=== PATIENT | female | born 1950 | race African-American/Black ===

== ENCOUNTER 2016-07-03 00:10 | Inpatient (IN) | payer OTHER ==
--- NOTE | 2016-07-03 00:52 | PDOC ---
History of Present Illness - General History Source: Patient <Cabrera Rodríguez - Last Filed: 07/03/16 02:02> - General History Source: Patient Exam Limitations: No Limitations - History of Present Illness Initial Comments: 07/03/16 01:15 The patient is a 65 year old female with significant past medical history of CVA with left-sided residual, DVTs (on eliquis and lasix), CAD s/p card cath and stent placement 2014, hypertension, and hyperlipidemia who presents to the ED with 1 day of left ankle pain and swelling. Patient reports she is able to ambulate with cane, however yesterday she was unable to ambulate secondary to moderate left ankle swelling and pain. She states she is unable to bear weight on her left leg. Denies trauma to the area or any recent falls. The patient denies fever, chills, cough, SOB, chest pain, and palpitations. The patient denies abdominal pain, nausea, vomiting, and diarrhea. Allergies: penicillin, hydromorphone HCl Social History: No alcohol, tobacco, or drug use reported. Past Surgical History: Cholecystectomy, Hysterectomy, Tonsillectomy PCP: Dr. Emily Cole <Vanessa Ward - Last Filed: 07/03/16 03:16> - General Chief Complaint: Injury Stated Complaint: ANKLE PAIN Time Seen by Provider: 07/03/16 00:50 Past History - Past Medical History Anemia: No Asthma: No Cancer: No Cardiac Disorders: Yes CVA: Yes COPD: No CHF: No Dementia: No Diabetes: No GI Disorders: Yes (REFLUX.) Disorders: No HTN: Yes Hypercholesterolemia: Yes Liver Disease: No Seizures: No Thyroid Disease: No - Surgical History Abdominal Surgery: Yes Cardiac Surgery: Yes (stent placement) Cholecystectomy: Yes Lung Surgery: No Neurologic Surgery: No Orthopedic Surgery: No - Immunization History Immunization Up to Date: No - Psycho/Social/Smoking Cessation Hx Anxiety: No Suicidal Ideation: No Smoking Status: No Smoking History: Never smoked Have you smoked in the past 12 months: No Number of Cigarettes Smoked Daily: 0 Cigars Per Day: 0 Information on smoking cessation initiated: No Hx Alcohol Use: No Drug/Substance Use Hx: No Substance Use Type: None Hx Substance Use Treatment: No <Cabrera Rodríguez - Last Filed: 07/03/16 02:02> <Vanessa Ward - Last Filed: 07/03/16 03:16> - Past Medical History Allergies/Adverse Reactions: Allergies Allergy/AdvReac Type Severity Reaction Status Date / Time Penicillins Allergy Verified 07/03/16 00:24 hydromorphone HCl AdvReac Severe HALLUCINATI Verified 07/03/16 00:24 [From Dilaudid] ONS Home Medications: Ambulatory Orders Atorvastatin Ca [Lipitor] 80 mg PO HS 02/24/16 Baclofen 10 mg PO DAILY 02/24/16 Colchicine [Mitigare] 0.6 mg PO DAILY 02/24/16 Docusate Sodium [Colace -] 200 mg PO DAILY 02/24/16 Gabapentin [Neurontin -] 300 mg PO Q8H 02/24/16 Metoprolol Succinate [Toprol Xl] 25 mg PO BID 02/24/16 Apixaban [Eliquis] 5 mg PO BID 07/03/16 Famotidine [Pepcid -] 20 mg PO BID 07/03/16 Famotidine [Pepcid -] 40 mg PO BID 07/03/16 Ipratropium/Albuterol Sulfate [Combivent Respimat Inhal [place]] 20 mcg IH PRN Potassium Acetate [Potassium Acetate -] 20 meq PO BID 07/03/16 Tramadol HCl/Acetaminophen [Tramadol-Acetaminophn 37.5-325] 1 each PO QID Review of Systems - Review of Systems Able to Perform ROS?: Yes Comments:: 07/03/16 01:15 CONSTITUTIONAL: Absent: fever, no chills, no fatigue EYES: Absent: visual changes ENT: Absent: ear pain, no sore throat CARDIOVASCULAR: Absent: chest pain, no palpitations RESPIRATORY: Absent: cough, no SOB GI: Absent: abdominal pain, no nausea, no vomiting, no constipation, no diarrhea GENITOURINARY: Absent: dysuria, no frequency, no hematuria MUSCULOSKELETAL: +left ankle pain and swelling Absent: back pain, no myalgia SKIN: Absent: rash NEURO: Absent: headache <Vanessa Ward - Last Filed: 07/03/16 03:16> *Physical Exam - Vital Signs Last Vital Signs Temp Pulse Resp BP Pulse Ox 98.6 F 90 14 144/61 96 07/03/16 00:24 07/03/16 00:24 07/03/16 00:24 07/03/16 00:24 07/03/16 00:24 <Cabrera Rodríguez - Last Filed: 07/03/16 02:02> - Vital Signs Last Vital Signs Temp Pulse Resp BP Pulse Ox 98.6 F 90 14 144/61 96 07/03/16 00:24 07/03/16 00:24 07/03/16 00:24 07/03/16 00:24 07/03/16 00:24 - Physical Exam Comments: 07/03/16 01:15 GENERAL: Well-appearing, well-nourished. Mild distress. HEENT: Normocephalic, atraumatic. PERRL, EOM intact. CARDIOVASCULAR: Normal S1, S2. Regular rate and rhythm. PULMONARY: Clear to auscultation bilaterally. ABDOMEN: Obese. Soft, non-distended, non-tender. EXTREMITIES: Decreased ROM of left calf and ankle secondary to pain. Mild diffuse swelling and tenderness from the left calf to the foot. No bony deformities. SKIN: Warm, dry. No rash NEUROLOGICAL: No focal neurological deficits. <Vanessa Ward - Last Filed: 07/03/16 03:16> Heart Score/ECG Review - ECG Impressions Comment:: 07/03/16 03:15 Sinus rhythm with frequent premature ventricular complexes @86bpm Low voltage QRS Cannot r/o Anterior infarct, age undetermined Abnormal ECG <Vanessa Ward - Last Filed: 07/03/16 03:16> ED Treatment Course - LABORATORY CBC & Chemistry Diagram: 07/03/16 02:24 07/03/16 02:24 - RADIOLOGY Radiograph Interpretation: 07/03/16 01:57 EXAM: Venous duplex unilateral, left lower extremity Reviewed by Imaging operations staff specialist security: FINDINGS: Left common femoral vein is patent. There is partially occlusive thrombus throughout the superficial femoral vein and popliteal vein. IMPRESSION: Partially occlusive thrombus throughout the left superficial femoral vein and popliteal vein. - Medications Given in the ED: ED Medications Discontinued Medications Generic Name Dose Route Start Last Admin Trade Name Freq PRN Reason Stop Dose Admin Furosemide 40 mg 07/03/16 00:53 07/03/16 01:04 Lasix - PO 07/03/16 00:54 40 mg ONCE ONE Administration Tramadol HCl 50 mg 07/03/16 00:54 07/03/16 01:04 Ultram - PO 07/03/16 00:55 50 mg ONCE ONE Administration <Vanessa Ward - Last Filed: 07/03/16 03:16> Medical Decision Making - Medical Decision Making 07/03/16 02:02 Dr. Rodríguez: The scribe's documentation has been prepared under my direction and personally reviewed by me in its entirery. I confirm that the note above accurately reflects all work, treatment, procedures, and medical decision making performed by me. Pt found to have left leg DVT with partially occlusive thrombus throughout the superficial femoral veins and popliteal vein. Pt will admit <Cabrera Rodríguez - Last Filed: 07/03/16 02:02> - Medical Decision Making 07/03/16 02:[address] Emily Cole (via answering service) at 2:00 Awaiting call back 07/03/16 02:23 Second call placed to Dr. Cole (via answering service) at 2:23 Awaiting call back 07/03/16 02:24 Patient's case discussed with Dr. Cole at 2:24 <Vanessa Ward - Last Filed: 07/03/16 03:16> *DC/Admit/Observation/Transfer - Discharge Dispostion Admit: Yes <Cabrera Rodríguez - Last Filed: 07/03/16 02:02> - Attestations Scribe Attestion: 07/03/16 01:16 Documentation prepared by Vanessa Ward, acting as medical records receptionist for Cabrera Rodríguez MD <Vanessa Ward - Last Filed: 07/03/16 03:16> Diagnosis at time of Disposition: Left leg DVT - Referrals
[2016-07-03] MEDS ORDERED: FUROSEMIDE 40 MG TABLET (FP) PO ONE (00:53)
[2016-07-03] MEDS ORDERED: traMADol HCL 50 MG TABLET PO ONE (00:54)
[2016-07-03] MEDS ORDERED: FUROSEMIDE 40 MG TABLET (FP) ONE (01:02)
[2016-07-03] MEDS ORDERED: traMADol HCL 50 MG TABLET ONE (01:02)
[2016-07-03] MEDS ORDERED: HEPARIN NA (PORCINE) 5,000 UNITS/ML 1ML VIAL IVPUSH PRN ×2 (02:25)
[2016-07-03] MEDS ORDERED: HEPARIN INFUSION - 500 ML IVPB SCH (02:30)
[2016-07-03 02:32] LABS: EOSINOPHIL 2.5 % (0-4.5); MCHC 32.5 g/dl (32.0-36.0); MEAN PLT VOLUME 9.9 fl (7.5-11.1); NEUTROPHILS 53.8 % (42.8-82.8); PLATELET COUNT 200 K/MM3 (134-434); RDW 17.5 % (11.6-15.6); WHITE BLOOD COUNT 8.9 K/mm3 (4.0-10.0)
[2016-07-03 02:46] LABS: INR 1.48 (0.82-1.09); PROTHROMBIN TIME (PATIENT) 16.4 SEC (9.98-11.88)
[2016-07-03 02:57] LABS: ALBUMIN 3.4 g/dl (3.4-5.0); ALK PHOS 78 U/L (45-117); ANION GAP 11 (8-16); BILIRUBIN,TOTAL 0.4 mg/dL (0.2-1.0); CALCIUM 9.1 mg/dL (8.5-10.1); CO2 29 mmol/L (21-32); CREATININE 0.8 mg/dL (0.55-1.02); GLUCOSE,RANDOM 161 mg/dL (74-106); SGOT/AST 19 U/L (15-37); SGPT/ALT 18 U/L (12-78); TOT PROT 7.8 g/dl (6.4-8.2)
[2016-07-03] MEDS ORDERED: HEPARIN INFUSION - 500 ML IVPB ONE (03:54)
[2016-07-03 04:22] LABS: URINE APPEARANCE CLEAR; URINE BILIRUBIN NEGATIVE (NEGATIVE); URINE COLOR LTYELLOW; URINE GLUCOSE (UA) NEGATIVE (NEGATIVE); URINE KETONE NEGATIVE (NEGATIVE); URINE LEUK ESTERASE NEGATIVE (NEGATIVE); URINE NITRITE NEGATIVE (NEGATIVE); URINE PROTEIN NEGATIVE (NEGATIVE); URINE UROBILINOGEN NEGATIVE E.U./dl (0.2-1.0)
[2016-07-03 04:24] LABS: URINE BLOOD 1+ (NEGATIVE)
[2016-07-03 04:27] LABS: URINE BACTERIA RARE /hpf (NONE SEEN); URINE HYALINE CAST 1 /lpf; URINE MUCUS RARE; URINE RBC 2 /hpf (0-3); URINE WBC 1 /hpf (3-5)
[2016-07-03] MEDS ORDERED: ALBUTEROL SO4 0.083% IH SOL 2.5 MG/3 ML VIAL.NEB. NEB PRN (05:50)
[2016-07-03 06:22] VITALS: BMI 48.7
[2016-07-03] MEDS: FUROSEMIDE 40 MG TABLET (FP) PO SCH ×2 (06:35→15:07)
[2016-07-03] MEDS: GABAPENTIN 300 MG CAPSULE (FP) PO SCH ×3 (06:35→21:46)
--- NOTE | 2016-07-03 09:30 | HP ---
Admitting History and Physical - Primary Care Physician PCP: Marcelino Hercules - Admission Chief Complaint: left ankle and foot pain History of Present Illness: developed worsenig left ankle and foot pain with increased swelling over the past 2-3 days. was at her son's birthday 4 days ago, was well at that time denies, trauma or fall since recent prolonged hospitalizations has been using quad-cane at home and bedside commode needs some assistance in adls admitted to [facility] 01.03 for right pontine cva-residual left hemiparesis left LLE DVT, pulmonary embolism 03.05-thrombectomy and CABG at [facility] has been on asa, plavix and warfarin since, but warfarin dose was difficult to adjust within therapeutic range so was switched to eliquis since early 06.06 History Source: Patient Limitations to Obtaining History: No Limitations - Past Medical History 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: CVA (Right pontine CVA with residual left hemiparesis) Cardiovascular: Yes: AFIB, CAD (s/p card cath and LAD-DESstent placement summer CABG ), HTN, Hyperlipdemia Pulmonary: Yes: Sleep Apnea Gastrointestinal: Yes: Hiatal Hernia, Other (H/o H.pylori, was treated 2014 year ago.) Psych: Yes: Anxiety Musculoskeletal: Yes: Hemiparesis Rheumatology: Yes: Gout Endocrine: Yes: Diabetes Mellitus (diet controlled) - Past Surgical History Past Surgical History: Yes: CABG (2015), Cholecystectomy, Hysterectomy, Tonsillectomy Additional Past Surgical History: thrombectomy after Pulmonary embolism - Advance Directives Advance Directives: Yes: Health Care Proxy - Smoking History Smoking history: Never smoked Have you smoked in the past 12 months: No Aproximately how many cigarettes per day: 0 - Alcohol/Substance Use Hx Alcohol Use: No - Social History Usual Living Arrangement: Yes: With Child ADL: Independent History of Recent Travel: No Home Medications - Allergies Allergies/Adverse Reactions: Allergies Allergy/AdvReac Type Severity Reaction Status Date / Time Penicillins Allergy Verified 07/03/16 00:24 hydromorphone HCl AdvReac Severe HALLUCINATI Verified 07/03/16 00:24 [From Dilaudid] ONS - Home Medications Home Medications: Ambulatory Orders Atorvastatin Ca [Lipitor] 80 mg PO HS 02/24/16 Baclofen 10 mg PO DAILY 02/24/16 Colchicine [Mitigare] 0.6 mg PO DAILY 02/24/16 Docusate Sodium [Colace -] 200 mg PO DAILY 02/24/16 Gabapentin [Neurontin -] 300 mg PO Q8H 02/24/16 Metoprolol Succinate [Toprol Xl] 25 mg PO BID 02/24/16 Apixaban [Eliquis] 5 mg PO BID 07/03/16 Famotidine [Pepcid -] 20 mg PO BID 07/03/16 Famotidine [Pepcid -] 40 mg PO BID 07/03/16 Ipratropium/Albuterol Sulfate [Combivent Respimat Inhal [place]] 20 mcg IH PRN Potassium Acetate [Potassium Acetate -] 20 meq PO BID 07/03/16 Tramadol HCl/Acetaminophen [Tramadol-Acetaminophn 37.5-325] 1 each PO QID Family Disease History - Family Disease History Family Disease History: Diabetes: Father, Heart Disease: Mother Review of Systems - Review of Systems Constitutional: reports: No Symptoms Eyes: reports: No Symptoms HENT: reports: No Symptoms Neck: reports: No Symptoms Cardiovascular: reports: No Symptoms Gastrointestinal: reports: No Symptoms Genitourinary: reports: No Symptoms Breasts: reports: No Symptoms Reported Musculoskeletal: reports: Other (severe left foot and ankle pain, unable to bear weight on it) Physical Examination Vital Signs: Vital Signs Temperature 98.8 F 07/03/16 04:53 Pulse Rate 75 07/03/16 04:53 Respiratory Rate 18 07/03/16 05:12 Blood Pressure 142/70 07/03/16 04:53 O2 Sat by Pulse Oximetry (%) 95 07/03/16 05:12 Constitutional: Yes: Calm Eyes: Yes: EOM Intact HENT: Yes: Normocephalic Neck: Yes: Trachea Midline Cardiovascular: Yes: Regular Rate and Rhythm Respiratory: Yes: CTA Bilaterally Gastrointestinal: Yes: Normal Bowel Sounds, Soft Edema: Yes Edema: LLE: 2+, RLE: Trace Peripheral Pulses WNL: Yes Neurological: Yes: Alert, Oriented, Weakness (left hemiparesis, mild aphasia) Psychiatric: Yes: WNL Labs: CBC, BMP 07/03/16 02:24 07/03/16 02:24 Imaging - Results Chest X-ray: Report Reviewed Ultrasound: Report Reviewed (left spf.femoral and popliteal DVT) Problem List - Problems (1) Left leg DVT Code(s): I82.402 - ACUTE EMBOLISM AND THOMBOS UNSP DEEP VEINS OF L LOW EXTREM Qualifiers: Affected thrombotic vein of extremity: femoral Chronicity: unspecified Qualified Code(s): I82.412 - Acute embolism and thrombosis of left femoral vein (2) CAD (coronary artery disease), [place] coronary artery Code(s): I25.10 - ATHSCL HEART DISEASE OF [place] CORONARY ARTERY W/O ANG PCTRS Qualifiers: [place] vs. transplanted heart: [place] heart (3) HTN (hypertension) Code(s): I10 - ESSENTIAL (PRIMARY) HYPERTENSION Qualifiers: Hypertension type: essential hypertension Qualified Code(s): I10 - Essential (primary) hypertension (4) Hyperlipidemia Code(s): E78.5 - HYPERLIPIDEMIA, UNSPECIFIED Qualifiers: Hyperlipidemia type: unspecified Qualified Code(s): E78.5 - Hyperlipidemia, unspecified (5) Stroke Code(s): I63.9 - CEREBRAL INFARCTION, UNSPECIFIED Qualifiers: CVA mechanism: occlusion Precerebral and cerebral artery: vertebral artery Laterality of affected vessel: right Qualified Code(s): I63.211 - Cerebral infarction due to unspecified occlusion or stenosis of right vertebral arteries Assessment/Plan DVT in left lower extremity -known since on ASA/Plavix/Eliquis at home, no prior studies available at this point to compare if it is stable/worse or better, however increased swelling and pain will obtain old records from [facility] to review r/o gout, check uric acid level, xray vascular evaluation iv heparin for now, continue asa/plavix bedrest pain control
[2016-07-03] MEDS ORDERED: POTASSIUM ACETATE PO SCH (10:00)
[2016-07-03] MEDS ORDERED: CLOPIDOGREL BISULFATE 75 MG TABLET (FP) PO SCH (10:00)
[2016-07-03 11:07] LABS: URIC ACID 7.7 mg/dL (2.6-7.2)
[2016-07-03] MEDS: METOPROLOL SUCCINATE 25 MG TAB.SR.24H (FP) PO SCH ×2 (11:17→21:47)
[2016-07-03] MEDS: POTASSIUM CHLORIDE TABS 20 MEQ TABLET.ER (FP) PO SCH ×2 (11:18→21:46)
[2016-07-03] MEDS: traMADol HCL 50 MG TABLET PO PRN ×2 (11:18→18:12)
[2016-07-03] MEDS: DOCUSATE SODIUM 100 MG CAPSULE (FP) PO SCH (11:18)
[2016-07-03] MEDS: NYSTATIN POWDER 100,000 UNITS/GM - 15 GM TOPICAL POWDER TP SCH (11:19)
--- NOTE | 2016-07-03 11:36 | EKG ---
Test Reason : Blood Pressure : / mmHG Vent. Rate : 086 BPM Atrial Rate : 086 BPM P-R Int : 180 ms QRS Dur : 096 ms QT Int : 382 ms P-R-T Axes : 040 -05 019 degrees QTc Int : 457 ms SINUS RHYTHM WITH FREQUENT PREMATURE VENTRICULAR COMPLEXES LOW VOLTAGE QRS CANNOT RULE OUT ANTERIOR INFARCT (CITED ON OR BEFORE 11-NOV-2011) ABNORMAL ECG WHEN COMPARED WITH ECG OF 24-FEB-2016 08:59, FUSION COMPLEXES ARE NO LONGER PRESENT Confirmed by BRISEYDA PATRICK MD ([id number]) on 07/03/2016 11:36:11 AM Referred By: Confirmed By:BRISEYDA PATRICK MD
--- NOTE | 2016-07-03 12:55 | CON.CARD ---
Consult Consult Specialty:: cardiology Reason for Consultation:: extensive cardiac/cerebrovascular hx; new DVT - History of Present Illness Chief Complaint: Pt A&Ox3; exquisite pain on small dorsal area of left foot; no chest pain or dyspnea; no calf pain History of Present Illness: The patient is a 65 year old female with significant past medical history of CVA with left-sided residual weakness, DVTs (on eliquis and lasix), CAD s/p card cath and stent placement 2014, hypertension, and hyperlipidemia who presents to the ED with 1 day of left ankle pain and swelling. Patient reports she is able to ambulate with cane, however, yesterday she was unable to ambulate secondary to moderate left ankle swelling and pain. She states she is unable to bear weight on her left leg. Denies trauma to the area or any recent falls. The patient denies fever, chills, cough, SOB, chest pain, and palpitations. The patient denies abdominal pain, nausea, vomiting, and diarrhea. Allergies: penicillin, hydromorphone HCl Social History: No alcohol, tobacco, or drug use reported. Past Surgical History: Cholecystectomy, Hysterectomy, Tonsillectomy PCP: Dr. 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 (Right pontine CVA with residual left hemiparesis) Cardio/Vascular: Yes: AFIB, CAD (s/p card cath and LAD-DESstent placement summer CABG ), HTN, Hyperlipdemia Pulmonary: Yes: Sleep Apnea Gastrointestinal: Yes: Hiatal Hernia, Other (H/o H.pylori, was treated 2014 year ago.) Reproductive: Yes: Postmenopausal ...: No Psych: Yes: Anxiety Musculoskeletal: Yes: Hemiparesis Rheumatology: Yes: Gout Endocrine: Yes: Diabetes Mellitus (diet controlled) - Past Surgical History Past Surgical History: Yes: CABG (2015), Cholecystectomy, Hysterectomy, Tonsillectomy - Alcohol/Substance Use Hx Alcohol Use: No - Smoking History Smoking history: Never smoked Have you smoked in the past 12 months: No Aproximately how many cigarettes per day: 0 - Social History Usual Living Arrangement: With Significant Other ADL: Independent History of Recent Travel: No Home Medications - Allergies Allergies/Adverse Reactions: Allergies Allergy/AdvReac Type Severity Reaction Status Date / Time Penicillins Allergy Verified 07/03/16 00:24 hydromorphone HCl AdvReac Severe HALLUCINATI Verified 07/03/16 00:24 [From Dilaudid] ONS - Home Medications Home Medications: Ambulatory Orders Atorvastatin Ca [Lipitor] 80 mg PO HS 02/24/16 Baclofen 10 mg PO DAILY 02/24/16 Colchicine [Mitigare] 0.6 mg PO DAILY 02/24/16 Docusate Sodium [Colace -] 200 mg PO DAILY 02/24/16 Gabapentin [Neurontin -] 300 mg PO Q8H 02/24/16 Metoprolol Succinate [Toprol Xl] 25 mg PO BID 02/24/16 Apixaban [Eliquis] 5 mg PO BID 07/03/16 Famotidine [Pepcid -] 20 mg PO BID 07/03/16 Famotidine [Pepcid -] 40 mg PO BID 07/03/16 Ipratropium/Albuterol Sulfate [Combivent Respimat Inhal [place]] 20 mcg IH PRN Potassium Acetate [Potassium Acetate -] 20 meq PO BID 07/03/16 Tramadol HCl/Acetaminophen [Tramadol-Acetaminophn 37.5-325] 1 each PO QID Family Disease History - Family Disease History Family Disease History: Diabetes: Father, Heart Disease: Mother Vital Signs: Vital Signs Temperature 98.5 F 07/03/16 09:00 Pulse Rate 84 07/03/16 09:00 Respiratory Rate 20 07/03/16 09:00 Blood Pressure 139/62 07/03/16 09:00 O2 Sat by Pulse Oximetry (%) 96 07/03/16 09:00 - Other Data Labs, Other Data: CBC, BMP 07/03/16 02:24 07/03/16 02:24 INR, PTT INR 1.48 (0.82-1.09) H 07/03/16 02:24 Problem List - Problems (1) Left leg DVT Assessment/Plan: Reords obtained from [facility] note 02/2017 US of lower extremities, with conclusion of DVT with occluded left femoral-->popliteal artery. This is in the same area as today's US, and was discussed with Dr. Bell, radiologist who read today's report. 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 Recommend continuing apixaban 5 mg bid and ASA 81 mg daily. May discontinue clopidogrel (last coronary stent 2014; s/p CABG 2016; hx rectal bleed). 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 Code(s): F06.31 - MOOD DISORDER DUE TO KNOWN PHYSIOL COND W DEPRESSV FEATURES (4) HTN (hypertension) Code(s): I10 - ESSENTIAL (PRIMARY) HYPERTENSION Qualifiers: Hypertension type: essential hypertension Qualified Code(s): I10 - Essential (primary) hypertension (5) Hyperlipidemia Code(s): E78.5 - HYPERLIPIDEMIA, UNSPECIFIED Qualifiers: Hyperlipidemia type: unspecified Qualified Code(s): E78.5 - Hyperlipidemia, unspecified (6) Stroke Code(s): I63.9 - CEREBRAL INFARCTION, UNSPECIFIED Qualifiers: CVA mechanism: occlusion Precerebral and cerebral artery: vertebral artery Laterality of affected vessel: right Qualified Code(s): I63.211 - Cerebral infarction due to unspecified occlusion or stenosis of right vertebral arteries (7) Obesity Code(s): E66.9 - OBESITY, UNSPECIFIED
[2016-07-03 13:20] LABS: CHOLESTEROL 167 mg/dL (50-200); LDL CHOLESTEROL (ONLY SJRH) 95 mg/dL (5-100)
[2016-07-03] MEDS ORDERED: ACETAMINOPHEN WITH CODEINE 300MG/30MG TABLET PO PRN (13:32)
[2016-07-03] MEDS: APIXABAN 5 MG TABLET PO SCH (21:45)
[2016-07-03] MEDS: ATORVASTATIN CA 80 MG TABLET (FP) PO SCH (21:46)
[2016-07-03] MEDS: POLYETHYLENE GLYCOL 3350 119 GM BTL PO SCH (21:46)
--- NOTE | 2016-07-03 23:26 | CONSULT ---
Consult - History of Present Illness History of Present Illness: 65 yo female with history of left leg DVT in February 2016. She subsequently required CABG and had vein taken from left calf. She has been on Eliquis and aspirin. She was admitted with new swelling in the left ankle and leg pain. 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: CVA (Right pontine CVA with residual left hemiparesis) Cardio/Vascular: Yes: AFIB, CAD (s/p card cath and LAD-DESstent placement summer CABG ), HTN, Hyperlipdemia Pulmonary: Yes: Sleep Apnea Gastrointestinal: Yes: Hiatal Hernia, Other (H/o H.pylori, was treated 2014 year ago.) ...: No Psych: Yes: Anxiety Musculoskeletal: Yes: Hemiparesis Rheumatology: Yes: Gout Endocrine: Yes: Diabetes Mellitus (diet controlled) - Past Surgical History Past Surgical History: Yes: CABG (2015), Cholecystectomy, Hysterectomy, Tonsillectomy - Alcohol/Substance Use Hx Alcohol Use: No - Smoking History Smoking history: Never smoked Have you smoked in the past 12 months: No Aproximately how many cigarettes per day: 0 - Social History Usual Living Arrangement: With Significant Other ADL: Independent History of Recent Travel: No Home Medications - Allergies Allergies/Adverse Reactions: Allergies Allergy/AdvReac Type Severity Reaction Status Date / Time Penicillins Allergy Verified 07/03/16 00:24 hydromorphone HCl AdvReac Severe HALLUCINATI Verified 07/03/16 00:24 [From Dilaudid] ONS - Home Medications Home Medications: Ambulatory Orders Atorvastatin Ca [Lipitor] 80 mg PO HS 02/24/16 Baclofen 10 mg PO DAILY 02/24/16 Colchicine [Mitigare] 0.6 mg PO DAILY 02/24/16 Docusate Sodium [Colace -] 200 mg PO DAILY 02/24/16 Gabapentin [Neurontin -] 300 mg PO Q8H 02/24/16 Metoprolol Succinate [Toprol Xl] 25 mg PO BID 02/24/16 Apixaban [Eliquis] 5 mg PO BID 07/03/16 Famotidine [Pepcid -] 20 mg PO BID 07/03/16 Famotidine [Pepcid -] 40 mg PO BID 07/03/16 Ipratropium/Albuterol Sulfate [Combivent Respimat Inhal [place]] 20 mcg IH PRN Potassium Acetate [Potassium Acetate -] 20 meq PO BID 07/03/16 Tramadol HCl/Acetaminophen [Tramadol-Acetaminophn 37.5-325] 1 each PO QID Family Disease History - Family Disease History Family Disease History: Diabetes: Father, Heart Disease: Mother Physical Exam Vital Signs: Vital Signs Temperature 99.7 F H 07/03/16 20:20 Pulse Rate 86 07/03/16 20:20 Respiratory Rate 20 07/03/16 20:26 Blood Pressure 140/67 07/03/16 20:20 O2 Sat by Pulse Oximetry (%) 97 07/03/16 20:26 Constitutional: Yes: Obese Neck: Yes: Supple Cardiovascular: Yes: Regular Rate and Rhythm Respiratory: Yes: Regular Gastrointestinal: Yes: Soft Edema: Yes Edema: LUE: 2+, RUE: 2+ Peripheral Pulses WNL: Yes Labs: CBC, BMP 07/03/16 02:24 07/03/16 02:24 Imaging - Results Ultrasound: Image Reviewed (Left femoral vein with partial compression and non- phasic flow suggesting chronic scarring from old DVT) Problem List - Problems (1) Left leg DVT Assessment/Plan: History and findings suggest old DVT of left femoral vein with no evidence for new thrombosis. Additional anticoagulation is not required and this is not a failure of anticoagulation therapy. Recommend leg elevation and support hose for post-phlebitic swelling. Code(s): I82.402 - ACUTE EMBOLISM AND THOMBOS UNSP DEEP VEINS OF L LOW EXTREM Qualifiers: Affected thrombotic vein of extremity: femoral Chronicity: chronic Qualified Code(s): I82.512 - Chronic embolism and thrombosis of left femoral vein
[2016-07-04] MEDS: GABAPENTIN 300 MG CAPSULE (FP) PO SCH ×3 (05:34→21:01)
[2016-07-04] MEDS: FUROSEMIDE 40 MG TABLET (FP) PO SCH ×2 (05:34→13:35)
[2016-07-04] MEDS: traMADol HCL 50 MG TABLET PO PRN ×2 (05:35→16:28)
[2016-07-04 07:37] LABS: BASOPHIL 0.6 % (0-2.0); EOSINOPHIL 2.5 % (0-4.5); MCH 26.3 pg (25.7-33.7); MCHC 32.6 g/dl (32.0-36.0); MEAN CELL VOLUME 80.5 fl (80-96); MEAN PLT VOLUME 9.8 fl (7.5-11.1); NEUTROPHILS 54.5 % (42.8-82.8); PLATELET COUNT 182 K/MM3 (134-434); RDW 17.2 % (11.6-15.6); WHITE BLOOD COUNT 8.9 K/mm3 (4.0-10.0)
[2016-07-04 08:04] LABS: ANION GAP 7 (8-16); CALCIUM 9.1 mg/dL (8.5-10.1); CO2 32 mmol/L (21-32); CREATININE 0.8 mg/dL (0.55-1.02); GLUCOSE,RANDOM 143 mg/dL (74-106); SGOT/AST 19 U/L (15-37); SGPT/ALT 19 U/L (12-78)
[2016-07-04 08:06] LABS: ALK PHOS 83 U/L (45-117); BILIRUBIN,TOTAL 0.9 mg/dL (0.2-1.0); TOT PROT 7.4 g/dl (6.4-8.2)
[2016-07-04 08:16] LABS: INR 1.66 (0.82-1.09); PROTHROMBIN TIME (PATIENT) 18.5 SEC (9.98-11.88)
[2016-07-04 08:19] LABS: ACTIVATED PTT 34.4 SECONDS (26.9-34.4)
[2016-07-04] MEDS ORDERED: PT OWN MED DRAWER 7, Y5N ONE (09:08)
--- NOTE | 2016-07-04 09:16 | PN ---
Progress Note (short form) - Note Progress Note: c/o right wrist pain and swelling ankle pain little better, but still swollen had transient fever yesterday without localizing issues CBC, BMP 07/04/16 06:00 07/04/16 06:00 S1S2 RRR Lungs cta abd soft NT ankle swelling, right wrist swelling and pain old left hemiparesis Imp old left leg DVT joint aches, now more diffuse, transient fever yesterday cultures taken, WBC normal LLE DVT, PE/thrombectomy PFO closure 1 vessel CABG Obesity gout HTN Plan consults appreciated stopped heparin, resumed eliquis can dc plavix physical therapy rheumatology evaluation Problem List - Problems (1) Left leg DVT Code(s): I82.402 - ACUTE EMBOLISM AND THOMBOS UNSP DEEP VEINS OF L LOW EXTREM Qualifiers: Affected thrombotic vein of extremity: femoral Chronicity: chronic Qualified Code(s): I82.512 - Chronic embolism and thrombosis of left femoral vein (2) CAD (coronary artery disease), [place] coronary artery Code(s): I25.10 - ATHSCL HEART DISEASE OF [place] CORONARY ARTERY W/O ANG PCTRS Qualifiers: [place] vs. transplanted heart: [place] heart (3) HTN (hypertension) Code(s): I10 - ESSENTIAL (PRIMARY) HYPERTENSION Qualifiers: Hypertension type: essential hypertension Qualified Code(s): I10 - Essential (primary) hypertension (4) Hyperlipidemia Code(s): E78.5 - HYPERLIPIDEMIA, UNSPECIFIED Qualifiers: Hyperlipidemia type: unspecified Qualified Code(s): E78.5 - Hyperlipidemia, unspecified (5) Stroke Code(s): I63.9 - CEREBRAL INFARCTION, UNSPECIFIED Qualifiers: CVA mechanism: occlusion Precerebral and cerebral artery: vertebral artery Laterality of affected vessel: right Qualified Code(s): I63.211 - Cerebral infarction due to unspecified occlusion or stenosis of right vertebral arteries
--- NOTE | 2016-07-04 09:27 | PN ---
Progress Note, Physician Chief Complaint: Pt A&Ox3; no chest pain or dyspnea; still with pain in left foot, and now in right hand. History of Present Illness: The patient is a 65 year old black female (b. 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 Patient reports she is able to ambulate with cane, however, yesterday she was unable to ambulate secondary to moderate left ankle swelling and pain. She states she is unable to bear weight on her left leg. Denies trauma to the area or any recent falls. The patient denies fever, chills, cough, SOB, chest pain, and palpitations. The patient denies abdominal pain, nausea, vomiting, and diarrhea. Allergies: penicillin, hydromorphone HCl Social History: No alcohol, tobacco, or drug use reported. 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 - Current Medication List Current Medications: Active Medications Acetaminophen (Tylenol -) 650 mg PO Q4H PRN PRN Reason: FEVER Acetaminophen/Codeine Phosphate (Tylenol # 3 -) 1 tab PO Q4H PRN PRN Reason: FEVER OR PAIN Last Admin: 07/03/16 15:07 Dose: 1 tab Albuterol Sulfate (Ventolin 0.083% Nebulizer Soln -) 1 amp NEB Q6H PRN PRN Reason: SHORT OF BREATH/WHEEZING Apixaban (Eliquis -) 5 mg PO BID [facility] Last Admin: 07/03/16 21:45 Dose: 5 mg Atorvastatin Calcium (Lipitor -) 80 mg PO HS [facility] Last Admin: 07/03/16 21:46 Dose: 80 mg Docusate Sodium (Colace -) 200 mg PO DAILY [facility] Last Admin: 07/03/16 11:18 Dose: 200 mg Furosemide (Lasix -) 40 mg PO BID@0600,1400 [facility] Last Admin: 07/04/16 05:34 Dose: 40 mg Gabapentin (Neurontin -) 300 mg PO TID [facility] Last Admin: 07/04/16 05:34 Dose: 300 mg Metoprolol Succinate (Toprol Xl -) 25 mg PO BID [facility] Last Admin: 07/03/16 21:47 Dose: 25 mg Nystatin (Nystop Powder -) 1 applic TP DAILY [facility] Last Admin: 07/03/16 11:19 Dose: 1 applic Oxycodone HCl (Roxicodone -) 2.5 mg PO Q6H PRN PRN Reason: MODERATE PAIN Polyethylene Glycol (Miralax (For Daily Use) -) 17 gm PO DAILY [facility] Last Admin: 07/03/16 21:46 Dose: 17 gm Potassium Chloride (K-Dur -) 20 meq PO BID [facility] Last Admin: 07/03/16 21:46 Dose: 20 meq Tramadol HCl (Ultram -) 50 mg PO Q6H PRN PRN Reason: PAIN Last Admin: 07/04/16 05:35 Dose: 50 mg - Objective Vital Signs: Vital Signs Temperature 98.2 F 07/04/16 05:30 Pulse Rate 73 07/04/16 05:30 Respiratory Rate 20 07/04/16 05:30 Blood Pressure 122/59 07/04/16 05:30 O2 Sat by Pulse Oximetry (%) 97 07/03/16 20:26 Constitutional: Yes: Anxious, Mild Distress Eyes: Yes: WNL HENT: Yes: WNL Neck: Yes: WNL Cardiovascular: Yes: S1, S2, S4 Respiratory: Yes: Regular Gastrointestinal: Yes: Soft ...Rectal Exam: Yes: Deferred Genitourinary: No: Anuria Breast(s): Yes: WNL Musculoskeletal: Yes: Joint Stiffness, Joint Swelling, Muscle Weakness Extremities: Yes: Cool Edema: No Peripheral Pulses WNL: No Peripheral Pulses: Left Doralis Pedis: 1+, Right Dorsalis Pedis: 1+ Neurological: Yes: Alert, Oriented, Pre-Existing Deficit, Weakness Psychiatric: Yes: Alert, Oriented Labs: CBC, BMP 07/04/16 06:00 07/04/16 06:00 INR, PTT INR 1.66 (0.82-1.09) H 07/04/16 06:00 Problem List - Problems (1) Left leg DVT Assessment/Plan: Reords obtained from [facility] note 02/2017 US of lower extremities, with conclusion of DVT with occluded left femoral-->popliteal artery. This is in the same area as today's US, and was discussed with Dr. Bell, radiologist who read today's report. 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 Recommend continuing apixaban 5 mg bid and ASA 81 mg daily. Now off clopidogrel. If possible, avoid non-aspirin NSAIDs due to cardiac risks, effect on BP. 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 Code(s): I10 - ESSENTIAL (PRIMARY) HYPERTENSION Qualifiers: Hypertension type: essential hypertension Qualified Code(s): I10 - Essential (primary) hypertension (5) Hyperlipidemia Assessment/Plan: on statin. Add Zetia 10 mg daily. Code(s): E78.5 - HYPERLIPIDEMIA, UNSPECIFIED Qualifiers: Hyperlipidemia type: unspecified Qualified Code(s): E78.5 - Hyperlipidemia, unspecified (6) Stroke Code(s): I63.9 - CEREBRAL INFARCTION, UNSPECIFIED Qualifiers: CVA mechanism: occlusion Precerebral and cerebral artery: vertebral artery Laterality of affected vessel: right Qualified Code(s): I63.211 - Cerebral infarction due to unspecified occlusion or stenosis of right vertebral arteries (7) Obesity Code(s): E66.9 - OBESITY, UNSPECIFIED (8) Arthritis Assessment/Plan: mutliple sites of pain, decreased ROM, swelling. 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 If possible, avoid non-steroidal NSAIDS (increased risk of bleeding, as pt is already on ASA and apixaban; increased cardiac risks; adverse effects on BP). Code(s): M19.90 - UNSPECIFIED OSTEOARTHRITIS, UNSPECIFIED SITE
[2016-07-04 10:09] LABS: THYROID STIMULATING HORMONE 6.43 uIU/ml (0.358-3.74)
[2016-07-04] MEDS: DOCUSATE SODIUM 100 MG CAPSULE (FP) PO SCH (10:10)
[2016-07-04] MEDS: POTASSIUM CHLORIDE TABS 20 MEQ TABLET.ER (FP) PO SCH ×2 (10:10→21:01)
[2016-07-04] MEDS: METOPROLOL SUCCINATE 25 MG TAB.SR.24H (FP) PO SCH ×2 (10:10→21:01)
[2016-07-04] MEDS: EZETIMIBE 10 MG TABLET (FP) PO SCH (10:10)
[2016-07-04] MEDS: APIXABAN 5 MG TABLET PO SCH ×2 (10:11→21:01)
[2016-07-04] MEDS: POLYETHYLENE GLYCOL 3350 119 GM BTL PO SCH (10:11)
[2016-07-04] MEDS: NYSTATIN POWDER 100,000 UNITS/GM - 15 GM TOPICAL POWDER TP SCH (10:12)
[2016-07-04] MEDS: ACETAMINOPHEN 325 MG TABLET (FP) PO PRN (14:15)
--- NOTE | 2016-07-04 17:09 | CONSULT ---
Consult Consult Specialty:: Rheumatology - History of Present Illness History of Present Illness: 65 year old female with PMH of hypertension, hypercholesterolemia, coronary artery disease, A. Fib, S/P angioplasty (2014) and subsequent CABG - vein taken from L leg. Hx of DVT and s/p DVT wit residual L sided hemiparesis, admitted with acyte arthritis in the left ankle. HPI. Five days ago she developed pain in the left ankle without any triggering factor. The pain progressed significantly to the point that she was not able to walk and yesterday she was admitted. Yesterday she developed pain in both knees and today she developed severe pain in the right wrist. She denies previous episodes of acute arthritis. Her mother had gouty arthritis. Since yesterday she has had fever (yesterday 100.9 and today 101.1), CBC had a WBC of 8.9, creatinine 0.8 and uric acid 7.7. 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: CVA (Right pontine CVA with residual left hemiparesis) Cardio/Vascular: Yes: AFIB, CAD (s/p card cath and LAD-DESstent placement summer CABG ), HTN, Hyperlipdemia Pulmonary: Yes: Sleep Apnea Gastrointestinal: Yes: Hiatal Hernia, Other (H/o H.pylori, was treated 2014 year ago.) ...: No Psych: Yes: Anxiety Musculoskeletal: Yes: Hemiparesis Rheumatology: Yes: Gout Endocrine: Yes: Diabetes Mellitus (diet controlled) - Past Surgical History Past Surgical History: Yes: CABG (2015), Cholecystectomy, Hysterectomy, Tonsillectomy - Alcohol/Substance Use Hx Alcohol Use: No - Smoking History Smoking history: Never smoked Have you smoked in the past 12 months: No Aproximately how many cigarettes per day: 0 - Social History Usual Living Arrangement: With Significant Other ADL: Independent History of Recent Travel: No Home Medications - Allergies Allergies/Adverse Reactions: Allergies Allergy/AdvReac Type Severity Reaction Status Date / Time Penicillins Allergy Verified 07/03/16 00:24 hydromorphone HCl AdvReac Severe HALLUCINATI Verified 07/03/16 00:24 [From Dilaudid] ONS - Home Medications Home Medications: Ambulatory Orders Atorvastatin Ca [Lipitor] 80 mg PO HS 02/24/16 Baclofen 10 mg PO DAILY 02/24/16 Colchicine [Mitigare] 0.6 mg PO DAILY 02/24/16 Docusate Sodium [Colace -] 200 mg PO DAILY 02/24/16 Gabapentin [Neurontin -] 300 mg PO Q8H 02/24/16 Metoprolol Succinate [Toprol Xl] 25 mg PO BID 02/24/16 Apixaban [Eliquis] 5 mg PO BID 07/03/16 Famotidine [Pepcid -] 20 mg PO BID 07/03/16 Famotidine [Pepcid -] 40 mg PO BID 07/03/16 Ipratropium/Albuterol Sulfate [Combivent Respimat Inhal [place]] 20 mcg IH PRN Potassium Acetate [Potassium Acetate -] 20 meq PO BID 07/03/16 Tramadol HCl/Acetaminophen [Tramadol-Acetaminophn 37.5-325] 1 each PO QID Family Disease History - Family Disease History Family Disease History: Diabetes: Father, Heart Disease: Mother (Her mother had gout) Review of Systems - Review of Systems Constitutional: reports: Malaise Eyes: reports: No Symptoms HENT: reports: No Symptoms Neck: reports: No Symptoms Cardiovascular: reports: No Symptoms Respiratory: reports: No Symptoms Gastrointestinal: reports: No Symptoms Musculoskeletal: reports: Other (See HPI) Pain Intensity: 9 Physical Exam Vital Signs: Vital Signs Temperature 101.1 F H 07/04/16 14:54 Pulse Rate 70 07/04/16 15:48 Respiratory Rate 20 07/04/16 14:54 Blood Pressure 121/66 07/04/16 14:54 O2 Sat by Pulse Oximetry (%) 98 07/04/16 15:48 Constitutional: Yes: Moderate Distress Eyes: Yes: WNL HENT: Yes: WNL Neck: Yes: WNL Cardiovascular: Yes: WNL Respiratory: Yes: WNL Gastrointestinal: Yes: WNL Musculoskeletal: Yes: Other (The right wrist, both knees and left ankle were tender and swollen. No other active joints.) Labs: CBC, BMP 07/04/16 06:00 07/04/16 06:00 Laboratory Tests 07/03/16 07/03/16 07/04/16 02:24 04:00 06:00 Uric Acid 7.7 H Calcium 9.1 Total Bilirubin 0.9 D AST 19 ALT 19 Alkaline Phosphatase 83 Total Protein 7.4 Albumin 3.0 L TSH 6.43 H D Urine Color Ltyellow Urine Appearance Clear Urine pH 5.0 D Ur Specific [place] 1.015 Urine Protein Negative Urine Glucose (UA) Negative Urine Ketones Negative Urine Blood 1+ H Urine Nitrite Negative Urine Bilirubin Negative Urine Urobilinogen Negative Ur Leukocyte Esterase Negative Urine RBC 2 Urine WBC 1 Problem List - Problems (1) Polyarticular arthritis Assessment/Plan: Oligoarticular acute arthritis. Rule out gouty arthritis. It is possible that the fever is related to gout. PROCEDURE. Under aseptic conditions I aspirated the left ankle, obtained 1 ml od slightly bloody fluid and injected Depomedrol 30 mg and 0.5 ml Lidocaine 1 %. Fluid sent for cell count, culture and crystal analysis. Start Indomethacine 50 mg QID Code(s): M13.0 - POLYARTHRITIS, UNSPECIFIED
[2016-07-04] MEDS: predniSONE 20 MG TABLET (UD) PO SCH (19:05)
[2016-07-04] MEDS: oxyCODONE HCL 5 MG TABLET PO PRN (19:06)
[2016-07-04] MEDS: ATORVASTATIN CA 80 MG TABLET (FP) PO SCH (21:01)
[2016-07-04 23:34] LABS: URINE APPEARANCE CLEAR; URINE BILIRUBIN NEGATIVE (NEGATIVE); URINE COLOR YELLOW; URINE GLUCOSE (UA) NEGATIVE (NEGATIVE); URINE KETONE NEGATIVE (NEGATIVE); URINE LEUK ESTERASE NEGATIVE (NEGATIVE); URINE NITRITE NEGATIVE (NEGATIVE); URINE PROTEIN NEGATIVE (NEGATIVE); URINE UROBILINOGEN 2.0 E.U/dl E.U./dl (0.2-1.0)
[2016-07-04 23:36] LABS: URINE BLOOD 1+ (NEGATIVE)
[2016-07-04 23:38] LABS: URINE BACTERIA RARE /hpf (NONE SEEN); URINE MUCUS RARE; URINE RBC 11 /hpf (0-3); URINE WBC 1 /hpf (3-5)
[2016-07-05] MEDS: traMADol HCL 50 MG TABLET PO PRN (06:16)
[2016-07-05] MEDS: FUROSEMIDE 40 MG TABLET (FP) PO SCH ×2 (06:17→15:53)
[2016-07-05] MEDS: GABAPENTIN 300 MG CAPSULE (FP) PO SCH ×3 (06:17→21:10)
[2016-07-05 07:29] LABS: BASOPHIL 0.2 % (0-2.0); MCHC 32.4 g/dl (32.0-36.0); MEAN CELL VOLUME 80.3 fl (80-96); MEAN PLT VOLUME 9.9 fl (7.5-11.1); NEUTROPHILS 75.3 % (42.8-82.8); PLATELET COUNT 217 K/MM3 (134-434); RDW 16.8 % (11.6-15.6); WHITE BLOOD COUNT 10.1 K/mm3 (4.0-10.0)
[2016-07-05 08:58] LABS: ANION GAP 7 (8-16); CALCIUM 9.7 mg/dL (8.5-10.1); CO2 29 mmol/L (21-32); GLUCOSE,RANDOM 210 mg/dL (74-106)
[2016-07-05 09:02] LABS: ALK PHOS 95 U/L (45-117); BILIRUBIN,TOTAL 0.5 mg/dL (0.2-1.0); CREATININE 0.7 mg/dL (0.55-1.02); SGOT/AST 25 U/L (15-37); SGPT/ALT 26 U/L (12-78)
[2016-07-05] MEDS ORDERED: PT OWN MED DRAWER 7, Y5N ONE ×3 (09:12→20:50)
[2016-07-05] MEDS: POTASSIUM CHLORIDE TABS 20 MEQ TABLET.ER (FP) PO SCH ×2 (10:10→21:09)
[2016-07-05] MEDS: EZETIMIBE 10 MG TABLET (FP) PO SCH (10:10)
[2016-07-05] MEDS: DOCUSATE SODIUM 100 MG CAPSULE (FP) PO SCH (10:10)
[2016-07-05] MEDS: METOPROLOL SUCCINATE 25 MG TAB.SR.24H (FP) PO SCH ×2 (10:10→21:10)
[2016-07-05] MEDS: APIXABAN 5 MG TABLET PO SCH ×2 (10:10→21:09)
[2016-07-05] MEDS: predniSONE 20 MG TABLET (UD) PO SCH (10:10)
[2016-07-05] MEDS: POLYETHYLENE GLYCOL 3350 119 GM BTL PO SCH (10:11)
[2016-07-05] MEDS: NYSTATIN POWDER 100,000 UNITS/GM - 15 GM TOPICAL POWDER TP SCH (10:11)
[2016-07-05] MEDS: oxyCODONE HCL 5 MG TABLET PO PRN (11:29)
--- NOTE | 2016-07-05 11:55 | PN ---
Progress Note, Physician History of Present Illness: seen and examined today in nad. no overnight events. no new complaints. - Current Medication List Current Medications: Active Medications Acetaminophen (Tylenol -) 650 mg PO Q4H PRN PRN Reason: FEVER Last Admin: 07/04/16 14:15 Dose: 650 mg Albuterol Sulfate (Ventolin 0.083% Nebulizer Soln -) 1 amp NEB Q6H PRN PRN Reason: SHORT OF BREATH/WHEEZING Apixaban (Eliquis -) 5 mg PO BID [facility] Last Admin: 07/05/16 10:10 Dose: 5 mg Atorvastatin Calcium (Lipitor -) 80 mg PO HS [facility] Last Admin: 07/04/16 21:01 Dose: 80 mg Docusate Sodium (Colace -) 200 mg PO DAILY [facility] Last Admin: 07/05/16 10:10 Dose: 200 mg Ezetimibe (Zetia -) 10 mg PO DAILY [facility] Last Admin: 07/05/16 10:10 Dose: 10 mg Furosemide (Lasix -) 40 mg PO BID@0600,1400 [facility] Last Admin: 07/05/16 06:17 Dose: 40 mg Gabapentin (Neurontin -) 300 mg PO TID [facility] Last Admin: 07/05/16 06:17 Dose: 300 mg Metoprolol Succinate (Toprol Xl -) 25 mg PO BID [facility] Last Admin: 07/05/16 10:10 Dose: 25 mg Nystatin (Nystop Powder -) 1 applic TP DAILY [facility] Last Admin: 07/05/16 10:11 Dose: 1 applic Oxycodone HCl (Roxicodone -) 2.5 mg PO Q6H PRN PRN Reason: MODERATE PAIN Last Admin: 07/04/16 19:06 Dose: 2.5 mg Polyethylene Glycol (Miralax (For Daily Use) -) 17 gm PO DAILY [facility] Last Admin: 07/05/16 10:11 Dose: 17 gm Potassium Chloride (K-Dur -) 20 meq PO BID [facility] Last Admin: 07/05/16 10:10 Dose: 20 meq Prednisone (Deltasone -) 40 mg PO DAILY [facility] Stop: 07/15/16 10:30 Last Admin: 07/05/16 10:10 Dose: 40 mg Prednisone (Deltasone -) 20 mg PO DAILY [facility] Tramadol HCl (Ultram -) 50 mg PO Q6H PRN PRN Reason: PAIN Last Admin: 07/05/16 06:16 Dose: 50 mg - Objective Vital Signs: Vital Signs Temperature 98.1 F 07/05/16 05:39 Pulse Rate 70 07/05/16 05:39 Respiratory Rate 20 07/05/16 05:39 Blood Pressure 141/73 07/05/16 05:39 O2 Sat by Pulse Oximetry (%) 94 L 07/04/16 20:49 Constitutional: Yes: Well Nourished, No Distress, Calm Eyes: Yes: WNL, Conjunctiva Clear, EOM Intact, PERRL HENT: Yes: WNL, Atraumatic, Normocephalic Neck: Yes: WNL, Supple, Trachea Midline Cardiovascular: Yes: Regular Rate and Rhythm, S1, S2. No: Bradycardia, Tachycardia, Pulse Irregular, Bruit, JVD, Gallop, Murmur, Rub, S3, S4, Varicosities Respiratory: Yes: Regular, CTA Bilaterally. No: Rales, Rhonchi, Wheezes Gastrointestinal: Yes: WNL, Normal Bowel Sounds, Soft. No: Distention, Tenderness Musculoskeletal: Yes: WNL Extremities: Yes: WNL Edema: No Peripheral Pulses WNL: Yes Peripheral Pulses: Left Doralis Pedis: 2+, Right Dorsalis Pedis: 2+ Integumentary: Yes: WNL Neurological: Yes: Alert, Oriented, Cran Nerves II-XII Intact Psychiatric: Yes: Alert, Oriented Labs: CBC, BMP 07/05/16 06:00 07/05/16 06:00 INR, PTT INR 1.66 (0.82-1.09) H 07/04/16 06:00 - ....Imaging Chest X-ray: Report Reviewed, Image Reviewed EKG: Report Reviewed, Image Reviewed Other: Report Reviewed, Image Reviewed Assessment/Plan LLE DVT- -evaluated by vascular, no new thrombus seen, likely chronic since original DVT thus not considered a failure of eliquis -plan is to cont eliquis 5mg bid CAD-s/p stent LAD 2014, CABG 2015 -resume ASA 81mg daily -Plavix stopped -cont toprol, lipitor, zetia -add SHAINA-I if no contraindication
[2016-07-05] MEDS: ASPIRIN 81 MG CHEWABLE TABLETS PO SCH (12:41)
--- NOTE | 2016-07-05 12:54 | PN ---
Progress Note (short form) - Note Progress Note: ID Consult dictated Polyarticular arthritis, fever Probable acute flare, gouty arthritis Doubt septic arthritis Await synovial fluid analysis Observe off antibiotics Obtain ESR CRP GRABIEL RF Treat for gout
--- NOTE | 2016-07-05 13:26 | CONS ---
DATE OF CONSULTATION: DATE OF DICTATION: 07/05/2016 HISTORY OF PRESENT ILLNESS: The patient is a 65-year-old female, history of stroke, history of gouty arthritis in the past, now evaluated for fever. The patient had presented to the hospital on July 03, 2016, with a several-day history of left ankle pain. The pain became progressively worse to the point where she was unable to ambulate. She denied any traumatic injury. She presented to the hospital, where a Doppler exam was performed and was positive for DVT. This, however, was felt to be old. She was seen in consultation by Vascular Surgery. She subsequently developed pain and swelling of the left wrist and the knees bilaterally. She was seen in consultation by Rheumatology and felt possibly to have a flare of gouty arthritis. Her uric acid was elevated at 7.7. An arthrocentesis was performed and Depo-Medrol injection given. She was started on Indocin. At the present time, she feels much better. She reports significant improvement in the left ankle pain and bilateral knee pains. She did have an elevated temperature of 101.1. She denies any shaking chills. As noted, she denied any traumatic injury to the left lower extremity. She reports having a flare of gouty arthritis in the past after her stroke. PAST MEDICAL HISTORY: Positive for stroke with left hemiplegia, history of DVTs, coronary artery disease, atrial fibrillation, hypertension, hyperlipidemia. PAST SURGICAL HISTORY: Status post coronary artery stent, 2014; cholecystectomy; hysterectomy; tonsillectomy; bypass surgery. ALLERGIES: PENICILLIN. MEDICATIONS: Include prednisone 40 mg daily; Tylenol; Eliquis; Neurontin; Toprol; Colace; Zetia; Lipitor; Lasix; aspirin; Ultram; K-Dur. SOCIAL HISTORY: Lives at home. She is a nonsmoker, nondrinker. SYSTEMS REVIEW: Neurologic: Positive for stroke with left hemiplegia.Cardiac: Positive for atrial fibrillation. Respiratory: Negative for cough or sputum production. Gastrointestinal: Negative for vomiting or diarrhea. Genitourinary: Negative for urinary tract infection. LABORATORY DATA: White count 10.1 with 75 neutrophils, 20 lymphocytes, 4 monocytes. Creatinine 0.7. Uric acid 7.7. Urinalysis: 1 white cell. Blood cultures: Pending. Chest x-ray: No acute infiltrate. PHYSICAL EXAMINATION: General: The patient is awake and alert, out of bed to chair, in no acute distress. Vital Signs: Temperature 98.1, T-max 101.1, blood pressure 141/73, pulse 70, regular, respiration 20 per minute. HEENT: Sclerae anicteric. Cardiac: Heart sounds S1, S2 irregular. Lungs: Clear. Abdomen: Soft, nontender. Extremities: Positive for bilateral lower extremity edema. There is left ankle swelling. No tenderness elicited. No erythema or warmth. There is bilateral knee swelling and left wrist swelling. No erythema or warmth present over the knees and left wrist. IMPRESSION: 1. Polyarticular arthritis. 2. Fever. RECOMMENDATIONS: Suspect acute flare of gouty arthritis. Doubt septic arthritis in light of polyarticular nature. Polyarticular arthritis in the setting of elevated uric acid and history of gouty arthritis suggests an acute gouty flare. Await synovial fluid analysis. Continue treatment for gout. Observe off antibiotic therapy. Thank you for the kind referral. KIMBERLEY ELLSWORTH M.D. [id number]
[2016-07-05] MEDS: RANITIDINE HCL 150 MG TABLET (FP) PO SCH ×2 (15:53→21:10)
--- NOTE | 2016-07-05 17:26 | PN ---
Progress Note (short form) - Note Progress Note: she is much better less pain and redness good appetite Vital Signs Period Temp Pulse Resp BP Sys/Clark Pulse Ox Last 24 Hr 97.8 F-98.8 F 70-79 20-20 120-155/56-73 94 CBC, BMP 07/05/16 06:00 07/05/16 06:00 Heent nad neck supple lungs clear heart no change ext less edema ap pt is improving continue prednisone add pepcid for her gi protection
[2016-07-05] MEDS: ATORVASTATIN CA 80 MG TABLET (FP) PO SCH (21:09)
[2016-07-06] MEDS: oxyCODONE HCL 5 MG TABLET PO PRN ×2 (01:53→13:57)
[2016-07-06] MEDS: FUROSEMIDE 40 MG TABLET (FP) PO SCH ×2 (06:07→13:58)
[2016-07-06] MEDS: GABAPENTIN 300 MG CAPSULE (FP) PO SCH ×3 (06:07→21:30)
[2016-07-06 07:39] LABS: MCH 26.1 pg (25.7-33.7); MCHC 32.5 g/dl (32.0-36.0); MEAN CELL VOLUME 80.1 fl (80-96); MEAN PLT VOLUME 9.7 fl (7.5-11.1); PLATELET COUNT 234 K/MM3 (134-434); RDW 16.4 % (11.6-15.6); WHITE BLOOD COUNT 10.4 K/mm3 (4.0-10.0)
[2016-07-06] MEDS ORDERED: PT OWN MED DRAWER 7, Y5N ONE (10:50)
[2016-07-06] MEDS: APIXABAN 5 MG TABLET PO SCH ×2 (10:59→21:30)
[2016-07-06] MEDS: ASPIRIN 81 MG CHEWABLE TABLETS PO SCH (10:59)
[2016-07-06] MEDS: predniSONE 20 MG TABLET (UD) PO SCH (10:59)
[2016-07-06] MEDS: METOPROLOL SUCCINATE 25 MG TAB.SR.24H (FP) PO SCH ×2 (10:59→21:30)
[2016-07-06] MEDS: DOCUSATE SODIUM 100 MG CAPSULE (FP) PO SCH (10:59)
[2016-07-06] MEDS: POTASSIUM CHLORIDE TABS 20 MEQ TABLET.ER (FP) PO SCH ×2 (10:59→21:30)
[2016-07-06] MEDS: EZETIMIBE 10 MG TABLET (FP) PO SCH (10:59)
[2016-07-06] MEDS: RANITIDINE HCL 150 MG TABLET (FP) PO SCH ×2 (11:00→21:31)
[2016-07-06] MEDS: NYSTATIN POWDER 100,000 UNITS/GM - 15 GM TOPICAL POWDER TP SCH (11:00)
[2016-07-06] MEDS: POLYETHYLENE GLYCOL 3350 119 GM BTL PO SCH (11:00)
[2016-07-06] MEDS: traMADol HCL 50 MG TABLET PO PRN (11:00)
--- NOTE | 2016-07-06 11:33 | PN ---
Progress Note (short form) - Note Progress Note: she is much better less pain and redness good appetite CBC, BMP 07/06/16 06:00 07/05/16 06:00 Vital Signs Period Temp Pulse Resp BP Sys/Clark Pulse Ox Last 24 Hr 97.6 F-98.5 F 66-73 17-20 114-145/60-77 neck supple lungs clear heart no change ext less edema ap pt is improving continue prednisone add pepcid for her gi protection
--- NOTE | 2016-07-06 16:26 | PN ---
Progress Note, Physician History of Present Illness: Reports mild discomfort L ankle; no R wrist or knee pain No recurrent fever No c/o dysuria - Current Medication List Current Medications: Active Medications Acetaminophen (Tylenol -) 650 mg PO Q4H PRN PRN Reason: FEVER Last Admin: 07/04/16 14:15 Dose: 650 mg Albuterol Sulfate (Ventolin 0.083% Nebulizer Soln -) 1 amp NEB Q6H PRN PRN Reason: SHORT OF BREATH/WHEEZING Apixaban (Eliquis -) 5 mg PO BID [facility] Last Admin: 07/06/16 10:59 Dose: 5 mg Aspirin (Asa -) 81 mg PO DAILY [facility] Last Admin: 07/06/16 10:59 Dose: 81 mg Atorvastatin Calcium (Lipitor -) 80 mg PO HS [facility] Last Admin: 07/05/16 21:09 Dose: 80 mg Docusate Sodium (Colace -) 200 mg PO DAILY [facility] Last Admin: 07/06/16 10:59 Dose: 200 mg Ezetimibe (Zetia -) 10 mg PO DAILY [facility] Last Admin: 07/06/16 10:59 Dose: 10 mg Furosemide (Lasix -) 40 mg PO BID@0600,1400 [facility] Last Admin: 07/06/16 13:58 Dose: 40 mg Gabapentin (Neurontin -) 300 mg PO TID [facility] Last Admin: 07/06/16 13:57 Dose: 300 mg Metoprolol Succinate (Toprol Xl -) 25 mg PO BID [facility] Last Admin: 07/06/16 10:59 Dose: 25 mg Nystatin (Nystop Powder -) 1 applic TP DAILY [facility] Last Admin: 07/06/16 11:00 Dose: 1 applic Oxycodone HCl (Roxicodone -) 2.5 mg PO Q6H PRN PRN Reason: MODERATE PAIN Last Admin: 07/06/16 13:57 Dose: 2.5 mg Polyethylene Glycol (Miralax (For Daily Use) -) 17 gm PO DAILY [facility] Last Admin: 07/06/16 11:00 Dose: Not Given Potassium Chloride (K-Dur -) 20 meq PO BID [facility] Last Admin: 07/06/16 10:59 Dose: 20 meq Prednisone (Deltasone -) 40 mg PO DAILY [facility] Stop: 07/15/16 10:30 Last Admin: 07/06/16 10:59 Dose: 40 mg Prednisone (Deltasone -) 20 mg PO DAILY [facility] Ranitidine HCl (Zantac -) 150 mg PO BID [facility] Last Admin: 07/06/16 11:00 Dose: 150 mg Tramadol HCl (Ultram -) 50 mg PO Q6H PRN PRN Reason: PAIN Last Admin: 07/06/16 11:00 Dose: 50 mg - Objective Vital Signs: Vital Signs Temperature 98.0 F 07/06/16 14:00 Pulse Rate 74 07/06/16 14:00 Respiratory Rate 18 07/06/16 14:00 Blood Pressure 123/58 07/06/16 14:00 O2 Sat by Pulse Oximetry (%) 94 L 07/04/16 20:49 Constitutional: Yes: No Distress Eyes: Yes: Conjunctiva Clear Cardiovascular: Yes: Regular Rate and Rhythm, S1, S2 Respiratory: Yes: CTA Bilaterally Gastrointestinal: Yes: Normal Bowel Sounds, Soft, Abdomen, Obese. No: Tenderness Extremities: Yes: Other (+ L ankle swelling No erythema/ tenderness) Edema: Yes Labs: CBC, BMP 07/06/16 06:00 07/05/16 06:00 INR, PTT INR 1.66 (0.82-1.09) H 07/04/16 06:00 Assessment/Plan Polyarticular arthritis,probable gout- improved + urine c/s = contaminant Observe off antibiotics
[2016-07-06] MEDS: ATORVASTATIN CA 80 MG TABLET (FP) PO SCH (21:30)
[2016-07-07] MEDS: oxyCODONE HCL 5 MG TABLET PO PRN ×3 (03:15→22:23)
[2016-07-07] MEDS: FUROSEMIDE 40 MG TABLET (FP) PO SCH ×2 (06:06→14:25)
[2016-07-07] MEDS: GABAPENTIN 300 MG CAPSULE (FP) PO SCH ×3 (06:06→22:19)
[2016-07-07 08:14] LABS: MCH 25.9 pg (25.7-33.7); MEAN PLT VOLUME 9.8 fl (7.5-11.1); PLATELET COUNT 246 K/MM3 (134-434); RDW 17.2 % (11.6-15.6); WHITE BLOOD COUNT 9.6 K/mm3 (4.0-10.0)
--- NOTE | 2016-07-07 09:45 | PN ---
Progress Note (short form) - Note Progress Note: Vital Signs Period Temp Pulse Resp BP Sys/Clark Pulse Ox Last 24 Hr 97.5 F-98.2 F 58-74 17-18 123-137/58-69 97 CBC, BMP 07/07/16 06:30 07/05/16 06:00 S1S2 RRR Lungs cta abd soft NT ankle swelling, right wrist swelling and pain much improved but still present old left hemiparesis Imp old left leg DVT gouty arthropathy LLE DVT, PE/thrombectomy PFO closure 1 vessel CABG 11.2015 Obesity HTN Plan consults appreciated back on eliquis on prednisone for gout physical therapy dc planning likely to STR Problem List - Problems (1) Left leg DVT Code(s): I82.402 - ACUTE EMBOLISM AND THOMBOS UNSP DEEP VEINS OF L LOW EXTREM Qualifiers: Affected thrombotic vein of extremity: femoral Chronicity: chronic Qualified Code(s): I82.512 - Chronic embolism and thrombosis of left femoral vein (2) CAD (coronary artery disease), [place] coronary artery Code(s): I25.10 - ATHSCL HEART DISEASE OF [place] CORONARY ARTERY W/O ANG PCTRS Qualifiers: [place] vs. transplanted heart: [place] heart (3) HTN (hypertension) Code(s): I10 - ESSENTIAL (PRIMARY) HYPERTENSION Qualifiers: Hypertension type: essential hypertension Qualified Code(s): I10 - Essential (primary) hypertension (4) Hyperlipidemia Code(s): E78.5 - HYPERLIPIDEMIA, UNSPECIFIED Qualifiers: Hyperlipidemia type: unspecified Qualified Code(s): E78.5 - Hyperlipidemia, unspecified (5) Stroke Code(s): I63.9 - CEREBRAL INFARCTION, UNSPECIFIED Qualifiers: CVA mechanism: occlusion Precerebral and cerebral artery: vertebral artery Laterality of affected vessel: right Qualified Code(s): I63.211 - Cerebral infarction due to unspecified occlusion or stenosis of right vertebral arteries
[2016-07-07] MEDS ORDERED: PT OWN MED DRAWER 7, Y5N ONE ×2 (10:03→21:41)
[2016-07-07] MEDS: ASPIRIN 81 MG CHEWABLE TABLETS PO SCH (10:10)
[2016-07-07] MEDS: predniSONE 20 MG TABLET (UD) PO SCH (10:11)
[2016-07-07] MEDS: DOCUSATE SODIUM 100 MG CAPSULE (FP) PO SCH (10:11)
[2016-07-07] MEDS: POTASSIUM CHLORIDE TABS 20 MEQ TABLET.ER (FP) PO SCH ×2 (10:12→22:19)
[2016-07-07] MEDS: APIXABAN 5 MG TABLET PO SCH ×2 (10:12→22:14)
[2016-07-07] MEDS: NYSTATIN POWDER 100,000 UNITS/GM - 15 GM TOPICAL POWDER TP SCH (10:13)
[2016-07-07] MEDS: METOPROLOL SUCCINATE 25 MG TAB.SR.24H (FP) PO SCH ×2 (10:13→22:19)
[2016-07-07] MEDS: POLYETHYLENE GLYCOL 3350 119 GM BTL PO SCH (10:13)
[2016-07-07] MEDS: RANITIDINE HCL 150 MG TABLET (FP) PO SCH ×2 (10:14→22:19)
[2016-07-07] MEDS: EZETIMIBE 10 MG TABLET (FP) PO SCH (10:14)
--- NOTE | 2016-07-07 13:03 | PN ---
Progress Note, Physician History of Present Illness: The patient is a 65 year old female with significant past medical history of CVA with left-sided residual weakness, DVTs (on eliquis and lasix), CAD s/p card cath and stent placement 2014, hypertension, and hyperlipidemia who presents to the ED with 1 day of left ankle pain and swelling. Patient reports she is able to ambulate with cane, however, yesterday she was unable to ambulate secondary to moderate left ankle swelling and pain. She states she is unable to bear weight on her left leg. Denies trauma to the area or any recent falls. The patient denies fever, chills, cough, SOB, chest pain, and palpitations. The patient denies abdominal pain, nausea, vomiting, and diarrhea. Allergies: penicillin, hydromorphone HCl Social History: No alcohol, tobacco, or drug use reported. Past Surgical History: Cholecystectomy, Hysterectomy, Tonsillectomy PCP: Dr. Emily Cole - Current Medication List Current Medications: Active Medications Acetaminophen (Tylenol -) 650 mg PO Q4H PRN PRN Reason: FEVER Last Admin: 07/04/16 14:15 Dose: 650 mg Albuterol Sulfate (Ventolin 0.083% Nebulizer Soln -) 1 amp NEB Q6H PRN PRN Reason: SHORT OF BREATH/WHEEZING Apixaban (Eliquis -) 5 mg PO BID [facility] Last Admin: 07/07/16 10:12 Dose: 5 mg Aspirin (Asa -) 81 mg PO DAILY [facility] Last Admin: 07/07/16 10:10 Dose: 81 mg Atorvastatin Calcium (Lipitor -) 80 mg PO HS [facility] Last Admin: 07/06/16 21:30 Dose: 80 mg Docusate Sodium (Colace -) 200 mg PO DAILY [facility] Last Admin: 07/07/16 10:11 Dose: 200 mg Ezetimibe (Zetia -) 10 mg PO DAILY [facility] Last Admin: 07/07/16 10:14 Dose: 10 mg Furosemide (Lasix -) 40 mg PO BID@0600,1400 [facility] Last Admin: 07/07/16 06:06 Dose: 40 mg Gabapentin (Neurontin -) 300 mg PO TID [facility] Last Admin: 07/07/16 06:06 Dose: 300 mg Metoprolol Succinate (Toprol Xl -) 25 mg PO BID [facility] Last Admin: 07/07/16 10:13 Dose: 25 mg Nystatin (Nystop Powder -) 1 applic TP DAILY [facility] Last Admin: 07/07/16 10:13 Dose: 1 applic Oxycodone HCl (Roxicodone -) 2.5 mg PO Q6H PRN PRN Reason: MODERATE PAIN Last Admin: 07/07/16 11:06 Dose: 2.5 mg Polyethylene Glycol (Miralax (For Daily Use) -) 17 gm PO DAILY [facility] Last Admin: 07/07/16 10:13 Dose: Not Given Potassium Chloride (K-Dur -) 20 meq PO BID [facility] Last Admin: 07/07/16 10:12 Dose: 20 meq Prednisone (Deltasone -) 40 mg PO DAILY [facility] Stop: 07/15/16 10:30 Last Admin: 07/07/16 10:11 Dose: 40 mg Prednisone (Deltasone -) 20 mg PO DAILY [facility] Ranitidine HCl (Zantac -) 150 mg PO BID [facility] Last Admin: 07/07/16 10:14 Dose: 150 mg Tramadol HCl (Ultram -) 50 mg PO Q6H PRN PRN Reason: PAIN Last Admin: 07/06/16 11:00 Dose: 50 mg - Objective Vital Signs: Vital Signs Temperature 97.5 F L 07/07/16 05:42 Pulse Rate 58 L 07/07/16 05:42 Respiratory Rate 18 07/07/16 05:42 Blood Pressure 136/64 07/07/16 05:42 O2 Sat by Pulse Oximetry (%) 97 07/06/16 20:20 Eyes: Yes: WNL, Conjunctiva Clear, EOM Intact HENT: Yes: WNL, Atraumatic, Normocephalic Neck: Yes: WNL, Supple, Trachea Midline Cardiovascular: Yes: WNL, Regular Rate and Rhythm Respiratory: Yes: WNL, Regular, CTA Bilaterally Gastrointestinal: Yes: WNL, Normal Bowel Sounds Genitourinary: Yes: WNL Musculoskeletal: Yes: WNL Extremities: Yes: WNL Edema: No Integumentary: Yes: WNL Neurological: Yes: WNL, Alert, Oriented ...Motor Strength: WNL Psychiatric: Yes: WNL Labs: CBC, BMP 07/07/16 06:30 07/05/16 06:00 INR, PTT INR 1.66 (0.82-1.09) H 07/04/16 06:00 Assessment/Plan LLE DVT- -evaluated by vascular, no new thrombus seen, likely chronic since original DVT thus not considered a failure of eliquis -plan is to cont eliquis 5mg bid CAD-s/p stent LAD 2014, CABG 2015 -resume ASA 81mg daily -Plavix stopped -cont toprol, lipitor, zetia -add SHAINA-I if no contraindication
[2016-07-07] MEDS: ATORVASTATIN CA 80 MG TABLET (FP) PO SCH (22:19)
[2016-07-08 06:06] LABS: RHEUMATOID ARTHRITITS FACTOR 89.9 IU/mL (0.0-13.9)
[2016-07-08] MEDS: FUROSEMIDE 40 MG TABLET (FP) PO SCH ×2 (06:41→14:52)
[2016-07-08] MEDS: GABAPENTIN 300 MG CAPSULE (FP) PO SCH ×3 (06:41→23:24)
--- NOTE | 2016-07-08 07:02 | DS ---
Physical Examination Vital Signs: Vital Signs Temperature 97.9 F 07/08/16 06:00 Pulse Rate 68 07/08/16 06:00 Respiratory Rate 20 07/08/16 06:00 Blood Pressure 119/58 07/08/16 06:00 O2 Sat by Pulse Oximetry (%) 98 07/07/16 21:00 Constitutional: Yes: No Distress, Calm, Obese Eyes: Yes: EOM Intact HENT: Yes: Normocephalic Neck: Yes: Trachea Midline Cardiovascular: Yes: Regular Rate and Rhythm Respiratory: Yes: CTA Bilaterally Gastrointestinal: Yes: Normal Bowel Sounds, Soft Musculoskeletal: Yes: Joint Swelling Edema: Yes Edema: LLE: Trace, RLE: Trace Peripheral Pulses WNL: Yes Neurological: Yes: Other (chronci left hemiparesis) Psychiatric: Yes: WNL Labs: CBC, BMP 07/07/16 06:30 07/05/16 06:00 Discharge Summary Reason For Visit: DEEP VEIN THOMBOSIS (DVT)OF LEFT LOWER EXTREMITY Current Active Problems Arthritis (Acute) Left leg DVT (Acute) Obesity (Acute) Polyarticular arthritis (Acute) Hospital Course: Admitted for acutely worsening left ankle pain and swelling. US LLE showed chronic DVT. Seen by rheumatology and was started on oral prednisone for polyarticular arthritis. Feels better, with less pain, but still requires assist in ambulation and ADL. Medically stable to dc to SNF when bed available. Condition: Fair - Instructions Diet, Activity, Other Instructions: diabetic diet, BGM twice daily while on steroids. start tapering prednisone on 3. 17. f/up with for rheumatology Referrals: Emily Cole MD [Primary Care Provider] - Disposition: [facility] - Home Medications Comprehensive Discharge Medication List: Ambulatory Orders Atorvastatin Ca [Lipitor] 80 mg PO HS 02/24/16 Docusate Sodium [Colace -] 200 mg PO DAILY 02/24/16 Gabapentin [Neurontin -] 300 mg PO Q8H 02/24/16 Metoprolol Succinate [Toprol Xl] 25 mg PO BID 02/24/16 Acetaminophen [Tylenol .Regular Strength -] 650 mg PO Q4H PRN #0 tablet Albuterol 0.083% Nebulizer Valarie [Ventolin 0.083% Nebulizer Soln -] 1 amp NEB Q6H PRN #0 amp 07/08/16 Apixaban [Eliquis -] 5 mg PO BID tablet 07/08/16 Aspirin [ASA -] 81 mg PO DAILY tab.chew 07/08/16 Ezetimibe [Zetia -] 10 mg PO DAILY tablet 07/08/16 Furosemide [Lasix -] 40 mg PO BID@0600,1400 tablet 07/08/16 Nystatin Powder [Nystop Powder -] 1 applic TP DAILY applic 07/08/16 Oxycodone HCl [Roxicodone -] 2.5 mg PO Q6H PRN #0 tablet MDD 4 tabs 07/08/16 Polyethylene Glycol 3350 [Miralax 119 gm Btl -] 17 gm PO DAILY bottle 07/08/16 Potassium Chloride [K-Dur -] 20 meq PO BID 07/08/16 Prednisone [Deltasone -] 40 mg PO DAILY tablet 07/08/16 Ranitidine [Zantac -] 150 mg PO BID tablet 07/08/16 Tramadol HCl [Ultram -] 50 mg PO Q6H PRN #0 tablet MDD 200mg 07/08/16
[2016-07-08 08:08] LABS: MCH 26.4 pg (25.7-33.7); MCHC 32.6 g/dl (32.0-36.0); MEAN CELL VOLUME 80.9 fl (80-96); MEAN PLT VOLUME 9.5 fl (7.5-11.1); PLATELET COUNT 257 K/MM3 (134-434); RDW 16.9 % (11.6-15.6); WHITE BLOOD COUNT 9.1 K/mm3 (4.0-10.0)
[2016-07-08] MEDS ORDERED: PT OWN MED DRAWER 7, Y5N ONE ×2 (09:43→22:05)
[2016-07-08] MEDS: ASPIRIN 81 MG CHEWABLE TABLETS PO SCH (09:44)
[2016-07-08] MEDS: APIXABAN 5 MG TABLET PO SCH ×2 (09:45→23:23)
[2016-07-08] MEDS: RANITIDINE HCL 150 MG TABLET (FP) PO SCH ×2 (09:45→23:24)
[2016-07-08] MEDS: METOPROLOL SUCCINATE 25 MG TAB.SR.24H (FP) PO SCH ×2 (09:45→23:24)
[2016-07-08] MEDS: DOCUSATE SODIUM 100 MG CAPSULE (FP) PO SCH (09:45)
[2016-07-08] MEDS: EZETIMIBE 10 MG TABLET (FP) PO SCH (09:45)
[2016-07-08] MEDS: POTASSIUM CHLORIDE TABS 20 MEQ TABLET.ER (FP) PO SCH ×2 (09:45→23:23)
[2016-07-08] MEDS: POLYETHYLENE GLYCOL 3350 119 GM BTL PO SCH (09:48)
[2016-07-08] MEDS: predniSONE 20 MG TABLET (UD) PO SCH (09:52)
--- NOTE | 2016-07-08 10:54 | PN ---
Progress Note, Physician Chief Complaint: Pt A&Ox3; ambulating slowly with assistance from rehabilitation therapist and walker; no chest pain. History of Present Illness: The patient is a 65 year old black female (b. Carolyn) with significant past medical history of CVA 2016 with left-sided residual weakness, DVTs (on eliquis and lasix), CAD s/p card cath and stent placement 2014, hypertension, and hyperlipidemia who presents to the ED with 1 day of left ankle pain and swelling. Patient reports she is able to ambulate with cane, however, yesterday she was unable to ambulate secondary to moderate left ankle swelling and pain. She states she is unable to bear weight on her left leg. Denies trauma to the area or any recent falls. The patient denies fever, chills, cough, SOB, chest pain, and palpitations. The patient denies abdominal pain, nausea, vomiting, and diarrhea. Allergies: penicillin, hydromorphone HCl Social History: No alcohol, tobacco, or drug use reported. Past Surgical History: Cholecystectomy, Hysterectomy, Tonsillectomy PCP: Dr. Emily Cole Supervisor Molding: Dr. Billy - Current Medication List Current Medications: Active Medications Acetaminophen (Tylenol -) 650 mg PO Q4H PRN PRN Reason: FEVER Last Admin: 07/04/16 14:15 Dose: 650 mg Albuterol Sulfate (Ventolin 0.083% Nebulizer Soln -) 1 amp NEB Q6H PRN PRN Reason: SHORT OF BREATH/WHEEZING Last Admin: 07/08/16 10:28 Dose: 1 amp Apixaban (Eliquis -) 5 mg PO BID [facility] Last Admin: 07/08/16 09:45 Dose: 5 mg Aspirin (Asa -) 81 mg PO DAILY [facility] Last Admin: 07/08/16 09:44 Dose: 81 mg Atorvastatin Calcium (Lipitor -) 80 mg PO HS [facility] Last Admin: 07/07/16 22:19 Dose: 80 mg Docusate Sodium (Colace -) 200 mg PO DAILY [facility] Last Admin: 07/08/16 09:45 Dose: 200 mg Ezetimibe (Zetia -) 10 mg PO DAILY [facility] Last Admin: 07/08/16 09:45 Dose: 10 mg Furosemide (Lasix -) 40 mg PO BID@0600,1400 [facility] Last Admin: 07/08/16 06:41 Dose: 40 mg Gabapentin (Neurontin -) 300 mg PO TID [facility] Last Admin: 07/08/16 06:41 Dose: 300 mg Metoprolol Succinate (Toprol Xl -) 25 mg PO BID [facility] Last Admin: 07/08/16 09:45 Dose: 25 mg Nystatin (Nystop Powder -) 1 applic TP DAILY [facility] Last Admin: 07/07/16 10:13 Dose: 1 applic Oxycodone HCl (Roxicodone -) 2.5 mg PO Q6H PRN PRN Reason: MODERATE PAIN Last Admin: 07/07/16 22:23 Dose: 2.5 mg Polyethylene Glycol (Miralax (For Daily Use) -) 17 gm PO DAILY [facility] Last Admin: 07/08/16 09:48 Dose: Not Given Potassium Chloride (K-Dur -) 20 meq PO BID [facility] Last Admin: 07/08/16 09:45 Dose: 20 meq Prednisone (Deltasone -) 40 mg PO DAILY [facility] Stop: 07/15/16 10:30 Last Admin: 07/08/16 09:52 Dose: 40 mg Prednisone (Deltasone -) 20 mg PO DAILY [facility] Ranitidine HCl (Zantac -) 150 mg PO BID [facility] Last Admin: 07/08/16 09:45 Dose: 150 mg Tramadol HCl (Ultram -) 50 mg PO Q6H PRN PRN Reason: PAIN Last Admin: 07/06/16 11:00 Dose: 50 mg - Objective Vital Signs: Vital Signs Temperature 97.9 F 07/08/16 06:00 Pulse Rate 68 07/08/16 06:00 Respiratory Rate 20 07/08/16 06:00 Blood Pressure 119/58 07/08/16 06:00 O2 Sat by Pulse Oximetry (%) 98 07/07/16 21:00 Constitutional: Yes: Obese Eyes: Yes: WNL HENT: Yes: WNL Neck: Yes: WNL Cardiovascular: Yes: Regular Rate and Rhythm Respiratory: Yes: Regular Gastrointestinal: Yes: Soft, Abdomen, Obese ...Rectal Exam: Yes: Deferred Genitourinary: No: Anuria Breast(s): Yes: WNL Musculoskeletal: Yes: Joint Stiffness Extremities: Yes: Cool Edema: No Peripheral Pulses WNL: No Peripheral Pulses: Left Doralis Pedis: 1+, Right Dorsalis Pedis: 1+ Integumentary: Yes: WNL Neurological: Yes: Alert, Oriented Psychiatric: Yes: Alert, Oriented Labs: CBC, BMP 07/08/16 06:00 07/05/16 06:00 INR, PTT INR 1.66 (0.82-1.09) H 07/04/16 06:00 Problem List - Problems (1) Left leg DVT Assessment/Plan: Reords obtained from [facility] note 02/2017 US of lower extremities, with conclusion of DVT with occluded left femoral-->popliteal artery. This is in the same area as today's US, and was discussed with Dr. Bell, radiologist who read today's report. 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 Recommend continuing apixaban 5 mg bid and ASA 81 mg daily. Now off clopidogrel. If possible, avoid non-aspirin NSAIDs due to cardiac risks, effect on BP. 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 Weight loss would be of benefit. 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 Code(s): I10 - ESSENTIAL (PRIMARY) HYPERTENSION Qualifiers: Hypertension type: essential hypertension Qualified Code(s): I10 - Essential (primary) hypertension (5) Hyperlipidemia Code(s): E78.5 - HYPERLIPIDEMIA, UNSPECIFIED Qualifiers: Hyperlipidemia type: unspecified Qualified Code(s): E78.5 - Hyperlipidemia, unspecified (6) Stroke Code(s): I63.9 - CEREBRAL INFARCTION, UNSPECIFIED Qualifiers: CVA mechanism: occlusion Precerebral and cerebral artery: vertebral artery Laterality of affected vessel: right Qualified Code(s): I63.211 - Cerebral infarction due to unspecified occlusion or stenosis of right vertebral arteries (7) Obesity Code(s): E66.9 - OBESITY, UNSPECIFIED (8) Arthritis Assessment/Plan: mutliple sites of pain, decreased ROM, swelling. F/u with field observer. If possible, avoid non-steroidal NSAIDS (increased risk of bleeding, as pt is already on ASA and apixaban; increased cardiac risks; adverse effects on BP). Code(s): M19.90 - UNSPECIFIED OSTEOARTHRITIS, UNSPECIFIED SITE (9) Hypothyroid Assessment/Plan: elevated TSH; f/u free T4 and T3. Code(s): E03.9 - HYPOTHYROIDISM, UNSPECIFIED
[2016-07-08] MEDS: oxyCODONE HCL 5 MG TABLET PO PRN ×2 (11:26→23:25)
[2016-07-08] MEDS: NYSTATIN POWDER 100,000 UNITS/GM - 15 GM TOPICAL POWDER TP SCH (11:26)
[2016-07-08] MEDS: ATORVASTATIN CA 80 MG TABLET (FP) PO SCH (23:24)
[2016-07-09] MEDS: GABAPENTIN 300 MG CAPSULE (FP) PO SCH ×3 (06:03→21:05)
[2016-07-09] MEDS: FUROSEMIDE 40 MG TABLET (FP) PO SCH ×2 (06:04→14:16)
[2016-07-09 07:37] LABS: MCH 26.1 pg (25.7-33.7); MCHC 32.5 g/dl (32.0-36.0); MEAN CELL VOLUME 80.4 fl (80-96); MEAN PLT VOLUME 8.9 fl (7.5-11.1); PLATELET COUNT 273 K/MM3 (134-434); RDW 17.1 % (11.6-15.6); WHITE BLOOD COUNT 10.5 K/mm3 (4.0-10.0)
--- NOTE | 2016-07-09 09:02 | PN ---
Progress Note (short form) - Note Progress Note: Vital Signs Period Temp Pulse Resp BP Sys/Clark Pulse Ox Last 24 Hr 98.0 F-98.3 F 57-75 18-20 112-123/58-67 100 S1S2 RRR Lungs cta abd soft NT ankle swelling, right wrist swelling and pain much improved old left hemiparesis Imp old left leg DVT oligoarticular arthropathy LLE DVT, PE/thrombectomy PFO closure 1 vessel CABG .2015 Obesity HTN Plan prednisone taper physical therapy dc planning likely to STR Problem List - Problems (1) Left leg DVT Code(s): I82.402 - ACUTE EMBOLISM AND THOMBOS UNSP DEEP VEINS OF L LOW EXTREM Qualifiers: Affected thrombotic vein of extremity: femoral Chronicity: chronic Qualified Code(s): I82.512 - Chronic embolism and thrombosis of left femoral vein (2) CAD (coronary artery disease), [place] coronary artery Code(s): I25.10 - ATHSCL HEART DISEASE OF [place] CORONARY ARTERY W/O ANG PCTRS Qualifiers: [place] vs. transplanted heart: [place] heart (3) HTN (hypertension) Code(s): I10 - ESSENTIAL (PRIMARY) HYPERTENSION Qualifiers: Hypertension type: essential hypertension Qualified Code(s): I10 - Essential (primary) hypertension (4) Hyperlipidemia Code(s): E78.5 - HYPERLIPIDEMIA, UNSPECIFIED Qualifiers: Hyperlipidemia type: unspecified Qualified Code(s): E78.5 - Hyperlipidemia, unspecified (5) Stroke Code(s): I63.9 - CEREBRAL INFARCTION, UNSPECIFIED Qualifiers: CVA mechanism: occlusion Precerebral and cerebral artery: vertebral artery Laterality of affected vessel: right Qualified Code(s): I63.211 - Cerebral infarction due to unspecified occlusion or stenosis of right vertebral arteries
[2016-07-09] MEDS ORDERED: PT OWN MED DRAWER 7, Y5N ONE (09:58)
--- NOTE | 2016-07-09 10:34 | PN ---
Progress Note, Physician History of Present Illness: The patient is a 65 year old female with significant past medical history of CVA with left-sided residual weakness, DVTs (on eliquis and lasix), CAD s/p card cath and stent placement 2014, hypertension, and hyperlipidemia who presents to the ED with 1 day of left ankle pain and swelling. Patient reports she is able to ambulate with cane, however, yesterday she was unable to ambulate secondary to moderate left ankle swelling and pain. She states she is unable to bear weight on her left leg. Denies trauma to the area or any recent falls. The patient denies fever, chills, cough, SOB, chest pain, and palpitations. The patient denies abdominal pain, nausea, vomiting, and diarrhea. Allergies: penicillin, hydromorphone HCl Social History: No alcohol, tobacco, or drug use reported. Past Surgical History: Cholecystectomy, Hysterectomy, Tonsillectomy PCP: Dr. Emily Cole - Current Medication List Current Medications: Active Medications Acetaminophen (Tylenol -) 650 mg PO Q4H PRN PRN Reason: FEVER Last Admin: 07/04/16 14:15 Dose: 650 mg Albuterol Sulfate (Ventolin 0.083% Nebulizer Soln -) 1 amp NEB Q6H PRN PRN Reason: SHORT OF BREATH/WHEEZING Last Admin: 07/08/16 10:28 Dose: 1 amp Apixaban (Eliquis -) 5 mg PO BID [facility] Last Admin: 07/08/16 23:23 Dose: 5 mg Aspirin (Asa -) 81 mg PO DAILY [facility] Last Admin: 07/08/16 09:44 Dose: 81 mg Atorvastatin Calcium (Lipitor -) 80 mg PO HS [facility] Last Admin: 07/08/16 23:24 Dose: 80 mg Docusate Sodium (Colace -) 200 mg PO DAILY [facility] Last Admin: 07/08/16 09:45 Dose: 200 mg Ezetimibe (Zetia -) 10 mg PO DAILY [facility] Last Admin: 07/08/16 09:45 Dose: 10 mg Furosemide (Lasix -) 40 mg PO BID@0600,1400 [facility] Last Admin: 07/09/16 06:04 Dose: 40 mg Gabapentin (Neurontin -) 300 mg PO TID [facility] Last Admin: 07/09/16 06:03 Dose: 300 mg Metoprolol Succinate (Toprol Xl -) 25 mg PO BID [facility] Last Admin: 07/08/16 23:24 Dose: 25 mg Nystatin (Nystop Powder -) 1 applic TP DAILY [facility] Last Admin: 07/08/16 11:26 Dose: 1 applic Oxycodone HCl (Roxicodone -) 2.5 mg PO Q6H PRN PRN Reason: MODERATE PAIN Last Admin: 07/08/16 23:25 Dose: 2.5 mg Polyethylene Glycol (Miralax (For Daily Use) -) 17 gm PO DAILY [facility] Last Admin: 07/08/16 09:48 Dose: Not Given Potassium Chloride (K-Dur -) 20 meq PO BID [facility] Last Admin: 07/08/16 23:23 Dose: 20 meq Prednisone (Deltasone -) 20 mg PO DAILY [facility] Ranitidine HCl (Zantac -) 150 mg PO BID [facility] Last Admin: 07/08/16 23:24 Dose: 150 mg Tramadol HCl (Ultram -) 50 mg PO Q6H PRN PRN Reason: PAIN Last Admin: 07/06/16 11:00 Dose: 50 mg - Objective Vital Signs: Vital Signs Temperature 97.8 F 07/09/16 09:30 Pulse Rate 65 07/09/16 09:30 Respiratory Rate 18 07/09/16 09:30 Blood Pressure 121/59 07/09/16 09:30 O2 Sat by Pulse Oximetry (%) 100 07/09/16 09:00 Eyes: Yes: WNL, Conjunctiva Clear, EOM Intact HENT: Yes: WNL, Atraumatic, Normocephalic Neck: Yes: WNL, Supple, Trachea Midline Cardiovascular: Yes: WNL, Regular Rate and Rhythm Respiratory: Yes: WNL, Regular, CTA Bilaterally Gastrointestinal: Yes: WNL, Normal Bowel Sounds Genitourinary: Yes: WNL Musculoskeletal: Yes: WNL Extremities: Yes: WNL Edema: No Integumentary: Yes: WNL Neurological: Yes: WNL, Alert, Oriented ...Motor Strength: WNL Psychiatric: Yes: WNL Labs: CBC, BMP 07/09/16 06:00 07/05/16 06:00 INR, PTT INR 1.66 (0.82-1.09) H 07/04/16 06:00 Assessment/Plan (1) Left leg DVT Assessment/Plan: Reords obtained from [facility] note 02/2017 US of lower extremities, with conclusion of DVT with occluded left femoral-->popliteal artery. This is in the same area as today's US, and was discussed with Dr. Bell, radiologist who read today's report. 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 Recommend continuing apixaban 5 mg bid and ASA 81 mg daily. Now off clopidogrel. If possible, avoid non-aspirin NSAIDs due to cardiac risks, effect on BP. 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 Weight loss would be of benefit. 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 Code(s): I10 - ESSENTIAL (PRIMARY) HYPERTENSION Qualifiers: Hypertension type: essential hypertension Qualified Code(s): I10 - Essential (primary) hypertension (5) Hyperlipidemia Code(s): E78.5 - HYPERLIPIDEMIA, UNSPECIFIED Qualifiers: Hyperlipidemia type: unspecified Qualified Code(s): E78.5 - Hyperlipidemia, unspecified (6) Stroke Code(s): I63.9 - CEREBRAL INFARCTION, UNSPECIFIED Qualifiers: CVA mechanism: occlusion Precerebral and cerebral artery: vertebral artery Laterality of affected vessel: right Qualified Code(s): I63.211 - Cerebral infarction due to unspecified occlusion or stenosis of right vertebral arteries (7) Obesity Code(s): E66.9 - OBESITY, UNSPECIFIED (8) Arthritis Assessment/Plan: mutliple sites of pain, decreased ROM, swelling. F/u with orthopedics nurse. If possible, avoid non-steroidal NSAIDS (increased risk of bleeding, as pt is already on ASA and apixaban; increased cardiac risks; adverse effects on BP). Code(s): M19.90 - UNSPECIFIED OSTEOARTHRITIS, UNSPECIFIED SITE (9) Hypothyroid Assessment/Plan: elevated TSH; f/u free T4 and T3. Code(s): E03.9 - HYPOTHYROIDISM, UNSPECIFIED
[2016-07-09] MEDS: ASPIRIN 81 MG CHEWABLE TABLETS PO SCH (10:40)
[2016-07-09] MEDS: DOCUSATE SODIUM 100 MG CAPSULE (FP) PO SCH (10:40)
[2016-07-09] MEDS: METOPROLOL SUCCINATE 25 MG TAB.SR.24H (FP) PO SCH ×2 (10:40→21:05)
[2016-07-09] MEDS: APIXABAN 5 MG TABLET PO SCH ×2 (10:40→21:04)
[2016-07-09] MEDS: EZETIMIBE 10 MG TABLET (FP) PO SCH (10:40)
[2016-07-09] MEDS: NYSTATIN POWDER 100,000 UNITS/GM - 15 GM TOPICAL POWDER TP SCH (10:41)
[2016-07-09] MEDS: predniSONE 20 MG TABLET (UD) PO SCH (10:41)
[2016-07-09] MEDS: RANITIDINE HCL 150 MG TABLET (FP) PO SCH ×2 (10:41→21:05)
[2016-07-09] MEDS: POTASSIUM CHLORIDE TABS 20 MEQ TABLET.ER (FP) PO SCH ×2 (10:41→21:05)
[2016-07-09] MEDS: POLYETHYLENE GLYCOL 3350 119 GM BTL PO SCH (10:47)
[2016-07-09] MEDS: traMADol HCL 50 MG TABLET PO PRN (20:12)
[2016-07-09] MEDS: ATORVASTATIN CA 80 MG TABLET (FP) PO SCH (21:04)
[2016-07-10] MEDS: traMADol HCL 50 MG TABLET PO PRN (05:53)
[2016-07-10] MEDS: GABAPENTIN 300 MG CAPSULE (FP) PO SCH ×3 (05:53→21:24)
[2016-07-10] MEDS: FUROSEMIDE 40 MG TABLET (FP) PO SCH ×2 (05:53→14:07)
--- NOTE | 2016-07-10 08:30 | PN ---
Progress Note (short form) - Note Progress Note: Spoke to Mai Monroe from [facility]. Roya did not recieve sufficient/any clinical information that warrants STR. If we want to continue appeal, we have to fax over more clinical/PT info until 1 pm today. att Mai Monroe Her direct number is [phone]. 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 transplanted heart: [place] heart (3) HTN (hypertension) Code(s): I10 - ESSENTIAL (PRIMARY) HYPERTENSION Qualifiers: Hypertension type: essential hypertension Qualified Code(s): I10 - Essential (primary) hypertension (4) Hyperlipidemia Code(s): E78.5 - HYPERLIPIDEMIA, UNSPECIFIED Qualifiers: Hyperlipidemia type: unspecified Qualified Code(s): E78.5 - Hyperlipidemia, unspecified (5) Stroke Code(s): I63.9 - CEREBRAL INFARCTION, UNSPECIFIED Qualifiers: CVA mechanism: occlusion Precerebral and cerebral artery: vertebral artery Laterality of affected vessel: right Qualified Code(s): I63.211 - Cerebral infarction due to unspecified occlusion or stenosis of right vertebral arteries
[2016-07-10] MEDS ORDERED: PT OWN MED DRAWER 7, Y5N ONE (09:10)
[2016-07-10] MEDS: METOPROLOL SUCCINATE 25 MG TAB.SR.24H (FP) PO SCH ×2 (09:16→21:25)
[2016-07-10] MEDS: EZETIMIBE 10 MG TABLET (FP) PO SCH (09:16)
[2016-07-10] MEDS: ASPIRIN 81 MG CHEWABLE TABLETS PO SCH (09:16)
[2016-07-10] MEDS: RANITIDINE HCL 150 MG TABLET (FP) PO SCH ×2 (09:16→21:24)
[2016-07-10] MEDS: predniSONE 20 MG TABLET (UD) PO SCH (09:16)
[2016-07-10] MEDS: NYSTATIN POWDER 100,000 UNITS/GM - 15 GM TOPICAL POWDER TP SCH (09:17)
[2016-07-10] MEDS: APIXABAN 5 MG TABLET PO SCH ×2 (09:17→21:24)
[2016-07-10] MEDS: DOCUSATE SODIUM 100 MG CAPSULE (FP) PO SCH (09:17)
[2016-07-10] MEDS: POLYETHYLENE GLYCOL 3350 119 GM BTL PO SCH (09:17)
[2016-07-10] MEDS: POTASSIUM CHLORIDE TABS 20 MEQ TABLET.ER (FP) PO SCH ×2 (09:17→21:24)
--- NOTE | 2016-07-10 11:07 | PN ---
Progress Note, Physician Chief Complaint: Pt A&Ox3; feels "100% better" than on first being admitted, except for continued pain in left foot. History of Present Illness: The patient is a 65 year old black female (b. 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 Patient reports she is able to ambulate with cane, however, yesterday she was unable to ambulate secondary to moderate left ankle swelling and pain. She states she is unable to bear weight on her left leg. Denies trauma to the area or any recent falls. The patient denies fever, chills, cough, SOB, chest pain, and palpitations. The patient denies abdominal pain, nausea, vomiting, and diarrhea. Allergies: penicillin, hydromorphone HCl Social History: No alcohol, tobacco, or drug use reported. Past Surgical History: Cholecystectomy, Hysterectomy, Tonsillectomy PCP: Dr. Emily Cole Services Program Manager: Dr. Billy - Current Medication List Current Medications: Active Medications Acetaminophen (Tylenol -) 650 mg PO Q4H PRN PRN Reason: FEVER Last Admin: 07/04/16 14:15 Dose: 650 mg Albuterol Sulfate (Ventolin 0.083% Nebulizer Soln -) 1 amp NEB Q6H PRN PRN Reason: SHORT OF BREATH/WHEEZING Last Admin: 07/08/16 10:28 Dose: 1 amp Apixaban (Eliquis -) 5 mg PO BID [facility] Last Admin: 07/10/16 09:17 Dose: 5 mg Aspirin (Asa -) 81 mg PO DAILY [facility] Last Admin: 07/10/16 09:16 Dose: 81 mg Atorvastatin Calcium (Lipitor -) 80 mg PO HS [facility] Last Admin: 07/09/16 21:04 Dose: 80 mg Docusate Sodium (Colace -) 200 mg PO DAILY [facility] Last Admin: 07/10/16 09:17 Dose: 200 mg Ezetimibe (Zetia -) 10 mg PO DAILY [facility] Last Admin: 07/10/16 09:16 Dose: 10 mg Furosemide (Lasix -) 40 mg PO BID@0600,1400 [facility] Last Admin: 07/10/16 05:53 Dose: 40 mg Gabapentin (Neurontin -) 300 mg PO TID [facility] Last Admin: 07/10/16 05:53 Dose: 300 mg Metoprolol Succinate (Toprol Xl -) 25 mg PO BID [facility] Last Admin: 07/10/16 09:16 Dose: 25 mg Nystatin (Nystop Powder -) 1 applic TP DAILY [facility] Last Admin: 07/10/16 09:17 Dose: 1 applic Polyethylene Glycol (Miralax (For Daily Use) -) 17 gm PO DAILY [facility] Last Admin: 07/10/16 09:17 Dose: Not Given Potassium Chloride (K-Dur -) 20 meq PO BID [facility] Last Admin: 07/10/16 09:17 Dose: 20 meq Prednisone (Deltasone -) 20 mg PO DAILY [facility] Last Admin: 07/10/16 09:16 Dose: 20 mg Ranitidine HCl (Zantac -) 150 mg PO BID [facility] Last Admin: 07/10/16 09:16 Dose: 150 mg - Objective Vital Signs: Vital Signs Temperature 97.7 F 07/10/16 06:00 Pulse Rate 59 L 07/10/16 06:00 Respiratory Rate 18 07/10/16 06:00 Blood Pressure 121/63 07/10/16 06:00 O2 Sat by Pulse Oximetry (%) 99 07/09/16 20:27 Constitutional: Yes: Calm Eyes: Yes: WNL HENT: Yes: WNL Neck: Yes: WNL Cardiovascular: Yes: Pulse Irregular Respiratory: Yes: WNL Gastrointestinal: Yes: Soft ...Rectal Exam: Yes: Deferred Genitourinary: No: Anuria Breast(s): Yes: WNL Musculoskeletal: Yes: Joint Stiffness, Joint Swelling, Muscle Weakness Extremities: Yes: Cool Edema: Yes Edema: LLE: Trace Peripheral Pulses WNL: Yes Integumentary: Yes: WNL Neurological: Yes: Alert, Oriented, Weakness Psychiatric: Yes: WNL Labs: CBC, BMP 07/09/16 06:00 07/05/16 06:00 INR, PTT INR 1.66 (0.82-1.09) H 07/04/16 06:00 Problem List - Problems (1) Left leg DVT Assessment/Plan: Reords obtained from [facility] note 02/2017 US of lower extremities, with summary of DVT with occluded left femoral-->popliteal artery. This is in the same area as today's US, and was discussed with Dr. Bell, radiologist who read today's report. 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 Recommend continuing apixaban 5 mg bid and ASA 81 mg daily. Now off clopidogrel. If possible, avoid non-aspirin NSAIDs due to cardiac risks, effect on BP. 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 Weight loss would be of benefit. 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 Code(s): I10 - ESSENTIAL (PRIMARY) HYPERTENSION Qualifiers: Hypertension type: essential hypertension Qualified Code(s): I10 - Essential (primary) hypertension (5) Hyperlipidemia Assessment/Plan: on statin. Added Zetia 10 mg daily. Code(s): E78.5 - HYPERLIPIDEMIA, UNSPECIFIED Qualifiers: Hyperlipidemia type: unspecified Qualified Code(s): E78.5 - Hyperlipidemia, unspecified (6) Stroke Code(s): I63.9 - CEREBRAL INFARCTION, UNSPECIFIED Qualifiers: CVA mechanism: occlusion Precerebral and cerebral artery: vertebral artery Laterality of affected vessel: right Qualified Code(s): I63.211 - Cerebral infarction due to unspecified occlusion or stenosis of right vertebral arteries (7) Obesity Code(s): E66.9 - OBESITY, UNSPECIFIED (8) Arthritis Assessment/Plan: ? RA; ? gout. mutliple sites of pain, decreased ROM, swelling. F/u with consignee. If possible, avoid non-steroidal NSAIDS (increased risk of bleeding, as pt is already on ASA and apixaban; increased cardiac risks; adverse effects on BP). Code(s): M19.90 - UNSPECIFIED OSTEOARTHRITIS, UNSPECIFIED SITE (9) Hypothyroid Assessment/Plan: elevated TSH; free T4 WNL. Code(s): E03.9 - HYPOTHYROIDISM, UNSPECIFIED
--- NOTE | 2016-07-10 11:48 | PN ---
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 old CVA with left hemiparesis old LLE DVT HTN CAD Plan STR steroid taper every 3 days patient is able to participate in one hour daily physical therapy for 5 days Problem List - Problems (1) Left leg DVT Code(s): I82.402 - ACUTE EMBOLISM AND THOMBOS UNSP DEEP VEINS OF L LOW EXTREM Qualifiers: Affected thrombotic vein of extremity: femoral Chronicity: chronic Qualified Code(s): I82.512 - Chronic embolism and thrombosis of left femoral vein (2) CAD (coronary artery disease), [place] coronary artery Code(s): I25.10 - ATHSCL HEART DISEASE OF [place] CORONARY ARTERY W/O ANG PCTRS Qualifiers: [place] vs. transplanted heart: [place] heart (3) HTN (hypertension) Code(s): I10 - ESSENTIAL (PRIMARY) HYPERTENSION Qualifiers: Hypertension type: essential hypertension Qualified Code(s): I10 - Essential (primary) hypertension (4) Hyperlipidemia Code(s): E78.5 - HYPERLIPIDEMIA, UNSPECIFIED Qualifiers: Hyperlipidemia type: unspecified Qualified Code(s): E78.5 - Hyperlipidemia, unspecified (5) Stroke Code(s): I63.9 - CEREBRAL INFARCTION, UNSPECIFIED Qualifiers: CVA mechanism: occlusion Precerebral and cerebral artery: vertebral artery Laterality of affected vessel: right Qualified Code(s): I63.211 - Cerebral infarction due to unspecified occlusion or stenosis of right vertebral arteries
--- NOTE | 2016-07-10 20:31 | PN ---
Progress Note (short form) - Note Progress Note: The patient improved significantly with steroid injection to the right ankle. Unfortunately the synovial fluid samples were lost. At the present time she is on Prednisone 20 mg daily and is feeling much better. I am aware of laboratory reports: GRABIEL 1:320 with speckled pattern and rheumatoid factor 89.9. On the physical examinationshe is not in distress. Lungs were clear. No active joints in the right hand. Impression. At this time I cannot differentiate between polyarticular gouty arthritis or early stage of sero-positive rheumatoid arthritis, I suggest to continue tapering Prednisone and follow up as outpatient. Problem List - Problems (1) Polyarticular arthritis Code(s): M13.0 - POLYARTHRITIS, UNSPECIFIED
[2016-07-10] MEDS: ATORVASTATIN CA 80 MG TABLET (FP) PO SCH (21:24)
[2016-07-10] MEDS: ACETAMINOPHEN 325 MG TABLET (FP) PO PRN (22:17)
[2016-07-11] MEDS: FUROSEMIDE 40 MG TABLET (FP) PO SCH (06:14)
[2016-07-11] MEDS: GABAPENTIN 300 MG CAPSULE (FP) PO SCH (06:14)
[2016-07-11] MEDS: ACETAMINOPHEN 325 MG TABLET (FP) PO PRN (06:26)
[2016-07-11] MEDS ORDERED: traMADol HCL 50 MG TABLET PO PRN (07:05)
[2016-07-11] MEDS ORDERED: oxyCODONE HCL 5 MG TABLET PO PRN (07:05)
--- NOTE | 2016-07-11 08:37 | DS ---
Physical Examination Vital Signs: Vital Signs Temperature 97.6 F 07/11/16 05:56 Pulse Rate 59 L 07/11/16 05:56 Respiratory Rate 20 07/11/16 05:56 Blood Pressure 118/56 07/11/16 05:56 O2 Sat by Pulse Oximetry (%) 96 07/10/16 20:07 Constitutional: Yes: No Distress, Calm Eyes: Yes: EOM Intact HENT: Yes: Normocephalic Neck: Yes: Trachea Midline Cardiovascular: Yes: Regular Rate and Rhythm Respiratory: Yes: CTA Bilaterally Edema: No Peripheral Pulses WNL: Yes Neurological: Yes: WNL Psychiatric: Yes: WNL Labs: CBC, BMP 07/09/16 06:00 07/05/16 06:00 Discharge Summary Reason For Visit: DEEP VEIN THOMBOSIS (DVT)OF LEFT LOWER EXTREMITY Current Active Problems Arthritis (Acute) Hypothyroid (Acute) Left leg DVT (Acute) Obesity (Acute) Polyarticular arthritis (Acute) Hospital Course: Admitted for severe ankle pain and swelling DVT c/w old LLE DVT, ankle was aspirated-pt received steroid injection and was satrted on oral prednisone for oligaorticular arthritis possibly gouty or rheumatic feels better, ready for STR for agressive pt Condition: Fair - Instructions Diet, Activity, Other Instructions: diabetic diet, BGM twice daily while on steroids. prednisone taper: 10 mg on 07.11, then 5 mg daily x 3 days, then stop f/up with for rheumatology Referrals: Emily Cole MD [Primary Care Provider] - Disposition: LONGTERM FACILITY - Home Medications Comprehensive Discharge Medication List: Ambulatory Orders Atorvastatin Ca [Lipitor] 80 mg PO HS 02/24/16 Docusate Sodium [Colace -] 200 mg PO DAILY 02/24/16 Gabapentin [Neurontin -] 300 mg PO Q8H 02/24/16 Acetaminophen [Tylenol .Regular Strength -] 650 mg PO Q4H PRN #0 tablet Albuterol 0.083% Nebulizer Valarie [Ventolin 0.083% Nebulizer Soln -] 1 amp NEB Q6H PRN #0 amp 07/08/16 Apixaban [Eliquis -] 5 mg PO BID tablet 07/08/16 Aspirin [ASA -] 81 mg PO DAILY tab.chew 07/08/16 Ezetimibe [Zetia -] 10 mg PO DAILY tablet 07/08/16 Furosemide [Lasix -] 40 mg PO BID@0600,1400 tablet 07/08/16 Nystatin Powder [Nystop Powder -] 1 applic TP DAILY applic 07/08/16 Oxycodone HCl [Roxicodone -] 2.5 mg PO Q6H PRN #0 tablet MDD 4 tabs 07/08/16 Polyethylene Glycol 3350 [Miralax 119 gm Btl -] 17 gm PO DAILY bottle 07/08/16 Potassium Chloride [K-Dur -] 20 meq PO BID 07/08/16 Ranitidine [Zantac -] 150 mg PO BID tablet 07/08/16 Tramadol HCl [Ultram -] 50 mg PO Q6H PRN #0 tablet MDD 200mg 07/08/16 Metoprolol Succinate [Toprol XL -] 25 mg PO BID 07/11/16 Prednisone 5 mg PO DAILY #3 tablet 07/11/16
--- NOTE | 2016-07-11 09:18 | PN ---
Progress Note, Physician Chief Complaint: Pt A&Ox3; asymptomatic. Would like to be able to walk without weakness, but is determined to continue rehabilitation. History of Present Illness: The patient is a 65 year old black female (b. 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 Patient reports she is able to ambulate with cane, however, yesterday she was unable to ambulate secondary to moderate left ankle swelling and pain. She states she is unable to bear weight on her left leg. Denies trauma to the area or any recent falls. The patient denies fever, chills, cough, SOB, chest pain, and palpitations. The patient denies abdominal pain, nausea, vomiting, and diarrhea. Allergies: penicillin, hydromorphone HCl Social History: No alcohol, tobacco, or drug use reported. Past Surgical History: Cholecystectomy, Hysterectomy, Tonsillectomy PCP: Dr. Emily Cole Data Analytics Specialist: Dr. Billy - Current Medication List Current Medications: Active Medications Acetaminophen (Tylenol -) 650 mg PO Q4H PRN PRN Reason: FEVER Last Admin: 07/11/16 06:26 Dose: 650 mg Albuterol Sulfate (Ventolin 0.083% Nebulizer Soln -) 1 amp NEB Q6H PRN PRN Reason: SHORT OF BREATH/WHEEZING Last Admin: 07/08/16 10:28 Dose: 1 amp Apixaban (Eliquis -) 5 mg PO BID [facility] Last Admin: 07/10/16 21:24 Dose: 5 mg Aspirin (Asa -) 81 mg PO DAILY [facility] Last Admin: 07/10/16 09:16 Dose: 81 mg Atorvastatin Calcium (Lipitor -) 80 mg PO HS [facility] Last Admin: 07/10/16 21:24 Dose: 80 mg Docusate Sodium (Colace -) 200 mg PO DAILY [facility] Last Admin: 07/10/16 09:17 Dose: 200 mg Ezetimibe (Zetia -) 10 mg PO DAILY [facility] Last Admin: 07/10/16 09:16 Dose: 10 mg Furosemide (Lasix -) 40 mg PO BID@0600,1400 [facility] Last Admin: 03/24/17 06:14 Dose: 40 mg Gabapentin (Neurontin -) 300 mg PO TID [facility] Last Admin: 07/11/16 06:14 Dose: 300 mg Metoprolol Succinate (Toprol Xl -) 25 mg PO BID [facility] Last Admin: 07/10/16 21:25 Dose: 25 mg Nystatin (Nystop Powder -) 1 applic TP DAILY [facility] Last Admin: 07/10/16 09:17 Dose: 1 applic Oxycodone HCl (Roxicodone -) 2.5 mg PO Q6H PRN PRN Reason: PAIN Polyethylene Glycol (Miralax (For Daily Use) -) 17 gm PO DAILY [facility] Last Admin: 07/10/16 09:17 Dose: Not Given Potassium Chloride (K-Dur -) 20 meq PO BID [facility] Last Admin: 07/10/16 21:24 Dose: 20 meq Prednisone (Deltasone -) 20 mg PO ONCE ONE Stop: 07/11/16 10:01 Prednisone (Deltasone -) 10 mg PO DAILY [facility] Ranitidine HCl (Zantac -) 150 mg PO BID [facility] Last Admin: 07/10/16 21:24 Dose: 150 mg Tramadol HCl (Ultram -) 50 mg PO Q6H PRN PRN Reason: PAIN - Objective Vital Signs: Vital Signs Temperature 97.6 F 07/11/16 05:56 Pulse Rate 59 L 07/11/16 05:56 Respiratory Rate 20 07/11/16 05:56 Blood Pressure 118/56 07/11/16 05:56 O2 Sat by Pulse Oximetry (%) 96 07/10/16 20:07 Constitutional: Yes: Calm Eyes: Yes: WNL HENT: Yes: WNL Neck: Yes: WNL Cardiovascular: Yes: Regular Rate and Rhythm Respiratory: Yes: WNL, Diminished Gastrointestinal: Yes: Soft ...Rectal Exam: Yes: Deferred Genitourinary: No: Anuria Breast(s): Yes: WNL Musculoskeletal: Yes: Joint Stiffness, Muscle Weakness Extremities: Yes: Cool Edema: No Peripheral Pulses WNL: No Peripheral Pulses: Left Doralis Pedis: 1+, Right Dorsalis Pedis: 1+ Integumentary: Yes: WNL Neurological: Yes: Alert, Oriented, Weakness Psychiatric: Yes: Alert, Oriented Labs: CBC, BMP 07/09/16 06:00 07/05/16 06:00 INR, PTT INR 1.66 (0.82-1.09) H 07/04/16 06:00 Problem List - Problems (1) Left leg DVT Assessment/Plan: Reords obtained from [facility] note 02/2017 US of lower extremities, with summary of DVT with occluded left femoral-->popliteal artery. This is in the same area as today's US, and was discussed with Dr. Bell, radiologist who read today's report. 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 Recommend continuing apixaban 5 mg bid and ASA 81 mg daily. Now off clopidogrel. If possible, avoid non-aspirin NSAIDs due to cardiac risks, effect on BP. 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 Weight loss would be of benefit. 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 Code(s): I10 - ESSENTIAL (PRIMARY) HYPERTENSION Qualifiers: Hypertension type: essential hypertension Qualified Code(s): I10 - Essential (primary) hypertension (5) Hyperlipidemia Assessment/Plan: on statin. Added Zetia 10 mg daily. Code(s): E78.5 - HYPERLIPIDEMIA, UNSPECIFIED Qualifiers: Hyperlipidemia type: unspecified Qualified Code(s): E78.5 - Hyperlipidemia, unspecified (6) Stroke Assessment/Plan: Continue present medications. Aggressive cholesterol, glucose, and BP control. Increase daily exercise. Heart-healthy diet. Code(s): I63.9 - CEREBRAL INFARCTION, UNSPECIFIED Qualifiers: CVA mechanism: occlusion Precerebral and cerebral artery: vertebral artery Laterality of affected vessel: right Qualified Code(s): I63.211 - Cerebral infarction due to unspecified occlusion or stenosis of right vertebral arteries (7) Obesity Code(s): E66.9 - OBESITY, UNSPECIFIED (8) Arthritis Assessment/Plan: ? RA; ? gout. mutliple sites of pain, decreased ROM, swelling. F/u with gelatin plant supervisor. If possible, avoid non-steroidal NSAIDS (increased risk of bleeding, as pt is already on ASA and apixaban; increased cardiac risks; adverse effects on BP). Code(s): M19.90 - UNSPECIFIED OSTEOARTHRITIS, UNSPECIFIED SITE (9) Hypothyroid Assessment/Plan: elevated TSH; free T4 WNL. Code(s): E03.9 - HYPOTHYROIDISM, UNSPECIFIED
[2016-07-11] MEDS: DOCUSATE SODIUM 100 MG CAPSULE (FP) PO SCH (10:00)
[2016-07-11] MEDS ORDERED: predniSONE 10 MG TABLET (UD) PO SCH (10:00)
[2016-07-11] MEDS: METOPROLOL SUCCINATE 25 MG TAB.SR.24H (FP) PO SCH (10:00)
[2016-07-11] MEDS: ASPIRIN 81 MG CHEWABLE TABLETS PO SCH (10:00)
[2016-07-11] MEDS: RANITIDINE HCL 150 MG TABLET (FP) PO SCH (10:00)
[2016-07-11] MEDS: POTASSIUM CHLORIDE TABS 20 MEQ TABLET.ER (FP) PO SCH (10:00)
[2016-07-11] MEDS: EZETIMIBE 10 MG TABLET (FP) PO SCH (10:00)
[2016-07-11] MEDS: NYSTATIN POWDER 100,000 UNITS/GM - 15 GM TOPICAL POWDER TP SCH (10:00)
[2016-07-11] MEDS: APIXABAN 5 MG TABLET PO SCH (10:00)
[2016-07-11] MEDS ORDERED: predniSONE 20 MG TABLET (UD) PO ONE (10:00)
[2016-07-11] MEDS: POLYETHYLENE GLYCOL 3350 119 GM BTL PO SCH (10:00)
[2016-07-11 11:04] VITALS: BP 131/64; PULSE 65; TEMP 98
[2016-07-12] MEDS ORDERED: predniSONE 10 MG TABLET (UD) PO SCH (10:00)
[2016-07-16] MEDS ORDERED: predniSONE 20 MG TABLET (UD) PO SCH (10:00)
== END 2016-07-11 14:08 | DRG 554 ==
LOC: JER 00:10 → JERBED 01:59 → J7W 05:09
PROVIDERS: ADMIT Internal Medicine; ATTEND Internal Medicine
PROC: 0S9G3ZX Drainage of Left Ankle Joint, Percutaneous Approach, Diagnostic (ICD-10-PCS; principal; 2016-07-04)
DX: M13.0 Polyarthritis, unspecified (principal); I82.512 Chronic embolism and thrombosis of left femoral vein; I69.354 Hemiplegia and hemiparesis following cerebral infarction affecting left non-dominant side; Z68.42 Body mass index [BMI] 45.0-49.9, adult; I10 Essential (primary) hypertension; E78.5 Hyperlipidemia, unspecified; I25.10 Atherosclerotic heart disease of native coronary artery without angina pectoris; I48.91 Unspecified atrial fibrillation; K44.9 Diaphragmatic hernia without obstruction or gangrene; E11.9 Type 2 diabetes mellitus without complications; Z88.0 Allergy status to penicillin; F41.8 Other specified anxiety disorders; M10.9 Gout, unspecified; F06.31 Mood disorder due to known physiological condition with depressive features; G47.39 Other sleep apnea; E03.9 Hypothyroidism, unspecified; M54.9 Dorsalgia, unspecified; N95.8 Other specified menopausal and perimenopausal disorders; E66.01 Morbid (severe) obesity due to excess calories; Z71.3 Dietary counseling and surveillance; Z86.711 Personal history of pulmonary embolism; Z95.1 Presence of aortocoronary bypass graft; Z95.5 Presence of coronary angioplasty implant and graft
CPT/HCPCS: 36415; 71010-TC; 73590-TC-LT; 73610-TC-LT; 73630-TC-LT; 80053; 80061; 81003; 81015; 83036; 83721; 84439; 84443; 84550; 85025; 85027; 85610; 85651; 85730; 86038; 86140; 86431; 86850; 86900; 86901; 87040; 87086; 87186; 87254; 87804; 93005; 93010; 93971-TC; 94640; 97116-GP; 97161-GP; 99283-25; J1644

== ENCOUNTER 2018-09-23 16:49 | Emergency (ER) | payer OTHER | END 2018-09-23 19:59 | disposition home or self-care (01) | LOC: JER 16:49 ==

== ENCOUNTER 2018-12-26 12:05 | Emergency (ER) | payer OTHER ==
[2018-12-26 12:47] VITALS: BMI 45.9
--- NOTE | 2018-12-26 12:59 | PDOC ---
History of Present Illness <Filiberto Grider - Last Filed: 12/26/18 16:53> - History of Present Illness Initial Comments: 12/26/18 13:23 68 y/o/f here for a mechanical fall that occurred last night. She states she had slippers on last night as she was getting into bed and went to move backwards and tripped. She hit the back of her head and her back on her dresser. She denies any loss of consciousness or dizziness when she fell. She states she recalls falling and her son helping her get back up into her bed. She has been able to walk normally after the fall. She complains of a headache, rated 7/10 that does not radiate to her neck. She also complains of burning epigastric pain, she does have a history of GERD but states this does not feel exactly like her GERD pain. She denies any history of seizures. She normally takes Tramadol for pain due to her OA and took her tramadol this morning. 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 She denies any chest pain, shortness of breath, abd pain, dysuria, hematuria, new numbness, weakness, fever, cough, or other concerns. PMHx: CVA in 2016, DVT, PE, CAD, HTN, HLD, GERD SHx: tonsillectomy, , cholecystectomy, heart surgery Social Hx: denies tobacco and alcohol use <Luz Rajput - Last Filed: 12/26/18 17:04> - General Chief Complaint: Injury Stated Complaint: FALL Time Seen by Provider: 12/26/18 12:58 Past History <Filiberto Grider - Last Filed: 12/26/18 16:53> - Past Medical History Anemia: No Asthma: Yes Cancer: No Cardiac Disorders: Yes CVA: Yes (Lt sided residual, uses walker) COPD: No CHF: No Dementia: No Diabetes: Yes GI Disorders: Yes (REFLUX.) Disorders: No HTN: Yes Hypercholesterolemia: Yes Liver Disease: No Seizures: No Thyroid Disease: No - Surgical History Abdominal Surgery: Yes Cardiac Surgery: Yes (stent placement) Cholecystectomy: Yes Lung Surgery: No Neurologic Surgery: No Orthopedic Surgery: No - Immunization History Immunization Up to Date: No - Suicide/Smoking/Psychosocial Hx Smoking Status: No Smoking History: Never smoked Have you smoked in the past 12 months: No Number of Cigarettes Smoked Daily: 0 Cigars Per Day: 0 Information on smoking cessation initiated: Yes Hx Alcohol Use: No Drug/Substance Use Hx: No Substance Use Type: None Hx Substance Use Treatment: No <PierreNick echavarriajose Jg - Last Filed: 12/26/18 17:04> - Past Medical History Allergies/Adverse Reactions: Allergies Allergy/AdvReac Type Severity Reaction Status Date / Time Penicillins Allergy Verified 09/23/18 17:00 hydromorphone HCl AdvReac Severe HALLUCINATI Verified 09/23/18 17:00 [From Dilaudid] ONS Home Medications: Ambulatory Orders Atorvastatin Ca [Lipitor] 80 mg PO HS 02/24/16 Docusate Sodium [Colace -] 200 mg PO DAILY 02/24/16 Gabapentin [Neurontin -] 300 mg PO Q8H 02/24/16 Acetaminophen [Tylenol .Regular Strength -] 650 mg PO Q4H PRN #0 tablet Albuterol 0.083% Nebulizer Valarie [Ventolin 0.083% Nebulizer Soln -] 1 amp NEB Q6H PRN #0 amp 07/08/16 Apixaban [Eliquis -] 5 mg PO BID tablet 07/08/16 Aspirin [ASA -] 81 mg PO DAILY tab.chew 07/08/16 Ezetimibe [Zetia -] 10 mg PO DAILY tablet 07/08/16 Furosemide [Lasix -] 40 mg PO BID@0600,1400 tablet 07/08/16 Potassium Chloride [K-Dur -] 20 meq PO BID 07/08/16 Ranitidine [Zantac -] 150 mg PO BID tablet 07/08/16 traMADol HCL [Ultram -] 50 mg PO Q6H PRN #0 tablet MDD 200mg 07/08/16 Metoprolol Succinate [Toprol XL -] 25 mg PO BID 07/11/16 Polyethylene Glycol 3350 [Miralax 119 gm Btl -] 17 gm PO DAILY PRN 09/23/18 Review of Systems - Review of Systems Able to Perform ROS?: Yes Constitutional: No: Chills, Fever, Weakness HEENTM: No: Nose Congestion Respiratory: No: Cough, Shortness of Breath, Wheezing Cardiac (ROS): No: Chest Pain, Lightheadedness ABD/GI: Yes: Other (epigastric burning pain). No: Diarrhea, Nausea, Vomiting : No: Dysuria, Hematuria Musculoskeletal: Yes: Back Pain Integumentary: No: Lumps Neurological: Yes: Headache. No: Numbness Endocrine: No: Excessive Sweating <Luz Rajput - Last Filed: 12/26/18 17:04> *Physical Exam - Vital Signs Last Vital Signs Temp Pulse Resp BP Pulse Ox 98 F 64 16 184/71 H 98 12/26/18 12:41 12/26/18 15:05 12/26/18 15:05 12/26/18 15:05 12/26/18 15:05 <Filiberto Grider - Last Filed: 12/26/18 16:53> - Vital Signs Last Vital Signs Temp Pulse Resp BP Pulse Ox 98 F 51 L 20 160/58 L 97 12/26/18 12:41 12/26/18 12:41 12/26/18 12:41 12/26/18 12:41 12/26/18 12:41 - Physical Exam General Appearance: Yes: Nourished, Appropriately Dressed HEENT: positive: EOMI, Normal Voice, Symmetrical, Other (no ecchymosis or swelling noted on skull. Mild tenderness to palpation over right parietal/ occipatal region) Neck: positive: Supple. negative: Tender, Decreased range of motion, Lymphadenopathy (R), Lymphadenopathy (L) Respiratory/Chest: positive: Lungs Clear, Normal Breath Sounds. negative: Accessory Muscle Use Cardiovascular: positive: Regular Rhythm, Regular Rate, S1, S2 Gastrointestinal/Abdominal: positive: Normal Bowel Sounds, Soft Musculoskeletal: positive: Other (normal passive range of motion of neck) Extremity: positive: Normal Capillary Refill Integumentary: positive: Normal Color Neurologic: positive: production finisher II-XII NML intact, Fully Oriented, Alert, Normal Mood/ Affect, Motor Strength 5/5, Finger to Nose <Luz Rajput S - Last Filed: 12/26/18 17:04> ED Treatment Course - LABORATORY CBC & Chemistry Diagram: 12/26/18 15:10 12/26/18 15:10 - ADDITIONAL ORDERS Additional order review: Laboratory Results 12/26/18 12/26/18 15:10 15:10 Sodium 141 Potassium 4.2 Chloride 105 Carbon Dioxide 31 Anion Gap 6 L BUN 14.6 Creatinine 0.7 Est GFR (CKD-EPI)AfAm 102.46 Est GFR (CKD-EPI)NonAf 88.40 Random Glucose 88 Calcium 9.4 Total Bilirubin 0.7 AST 27 ALT 23 Alkaline Phosphatase 68 Creatine Kinase 215 H Creatine Kinase Index 1.3 CK-MB (CK-2) 2.8 Troponin I < 0.02 Total Protein 8.1 Albumin 4.0 12/26/18 15:10 RBC 4.96 MCV 85.1 MCHC 32.6 RDW 14.5 MPV 9.9 - RADIOLOGY Radiology Studies Ordered: Category Date Time Status HEAD CT WITHOUT CONTRAST [CT] Stat CT Scan 12/26/18 13:17 Completed - Medications Given in the ED: ED Medications Discontinued Medications Generic Name Dose Route Start Last Admin Trade Name Freq PRN Reason Stop Dose Admin Acetaminophen 650 mg 12/26/18 14:52 12/26/18 15:09 Tylenol - PO 12/26/18 14:53 650 mg ONCE ONE Administration <Filiberto Grider - Last Filed: 12/26/18 16:53> - LABORATORY CBC & Chemistry Diagram: 12/26/18 15:10 12/26/18 15:10 <Luz Rajput - Last Filed: 12/26/18 17:04> Medical Decision Making - Medical Decision Making 12/26/18 13:35 68 y/o/f here for a mechanical fall that occurred last night. She states she had slippers on last night as she was getting into bed and went to move backwards and tripped. She hit the back of her head and her back on her dresser. She denies any loss of consciousness or dizziness when she fell. Patient is on Eliquis for a history of DVT and PE, did not take her Eliquis today. Complaints of epigastric burning pain that does not radiate. Will evaluate with CBC, CMP, Cardiac profile, EKG, CT head scan. Patient states she is comfortable, denied needing any pain medication. 12/26/18 15:12 CT reviewed by radiology, no obvious acute pathology. EKG reviewed: sinus bradycardia (56bpm) with 1st degree AV block with premature atrial complexes. No acute ischemic changes. Patient complained of headache upon return from CT and now requesting pain medication. Given Tylenol 650mg. 12/26/18 17:03 CBC, CMP, trops grossly normal. Patient feeling better. Patient discharged. <Luz Rajput - Last Filed: 12/26/18 17:04> *DC/Admit/Observation/Transfer - Discharge Dispostion Decision to Admit order: No <Filiberto Grider - Last Filed: 12/26/18 16:53> - Discharge Dispostion Decision to Admit order: No <Luz Rajput - Last Filed: 12/26/18 17:04> Diagnosis at time of Disposition: Anticoagulant long-term use Fall Qualifiers: Encounter type: initial encounter Qualified Code(s): W19.XXXA - Unspecified fall, initial encounter Head injury Qualifiers: Encounter type: initial encounter Qualified Code(s): S09.90XA - Unspecified injury of head, initial encounter - Discharge Dispostion Disposition: HOME - Referrals Referrals: Marcelino Hercules MD [Primary Care Provider] - - Patient Instructions Printed Discharge Instructions: How to Prevent Falls, DI for Closed Head Injury Additional Instructions: If you develop a worsening headache, dizziness, changes in vision, loss of consciousness or have other concerns return to the ED. Please follow up with your primary care doctor within the next week.
--- NOTE | 2018-12-26 13:03 | PDOC ---
Attending Attestation - Resident Resident Name: ReguloSeverianowinterchintan Jg - ED Attending Attestation I have performed the following: I have examined & evaluated the patient, The case was reviewed & discussed with the resident, I agree w/resident's findings & plan, Exceptions are as noted - HPI HPI: 12/26/18 13:04 68y F pmhx cva (2016 with residual weakness), DVT/PE on eliquis, CAD, HTN, HL, GERD, was in her USOH, she moved backwards and hit her back of her head and back on the dresser. denies any LOC, was assisted by her son afterwards. This morning, she has a mild headache without focal neuro complaints including vision changes, numbness/tingling/weakness, neck pain. denies any sob, cp, palpitations fever/chills, cough, dysuria, hematuria. pt endorses mild epigastric burning presents with comlplaint of headache. 12/26/18 13:15 - Medical Decision Making 12/26/18 16:52 pts labs reviewed unremarkble trop neg imaging negative will dc the pt with supportive care Heart Score/ECG Review - ECG Impressions Comment:: 12/26/18 14:48 Twelve-lead EKG was performed and reviewed by me. There is normal sinus rhythm with a rate of 56 1st degree av block Flipped T waves in anterolateral leads Impression: sinus bradycardia
[2018-12-26] MEDS ORDERED: ACETAMINOPHEN 325 MG TABLET (FP) PO ONE (14:52)
[2018-12-26] MEDS ORDERED: ACETAMINOPHEN 325 MG TABLET (FP) ONE (14:56)
[2018-12-26 15:27] LABS: EOS % 3.4 % (0-4.5); HEMATOCRIT 42.2 % (32.4-45.2); HEMOGLOBIN 13.8 GM/dL (10.7-15.3); LYMPH % 49.7 % (8-40); MCH 27.8 pg (25.7-33.7); MCHC 32.6 g/dl (32.0-36.0); MEAN CELL VOLUME 85.1 fl (80-96); MEAN PLT VOLUME 9.9 fl (7.5-11.1); MONO % 8.3 % (3.8-10.2); NEUT % 37.6 % (42.8-82.8); PLATELET COUNT 176 K/MM3 (134-434); RBC 4.96 M/mm3 (3.60-5.2); RDW 14.5 % (11.6-15.6)
[2018-12-26 15:59] LABS: BILIRUBIN,TOTAL 0.7 mg/dL (0.2-1); BLOOD UREA NITROGEN 14.6 mg/dL (7-18); CALCIUM 9.4 mg/dL (8.5-10.1); CREATININE 0.7 mg/dL (0.55-1.3); POTASSIUM 4.2 mmol/L (3.5-5.1); TOT PROT 8.1 g/dl (6.4-8.2)
--- NOTE | 2018-12-26 16:21 | EKG ---
Test Reason : Blood Pressure : / mmHG Vent. Rate : 056 BPM Atrial Rate : 056 BPM P-R Int : 212 ms QRS Dur : 108 ms QT Int : 456 ms P-R-T Axes : 036 -17 005 degrees QTc Int : 440 ms SINUS BRADYCARDIA WITH 1ST DEGREE A-V BLOCK WITH PREMATURE ATRIAL COMPLEXES WITH ABERRANT CONDUCTION ANTERIOR INFARCT (CITED ON OR BEFORE 11-NOV-2011) ABNORMAL ECG WHEN COMPARED WITH ECG OF 03-JUL-2016 03:00, PREMATURE VENTRICULAR COMPLEXES ARE NO LONGER PRESENT ABERRANT CONDUCTION IS NOW PRESENT [place] INTERVAL HAS INCREASED VENT. RATE HAS DECREASED BY 30 BPM Confirmed by GLORIA WHITFIELD MD ([id number]) on 12/26/2018 4:21:10 PM Referred By: Confirmed By:GLORIA WHITFIELD MD
[2018-12-26 17:37] VITALS: BP 144/60; PULSE 60; TEMP 97.9
== END 2018-12-26 17:38 | disposition home or self-care (01) ==
LOC: JER 12:05
DX: S09.8XXA Other specified injuries of head, initial encounter (principal); W01.190A Fall on same level from slipping, tripping and stumbling with subsequent striking against furniture, initial encounter; Y93.89 Activity, other specified; Y92.032 Bedroom in apartment as the place of occurrence of the external cause; Y99.8 Other external cause status; I25.10 Atherosclerotic heart disease of native coronary artery without angina pectoris; I10 Essential (primary) hypertension; Z95.5 Presence of coronary angioplasty implant and graft; Z86.711 Personal history of pulmonary embolism; Z86.718 Personal history of other venous thrombosis and embolism; Z79.01 Long term (current) use of anticoagulants; E11.9 Type 2 diabetes mellitus without complications; K21.9 Gastro-esophageal reflux disease without esophagitis; I69.854 Hemiplegia and hemiparesis following other cerebrovascular disease affecting left non-dominant side
CPT/HCPCS: 36415; 70450-TC; 80053; 82550; 82553; 84484; 85025; 93005; 93010; 99282-25

== ENCOUNTER 2019-04-13 18:36 | Observation (INO) | payer OTHER ==
--- NOTE | 2019-04-13 20:01 | PDOC ---
Attending Attestation - Resident Resident Name: Mat Castillo - ED Attending Attestation I have performed the following: I have examined & evaluated the patient, The case was reviewed & discussed with the resident, I agree w/resident's findings & plan - HPI HPI: 04/13/19 23:00 see resident hpi - Physicial Exam PE: 04/13/19 23:00 see resident exam - Medical Decision Making 04/13/19 23:01 68-year-old female status post mechanical fall due to chronic gait disturbance with contusion in the periorbital region currently on Eliquis CT scans of the head facial bones and cervical spine show no acute traumatic injury We will hold for observation and repeat CT scan in the morning
[2019-04-13 20:12] LABS: BASO % 0.5 % (0-2.0); EOS % 2.7 % (0-4.5); HEMATOCRIT 40.6 % (32.4-45.2); HEMOGLOBIN 13.2 GM/dL (10.7-15.3); LYMPH % 46.4 % (8-40); MCH 27.6 pg (25.7-33.7); MCHC 32.5 g/dl (32.0-36.0); MEAN CELL VOLUME 84.9 fl (80-96); MEAN PLT VOLUME 9.4 fl (7.5-11.1); MONO % 6.9 % (3.8-10.2); NEUT % 43.5 % (42.8-82.8); PLATELET COUNT 171 K/MM3 (134-434); RBC 4.78 M/mm3 (3.60-5.2); RDW 15.1 % (11.6-15.6); WHITE BLOOD COUNT 5.9 K/mm3 (4.0-10.0)
--- NOTE | 2019-04-13 20:31 | PDOC ---
History of Present Illness - General Chief Complaint: Injury Stated Complaint: FALL Time Seen by Provider: 04/13/19 20:00 - History of Present Illness Initial Comments: The pt is a 68F w/ a history of CVA (residual LUE/LLE weakness), CAD s/p CABG, s /p stent (Eliquis), HTN, history of DVT who presents for evaluation s/p mechanical fall from standing. The pt reports walking to the bathroom, and not lifting her left leg enough, tripping on a tile, and hitting her head on the sink. She denies LOC. She denies dizziness or chest pain before the incident. Currently she endorses mild dizziness, TELLEZ, thoracic back pain, and right facial pain. She denies fevers, vision changes, pain with occular movement, current chest pain, trouble breathing, N/V, dysuria, rash, or acute changes in sensation or strength. 04/13/19 20:25 Past History - Past Medical History Allergies/Adverse Reactions: Allergies Allergy/AdvReac Type Severity Reaction Status Date / Time Penicillins Allergy Verified 04/13/19 18:57 hydromorphone HCl AdvReac Severe HALLUCINATI Verified 04/13/19 18:57 [From Dilaudid] ONS Home Medications: Ambulatory Orders Atorvastatin Ca [Lipitor] 80 mg PO HS 02/24/16 Gabapentin [Neurontin -] 300 mg PO BID 02/24/16 Apixaban [Eliquis -] 5 mg PO BID tablet 07/08/16 Aspirin [ASA -] 81 mg PO DAILY tab.chew 07/08/16 Ezetimibe [Zetia -] 10 mg PO DAILY tablet 07/08/16 Furosemide [Lasix -] 40 mg PO BID@0600,1400 tablet 07/08/16 traMADol HCL [Ultram -] 50 mg PO Q6H PRN #0 tablet MDD 200mg 07/08/16 Metoprolol Succinate [Toprol XL -] 25 mg PO BID 07/11/16 Potassium Chloride [K-Dur -] 20 meq PO DAILY 04/13/19 Anemia: No Asthma: Yes Cancer: No Cardiac Disorders: Yes CVA: Yes (Lt sided residual, uses walker) COPD: No CHF: No Dementia: No Diabetes: Yes GI Disorders: Yes (REFLUX.) Disorders: No HTN: Yes Hypercholesterolemia: Yes Liver Disease: No Seizures: No Thyroid Disease: No - Surgical History Abdominal Surgery: Yes Cardiac Surgery: Yes (stent placement) Cholecystectomy: Yes Lung Surgery: No Neurologic Surgery: No Orthopedic Surgery: No - Immunization History Immunization Up to Date: No - Psycho Social/Smoking Cessation Hx Smoking Status: No Smoking History: Never smoked Have you smoked in the past 12 months: No Number of Cigarettes Smoked Daily: 0 Cigars Per Day: 0 Information on smoking cessation initiated: No Hx Alcohol Use: No Drug/Substance Use Hx: No Substance Use Type: None Hx Substance Use Treatment: No Review of Systems - Review of Systems Able to Perform ROS?: Yes Comments:: GENERAL/CONSTITUTIONAL: No fever or chills HEAD, EYES, EARS, NOSE AND THROAT: No change in vision. No change in hearing. No sore throat CARDIOVASCULAR: No chest pain or shortness of breath RESPIRATORY: Denies cough, hemoptysis GASTROINTESTINAL: No nausea, vomiting, diarrhea or constipation GENITOURINARY: No dysuria, frequency, or change in urination MUSCULOSKELETAL: +back pain SKIN: +R facial bruise NEUROLOGIC: No headache, vertigo, loss of consciousness, or change in strength/ sensation ENDOCRINE: No increased thirst. No abnormal weight change HEMATOLOGIC/LYMPHATIC: +history of DVT; +Eliquis ALLERGIC/IMMUNOLOGIC: No hives or skin allergy 04/13/19 20:29 Is the patient limited Kiswahili proficient: No *Physical Exam - Vital Signs Last Vital Signs Temp Pulse Resp BP Pulse Ox 99.3 F 61 17 154/45 L 98 04/13/19 18:54 04/13/19 18:54 04/13/19 18:54 04/13/19 18:54 04/13/19 18:54 - Physical Exam GENERAL: Awake, alert, and oriented to person/place/time, in no acute distress HEAD: R infraorbital ecchymosis w/o underlying bony crepitus EYES: PERRLA, EOMI, sclera anicteric, conjunctiva clear ENT: Hearing grossly normal, nares patent, oropharynx clear without exudates. No uvular deviation. Moist mucosa_ LUNGS: No distress, speaks in full sentences, clear to auscultation bilaterally HEART: Regular rate and rhythm, normal S1 and S2, no murmurs appreciated, peripheral pulses normal and equal bilaterally ABDOMEN: Soft, nontender, normoactive bowel sounds. No guarding, no rebound EXTREMITIES: Moves all extremities independently NEUROLOGICAL: Cranial nerves II through XII grossly intact. Residual LUE/LLE weakness, reported to be baseline SKIN: R infraorbital ecchymosis, otherwise warm/dry 04/13/19 20:31 ED Treatment Course - LABORATORY CBC & Chemistry Diagram: 04/13/19 20:00 04/13/19 20:00 - ADDITIONAL ORDERS Additional order review: 04/13/19 20:00 RBC 4.78 MCV 84.9 MCHC 32.5 RDW 15.1 MPV 9.4 Neutrophils % 43.5 Lymphocytes % 46.4 H Monocytes % 6.9 Eosinophils % 2.7 Basophils % 0.5 - RADIOLOGY Radiology Studies Ordered: Category Date Time Status CERVICAL SPINE CT W/O CONTR [CT] Stat CT Scan 04/13/19 19:[address] W/O CONTRAST [CT] Stat CT Scan 04/13/19 20:[address] WITHOUT CONTRAST [CT] Stat CT Scan 04/13/19 19:46 Ordered CHEST X-RAY PORTABLE* [RAD] Stat Radiology 04/13/19 19:47 Ordered Radiograph Interpretation: PRELIMINARY REPORT FROM IMAGING BI TRI OPERATOR EXAM: CT brain without contrast DATE: 2019-04-13 20:31:47 IMPRESSION: Intracranial hemorrhage: None. Mass effect: None. Brain parenchyma: No acute process seen. 04/13/19 22:08 PRELIMINARY REPORT FROM IMAGING BI TRI OPERATOR EXAM: CT cervical spine without contrast IMPRESSION: Subluxations: None. Acute fractures: None. Other findings: Mild degenerative changes PRELIMINARY REPORT FROM IMAGING BI TRI OPERATOR EXAM: CT face without contrast DATE: 2019-04-13 20:28:33 IMPRESSION: No orbital fluid collection seen. No acute air-fluid level seen in paranasal sinuses. No acute fracture seen of the visualized orbital and maxillofacial bones. Right infraorbital soft tissue swelling with 2 cm superficial hematoma 04/13/19 22:56 Medical Decision Making - Medical Decision Making The pt is a 68F w/ a history of CVA (residual LUE/LLE weakness), CAD s/p CABG, s /p stent (Eliquis), HTN, history of DVT who presents for evaluation s/p mechanical fall from standing. ED Course CT head, c-spine, facial bones Labs sent ECG CXR Tylenol for pain 04/13/19 20:[address] head w/o acute bleed Will obs for repeat head CT given fall on Eliquis No leukocytosis No anemia Lytes unremarkable No ANNABELLE LFTs wnl Mg wnl ECG w/ sinus rhythm, occasional PVCs, HR 70; left axis deviation; no ALFIE 04/13/19 22:12 CT face w/ hematoma w/o acute fx CT c-spine w/o acute fx 04/13/19 22:57 Microblog sent for obs, awaiting response Pt signed out to Dr. Fish Pt's family update on plan and all questions answered Discharge - Discharge Information Problems reviewed: Yes Clinical Impression/Diagnosis: Anticoagulant long-term use Fall Qualifiers: Encounter type: initial encounter Qualified Code(s): W19.XXXA - Unspecified fall, initial encounter Facial hematoma Qualifiers: Encounter type: initial encounter Qualified Code(s): S00.83XA - Contusion of other part of head, initial encounter Condition: Stable - Admission Yes - Follow up/Referral Referrals: Marcelino Hercules MD [Primary Care Provider] - - Patient Discharge Instructions - Post Discharge Activity
[2019-04-13] MEDS ORDERED: ACETAMINOPHEN 325 MG TABLET (FP) PO ONE (20:33)
[2019-04-13 20:34] LABS: INR 1.43 (0.83-1.09); PROTHROMBIN TIME (PATIENT) 16.9 SEC (9.7-13.0)
[2019-04-13 20:36] LABS: ACTIVATED PTT 38.7 SECONDS (25.2-36.5)
[2019-04-13 20:45] LABS: ALBUMIN 3.8 g/dl (3.4-5.0); BILIRUBIN,TOTAL 0.2 mg/dL (0.2-1); BLOOD UREA NITROGEN 9.4 mg/dL (7-18); CALCIUM 9.4 mg/dL (8.5-10.1); CREATININE 0.8 mg/dL (0.55-1.3); POTASSIUM 4.2 mmol/L (3.5-5.1); TOT PROT 7.6 g/dl (6.4-8.2)
[2019-04-13] MEDS ORDERED: ACETAMINOPHEN 325 MG TABLET (FP) ONE ×2 (20:57→21:02)
[2019-04-13 23:05] LABS: EPI CELLS 16.2 /HPF (0-5/HPF); HYALINE CASTS 5 /lpf (0-8); URINE APPEARANCE CLOUDY; URINE BACTERIA 202.4 /hpf (NEGATIVE); URINE BILIRUBIN NEGATIVE (NEGATIVE); URINE COLOR YELLOW; URINE GLUCOSE (UA) NEGATIVE (NEGATIVE); URINE KETONE NEGATIVE (NEGATIVE); URINE LEUK ESTERASE 2+ (NEGATIVE); URINE NITRITE NEGATIVE (NEGATIVE); URINE PROTEIN NEGATIVE (NEGATIVE); URINE WBC 17 /hpf (0-5)
[2019-04-13 23:59] LABS: URINE RBC 4.4 /hpf (0-4)
--- NOTE | 2019-04-14 00:36 | PDOC ---
*Physical Exam - Vital Signs Last Vital Signs Temp Pulse Resp BP Pulse Ox 99.3 F 61 17 154/45 L 98 04/13/19 18:54 04/13/19 18:54 04/13/19 18:54 04/13/19 18:54 04/13/19 18:54 ED Treatment Course - LABORATORY CBC & Chemistry Diagram: 04/14/19 06:15 04/14/19 06:15 - ADDITIONAL ORDERS Additional order review: Laboratory Results 04/13/19 04/13/19 04/13/19 22:55 20:00 20:00 PT with INR INR PTT (Actin FS) Sodium 141 Potassium 4.2 Chloride 107 Carbon Dioxide 29 Anion Gap 5 L BUN 9.4 Creatinine 0.8 Est GFR (CKD-EPI)AfAm 87.18 Est GFR (CKD-EPI)NonAf 75.22 Random Glucose 137 H Calcium 9.4 Magnesium 1.9 Total Bilirubin 0.2 AST 31 ALT 33 Alkaline Phosphatase 68 Total Protein 7.6 Albumin 3.8 Urine Color Yellow Urine Appearance Cloudy Urine pH 5.0 Ur Specific Meta 1.019 Urine Protein Negative Urine Glucose (UA) Negative Urine Ketones Negative Urine Blood Negative Urine Nitrite Negative Urine Bilirubin Negative Urine Urobilinogen 1.0 Ur Leukocyte Esterase 2+ H Urine WBC (Auto) 17 Urine RBC (Auto) 4.4 Urine Casts (Auto) 5 U Epithel Cells (Auto) 16.2 Urine Bacteria (Auto) 202.4 04/13/19 20:00 PT with INR 16.90 H INR 1.43 H PTT (Actin FS) 38.7 H Sodium Potassium Chloride Carbon Dioxide Anion Gap BUN Creatinine Est GFR (CKD-EPI)AfAm Est GFR (CKD-EPI)NonAf Random Glucose Calcium Magnesium Total Bilirubin AST ALT Alkaline Phosphatase Total Protein Albumin Urine Color Urine Appearance Urine pH Ur Specific Meta Urine Protein Urine Glucose (UA) Urine Ketones Urine Blood Urine Nitrite Urine Bilirubin Urine Urobilinogen Ur Leukocyte Esterase Urine WBC (Auto) Urine RBC (Auto) Urine Casts (Auto) U Epithel Cells (Auto) Urine Bacteria (Auto) 04/13/19 20:00 RBC 4.78 MCV 84.9 MCHC 32.5 RDW 15.1 MPV 9.4 Neutrophils % 43.5 Lymphocytes % 46.4 H Monocytes % 6.9 Eosinophils % 2.7 Basophils % 0.5 - Medications Given in the ED: ED Medications Discontinued Medications Generic Name Dose Route Start Last Admin Trade Name Jil PRN Reason Stop Dose Admin Acetaminophen 975 mg 04/13/19 20:33 04/13/19 21:05 Tylenol - PO 04/13/19 20:34 975 mg ONCE ONE Administration Medical Decision Making - Medical Decision Making Patient signed out by Dr. Castillo Discussed case with Dr. Bee who accepted patient for admission under Dr. Wade 04/14/19 00:35 Discharge - Discharge Information Problems reviewed: Yes Clinical Impression/Diagnosis: Anticoagulant long-term use Fall Qualifiers: Encounter type: initial encounter Qualified Code(s): W19.XXXA - Unspecified fall, initial encounter Facial hematoma Qualifiers: Encounter type: initial encounter Qualified Code(s): S00.83XA - Contusion of other part of head, initial encounter Condition: Stable - Follow up/Referral - Patient Discharge Instructions - Post Discharge Activity
[2019-04-14] MEDS ORDERED: ACETAMINOPHEN 325 MG TABLET (FP) PO PRN (01:31)
--- NOTE | 2019-04-14 01:31 | HP ---
<Cristobal Wade - Last Filed: 04/14/19 02:25> CHIEF COMPLAINT: PCP: HISTORY OF PRESENT ILLNESS: ER course was notable for: (1) (2) (3) Recent Travel: PAST MEDICAL HISTORY: PAST SURGICAL HISTORY: Social History: Smoking: Alcohol: Drugs: Allergies Penicillins Allergy (Verified 04/13/19 18:57) hydromorphone HCl [From Dilaudid] Adverse Reaction (Severe, Verified 04/13/19 18 :57) HALLUCINATIONS HOME MEDICATIONS: Home Medications Medication Instructions Recorded Atorvastatin Ca [Lipitor] 80 mg PO HS 02/24/16 Gabapentin [Neurontin -] 300 mg PO BID 02/24/16 Apixaban [Eliquis -] 5 mg PO BID tablet 07/08/16 Aspirin [ASA -] 81 mg PO DAILY tab.chew 07/08/16 Ezetimibe [Zetia -] 10 mg PO DAILY tablet 07/08/16 Furosemide [Lasix -] 40 mg PO BID@0600,1400 tablet 07/08/16 traMADol HCL [Ultram -] 50 mg PO Q6H PRN #0 tablet MDD 07/08/16 200mg Metoprolol Succinate [Toprol XL -] 25 mg PO BID 07/11/16 Potassium Chloride [K-Dur -] 20 meq PO DAILY 04/13/19 REVIEW OF SYSTEMS CONSTITUTIONAL: Absent: fever, chills, diaphoresis, generalized weakness, malaise, loss of appetite, weight change HEENT: Absent: rhinorrhea, nasal congestion, throat pain, throat swelling, difficulty swallowing, mouth swelling, ear pain, eye pain, visual changes CARDIOVASCULAR: Absent: chest pain, syncope, palpitations, irregular heart rate, lightheadedness , peripheral edema RESPIRATORY: Absent: cough, shortness of breath, dyspnea with exertion, orthopnea, wheezing, stridor, hemoptysis GASTROINTESTINAL: Absent: abdominal pain, abdominal distension, nausea, vomiting, diarrhea, constipation, melena, hematochezia GENITOURINARY: Absent: dysuria, frequency, urgency, hesitancy, hematuria, flank pain, genital pain MUSCULOSKELETAL: Absent: myalgia, arthralgia, joint swelling, back pain, neck pain SKIN: Absent: rash, itching, pallor HEMATOLOGIC/IMMUNOLOGIC: Absent: easy bleeding, easy bruising, lymphadenopathy, frequent infections ENDOCRINE: Absent: unexplained weight gain, unexplained weight loss, heat intolerance, cold intolerance NEUROLOGIC: Absent: headache, focal weakness or paresthesias, dizziness, unsteady gait, seizure, mental status changes, bladder or bowel incontinence PSYCHIATRIC: Absent: anxiety, depression, suicidal or homicidal ideation, hallucinations. PHYSICAL EXAMINATION Vital Signs - 24 hr 04/13/19 04/14/19 18:54 01:32 Temperature 99.3 F 97.7 F Pulse Rate 61 Pulse Rate [ 63 Radial] Respiratory 17 18 Rate Blood Pressure 154/45 L Blood Pressure 125/51 L [Left Arm] O2 Sat by Pulse 98 96 Oximetry (%) GENERAL: Awake, alert, and fully oriented, in no acute distress. HEAD: Normal with no signs of trauma. EYES: Pupils equal, round and reactive to light, extraocular movements intact, sclera anicteric, conjunctiva clear. No lid lag. EARS, NOSE, THROAT: Ears normal, nares patent, oropharynx clear without exudates. Moist mucous membranes. NECK: Normal range of motion, supple without lymphadenopathy, JVD, or masses. LUNGS: Breath sounds equal, clear to auscultation bilaterally. No wheezes, and no crackles. No accessory muscle use. HEART: Regular rate and rhythm, normal S1 and S2 without murmur, rub or gallop. ABDOMEN: Soft, nontender, not distended, normoactive bowel sounds, no guarding, no rebound, no masses. No hepatomegaly or splenomegaly. MUSCULOSKELETAL: Normal range of motion at all joints. No bony deformities or tenderness. No CVA tenderness. UPPER EXTREMITIES: 2+ pulses, warm, well-perfused. No cyanosis. No clubbing. No peripheral edema. LOWER EXTREMITIES: 2+ pulses, warm, well-perfused. No calf tenderness. No peripheral edema. NEUROLOGICAL: Cranial nerves II-XII intact. Normal speech. Normal gait. PSYCHIATRIC: Cooperative. Good eye contact. Appropriate mood and affect. SKIN: Warm, dry, normal turgor, no rashes or lesions noted, normal capillary refill. Laboratory Results - last 24 hr 04/13/19 04/13/19 04/13/19 20:00 20:00 20:00 WBC 5.9 RBC 4.78 Hgb 13.2 Hct 40.6 MCV 84.9 MCH 27.6 MCHC 32.5 RDW 15.1 Plt Count 171 MPV 9.4 Absolute Neuts (auto) 2.6 Neutrophils % 43.5 Lymphocytes % 46.4 H Monocytes % 6.9 Eosinophils % 2.7 Basophils % 0.5 Nucleated RBC % 0 PT with INR 16.90 H INR 1.43 H PTT (Actin FS) 38.7 H Sodium 141 Potassium 4.2 Chloride 107 Carbon Dioxide 29 Anion Gap 5 L BUN 9.4 Creatinine 0.8 Est GFR (CKD-EPI)AfAm 87.18 Est GFR (CKD-EPI)NonAf 75.22 Random Glucose 137 H Calcium 9.4 Magnesium Total Bilirubin 0.2 AST 31 ALT 33 Alkaline Phosphatase 68 Total Protein 7.6 Albumin 3.8 Urine Color Urine Appearance Urine pH Ur Specific Robbins Urine Protein Urine Glucose (UA) Urine Ketones Urine Blood Urine Nitrite Urine Bilirubin Urine Urobilinogen Ur Leukocyte Esterase Urine WBC (Auto) Urine RBC (Auto) Urine Casts (Auto) U Epithel Cells (Auto) Urine Bacteria (Auto) 04/13/19 04/13/19 20:00 22:55 WBC RBC Hgb Hct MCV MCH MCHC RDW Plt Count MPV Absolute Neuts (auto) Neutrophils % Lymphocytes % Monocytes % Eosinophils % Basophils % Nucleated RBC % PT with INR INR PTT (Actin FS) Sodium Potassium Chloride Carbon Dioxide Anion Gap BUN Creatinine Est GFR (CKD-EPI)AfAm Est GFR (CKD-EPI)NonAf Random Glucose Calcium Magnesium 1.9 Total Bilirubin AST ALT Alkaline Phosphatase Total Protein Albumin Urine Color Yellow Urine Appearance Cloudy Urine pH 5.0 Ur Specific Robbins 1.019 Urine Protein Negative Urine Glucose (UA) Negative Urine Ketones Negative Urine Blood Negative Urine Nitrite Negative Urine Bilirubin Negative Urine Urobilinogen 1.0 Ur Leukocyte Esterase 2+ H Urine WBC (Auto) 17 Urine RBC (Auto) 4.4 Urine Casts (Auto) 5 U Epithel Cells (Auto) 16.2 Urine Bacteria (Auto) 202.4 ASSESSMENT/PLAN: ATTENDING PHYSICIAN STATEMENT I saw and evaluated the patient. I reviewed the resident's note and discussed the case with the resident. I agree with the resident's findings and plan as documented. SUBJECTIVE: OBJECTIVE: ASSESSMENT AND PLAN: <Jazmyne Bee - Last Filed: 04/14/19 05:00> CHIEF COMPLAINT: mechanical fall PCP: Dr Bates HISTORY OF PRESENT ILLNESS: 68F w/ a history of CVA (residual LUE/LLE weakness) 3 years ago, CAD s/p CABG, s /p stent (Eliquis), HTN, history of DVT 3 years ago s/p stroke rehab who presents for evaluation s/p mechanical fall from standing. The pt reports walking to the bathroom, and not lifting her left leg high enough, tripping on a tile resulting in a fall and hitting her head on the sink. She denies syncope, LOC, dizziness, visual changes, chest pain, SOB, palpitations prior to the fall. She also denies urinary symptoms. Currently she endorses mild dizziness, pressure like TELLEZ, thoracic non radiating back pain without numbness/tingling/worsening weakness, and right facial pain. ER course was notable for: (1) CBC unremarkable, CMP unremarkable, PT/INR/PTT 16.9/1.43/38.7 (2) UA positive but patient asymptomatic. EKF NSR with occasional PVCs (3) Head, neck and face CT scan negative for fracture. Face CT shows subcutaneous ecchymosis. tylenol for pain Recent Travel: none PAST MEDICAL HISTORY: as above PAST SURGICAL HISTORY: cabg, cholecystectomy Social History: denies Smoking: Alcohol: Drugs: Allergies Penicillins Allergy (Verified 04/13/19 18:57) hydromorphone HCl [From Dilaudid] Adverse Reaction (Severe, Verified 04/13/19 18 :57) HALLUCINATIONS HOME MEDICATIONS: Home Medications Medication Instructions Recorded Atorvastatin Ca [Lipitor] 80 mg PO HS 02/24/16 Gabapentin [Neurontin -] 300 mg PO BID 02/24/16 Apixaban [Eliquis -] 5 mg PO BID tablet 07/08/16 Aspirin [ASA -] 81 mg PO DAILY tab.chew 07/08/16 Ezetimibe [Zetia -] 10 mg PO DAILY tablet 07/08/16 Furosemide [Lasix -] 40 mg PO BID@0600,1400 tablet 07/08/16 traMADol HCL [Ultram -] 50 mg PO Q6H PRN #0 tablet MDD 07/08/16 200mg Metoprolol Succinate [Toprol XL -] 25 mg PO BID 07/11/16 Potassium Chloride [K-Dur -] 20 meq PO DAILY 04/13/19 REVIEW OF SYSTEMS CONSTITUTIONAL: Absent: fever, chills, diaphoresis, generalized weakness, malaise, loss of appetite, weight change HEENT: Absent: rhinorrhea, nasal congestion, throat pain, throat swelling, difficulty swallowing, mouth swelling, ear pain, eye pain, visual changes CARDIOVASCULAR: Absent: chest pain, syncope, palpitations, irregular heart rate, lightheadedness , peripheral edema RESPIRATORY: Absent: cough, shortness of breath, dyspnea with exertion, orthopnea, wheezing, stridor, hemoptysis GASTROINTESTINAL: Absent: abdominal pain, abdominal distension, nausea, vomiting, diarrhea, constipation, melena, hematochezia GENITOURINARY: Absent: dysuria, frequency, urgency, hesitancy, hematuria, flank pain, genital pain MUSCULOSKELETAL: back pain Absent: myalgia, arthralgia, joint swelling , neck pain SKIN: Absent: rash, itching, pallor HEMATOLOGIC/IMMUNOLOGIC: Absent: easy bleeding, easy bruising, lymphadenopathy, frequent infections ENDOCRINE: Absent: unexplained weight gain, unexplained weight loss, heat intolerance, cold intolerance NEUROLOGIC: headache Absent: focal weakness or paresthesias, dizziness, unsteady gait, seizure, mental status changes, bladder or bowel incontinence PSYCHIATRIC: Absent: anxiety, depression, suicidal or homicidal ideation, hallucinations. PHYSICAL EXAMINATION Vital Signs - 24 hr 04/13/19 18:54 Temperature 99.3 F Pulse Rate 61 Respiratory 17 Rate Blood Pressure 154/45 L O2 Sat by Pulse 98 Oximetry (%) GENERAL: Awake, alert, and fully oriented, in no acute distress. HEAD: Normal with no signs of trauma. EYES: right orbital ecchymosis, Pupils equal, round and reactive to light, extraocular movements intact, sclera anicteric, conjunctiva clear. No lid lag. EARS, NOSE, THROAT: oropharynx clear without exudates. Moist mucous membranes. NECK: Normal range of motion, supple without lymphadenopathy, JVD, or masses. LUNGS: Breath sounds equal, clear to auscultation bilaterally. No wheezes, and no crackles. No accessory muscle use. HEART: Regular rate and rhythm, normal S1 and S2 without murmur, rub or gallop. ABDOMEN: Soft, nontender, not distended, normoactive bowel sounds, no guarding, no rebound, no masses. No hepatomegaly or splenomegaly. MUSCULOSKELETAL: Normal range of motion at all joints. No bony deformities or tenderness. No CVA tenderness. UPPER EXTREMITIES: 2+ pulses, warm, well-perfused. No cyanosis. No clubbing. No peripheral edema. LOWER EXTREMITIES: 2+ pulses, warm, well-perfused. No calf tenderness. mild nonpitting peripheral edema. NEUROLOGICAL: Cranial nerves II-XII intact. Normal speech. motor strength 5/5 residual upper and lower extremity weakness on the left side. sensation intact PSYCHIATRIC: Cooperative. Good eye contact. Appropriate mood and affect. SKIN: Warm, dry, normal turgor, no rashes or lesions noted, normal capillary refill. Laboratory Results - last 24 hr 04/13/19 04/13/19 04/13/19 20:00 20:00 20:00 WBC 5.9 RBC 4.78 Hgb 13.2 Hct 40.6 MCV 84.9 MCH 27.6 MCHC 32.5 RDW 15.1 Plt Count 171 MPV 9.4 Absolute Neuts (auto) 2.6 Neutrophils % 43.5 Lymphocytes % 46.4 H Monocytes % 6.9 Eosinophils % 2.7 Basophils % 0.5 Nucleated RBC % 0 PT with INR 16.90 H INR 1.43 H PTT (Actin FS) 38.7 H Sodium 141 Potassium 4.2 Chloride 107 Carbon Dioxide 29 Anion Gap 5 L BUN 9.4 Creatinine 0.8 Est GFR (CKD-EPI)AfAm 87.18 Est GFR (CKD-EPI)NonAf 75.22 Random Glucose 137 H Calcium 9.4 Magnesium Total Bilirubin 0.2 AST 31 ALT 33 Alkaline Phosphatase 68 Total Protein 7.6 Albumin 3.8 Urine Color Urine Appearance Urine pH Ur Specific Robbins Urine Protein Urine Glucose (UA) Urine Ketones Urine Blood Urine Nitrite Urine Bilirubin Urine Urobilinogen Ur Leukocyte Esterase Urine WBC (Auto) Urine RBC (Auto) Urine Casts (Auto) U Epithel Cells (Auto) Urine Bacteria (Auto) 04/13/19 04/13/19 20:00 22:55 WBC RBC Hgb Hct MCV MCH MCHC RDW Plt Count MPV Absolute Neuts (auto) Neutrophils % Lymphocytes % Monocytes % Eosinophils % Basophils % Nucleated RBC % PT with INR INR PTT (Actin FS) Sodium Potassium Chloride Carbon Dioxide Anion Gap BUN Creatinine Est GFR (CKD-EPI)AfAm Est GFR (CKD-EPI)NonAf Random Glucose Calcium Magnesium 1.9 Total Bilirubin AST ALT Alkaline Phosphatase Total Protein Albumin Urine Color Yellow Urine Appearance Cloudy Urine pH 5.0 Ur Specific Robbins 1.019 Urine Protein Negative Urine Glucose (UA) Negative Urine Ketones Negative Urine Blood Negative Urine Nitrite Negative Urine Bilirubin Negative Urine Urobilinogen 1.0 Ur Leukocyte Esterase 2+ H Urine WBC (Auto) 17 Urine RBC (Auto) 4.4 Urine Casts (Auto) 5 U Epithel Cells (Auto) 16.2 Urine Bacteria (Auto) 202.4 PRELIMINARY REPORT FROM [facility] [employer] TECHNICIAN EXAM: CT brain without contrast DATE: 2019-04-13 20:31:47 IMPRESSION: Intracranial hemorrhage: None. Mass effect: None. Brain parenchyma: No acute process seen. 04/13/19 22:08 PRELIMINARY REPORT FROM [facility] [employer] [facility] TECHNICIAN EXAM: CT cervical spine without contrast IMPRESSION: Subluxations: None. Acute fractures: None. Other findings: Mild degenerative changes PRELIMINARY REPORT FROM [facility] [employer] [facility] TECHNICIAN EXAM: CT face without contrast DATE: 2019-04-13 20:28:33 IMPRESSION: No orbital fluid collection seen. No acute air-fluid level seen in paranasal sinuses. No acute fracture seen of the visualized orbital and maxillofacial bones. Right infraorbital soft tissue swelling with 2 cm superficial hematoma ASSESSMENT/PLAN: 68F w/ a history of CVA (residual LUE/LLE weakness) 3 years ago, CAD s/p CABG, s /p stent (Eliquis), HTN, history of DVT 3 years ago s/p stroke rehab who presents for evaluation s/p mechanical fall from standing while on ELiquis; admitted to monitor for bleeding and AMS Mechanical Fall pt denies any syncopal symptoms prior to fall or LOC admitting to obs Head, neck and face CT negative for fracture. Face CT Right infraorbital soft tissue swelling with 2 cm superficial hematoma neurochecks Q2H Repeat CT after 24hrs. ordered for the morning pain control with tylenol PT ordered. pt uses walker Fall precautions Holding AC for now to monitor for bleeding follow labs in the Am HTN Resume meds once med rec CAD s/p CABG and hx of DVT - on Eliquis Holding All Anticoags for now no eliquis or aspirin DVT SCDs Admit to Observation Visit type - Emergency Visit Emergency Visit: Yes ED Registration Date: 04/13/19 Care time: The patient presented to the Emergency Department on the above date and was hospitalized for further evaluation of their emergent condition. - New Patient This patient is new to me today: Yes Date on this admission: 04/14/19 - Critical Care Critical Care patient: No ATTENDING PHYSICIAN STATEMENT I saw and evaluated the patient. I reviewed the resident's note and discussed the case with the resident. I agree with the resident's findings and plan as documented. SUBJECTIVE: OBJECTIVE: ASSESSMENT AND PLAN:
[2019-04-14] MEDS ORDERED: SODIUM CHLORIDE 1,000 ML IV SCH (01:45)
[2019-04-14] MEDS ORDERED: FUROSEMIDE 40 MG/4 ML INJECTABLE VIAL IVPUSH ONE (03:00)
[2019-04-14 05:05] VITALS: BMI 40.2
[2019-04-14 07:13] LABS: BASO % 0.6 % (0-2.0); EOS % 2.7 % (0-4.5); HEMATOCRIT 39.7 % (32.4-45.2); HEMOGLOBIN 13.3 GM/dL (10.7-15.3); LYMPH % 49.1 % (8-40); MCH 27.9 pg (25.7-33.7); MCHC 33.4 g/dl (32.0-36.0); MEAN CELL VOLUME 83.5 fl (80-96); MEAN PLT VOLUME 9.7 fl (7.5-11.1); MONO % 7.8 % (3.8-10.2); NEUT % 39.8 % (42.8-82.8); PLATELET COUNT 168 K/MM3 (134-434); RBC 4.75 M/mm3 (3.60-5.2); RDW 15.1 % (11.6-15.6); WHITE BLOOD COUNT 6.2 K/mm3 (4.0-10.0)
[2019-04-14 07:39] LABS: ALBUMIN 3.5 g/dl (3.4-5.0); BILIRUBIN,TOTAL 0.4 mg/dL (0.2-1); CALCIUM 9.3 mg/dL (8.5-10.1); CREATININE 0.9 mg/dL (0.55-1.3); PHOSPHOROUS 3.3 mg/dL (2.5-4.9); POTASSIUM 4.2 mmol/L (3.5-5.1); TOT PROT 7.4 g/dl (6.4-8.2)
--- NOTE | 2019-04-14 08:37 | PN ---
Progress Note, Physician History of Present Illness: mechanical fall with head trauma on eliquis - Current Medication List Current Medications: Active Medications Acetaminophen (Tylenol -) 650 mg PO Q4H PRN PRN Reason: PAIN LEVEL 6-10 Last Admin: 04/14/19 06:28 Dose: 650 mg Atorvastatin Calcium (Lipitor -) 80 mg PO HS [facility] Ezetimibe (Zetia -) 10 mg PO DAILY [facility] Furosemide (Lasix -) 40 mg PO BID@0600,1400 [facility] Gabapentin (Neurontin -) 300 mg PO BID [facility] Sodium Chloride (Normal Saline -) 1,000 mls @ 75 mls/hr IV ASDIR [facility]SHA[facility] Last Admin: 04/14/19 01:50 Dose: 75 mls/hr Metoprolol Succinate (Toprol Xl -) 25 mg PO BID [facility] Potassium Chloride (K-Dur -) 20 meq PO DAILY [facility] - Objective Vital Signs: Vital Signs Temperature 97.9 F 04/14/19 02:01 Pulse Rate 72 04/14/19 02:01 Respiratory Rate 20 04/14/19 02:01 Blood Pressure 132/53 L 04/14/19 02:01 O2 Sat by Pulse Oximetry (%) 96 04/14/19 01:32 Constitutional: Yes: Calm, Obese Eyes: Yes: EOM Intact. No: Diplopia, Occular Prosthesis HENT: Yes: Normocephalic Neck: Yes: Trachea Midline Cardiovascular: Yes: Regular Rate and Rhythm Respiratory: Yes: CTA Bilaterally Gastrointestinal: Yes: Normal Bowel Sounds, Soft, Abdomen, Obese Musculoskeletal: Yes: WNL Extremities: Yes: WNL Edema: No Peripheral Pulses WNL: Yes Integumentary: Yes: Other (right orbiatl swelling and hematoma) Neurological: Yes: Other (mild old residual left hemiparesis) Labs: CBC, BMP 04/14/19 06:15 04/14/19 06:15 INR, PTT INR 1.43 (0.83-1.09) H 04/13/19 20:00 - ....Imaging Cat Scan: Report Reviewed Problem List - Problems (1) Anticoagulant long-term use 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 transplanted heart: [place] heart (5) HTN (hypertension) Code(s): I10 - ESSENTIAL (PRIMARY) HYPERTENSION Qualifiers: Hypertension type: essential hypertension Qualified Code(s): I10 - Essential (primary) hypertension (6) Morbid obesity with BMI of 40.0-44.9, adult Code(s): Z68.41 - BODY MASS INDEX (BMI) 40.0-44.9, ADULT (7) Obesity Code(s): E66.9 - OBESITY, UNSPECIFIED Qualifiers: Obesity classification: adult class 3 (BMI >= 40) Body mass index: BMI 40.0 -44.9 (8) Stroke Code(s): I63.9 - CEREBRAL INFARCTION, UNSPECIFIED Qualifiers: CVA mechanism: occlusion Precerebral and cerebral artery: vertebral artery Laterality of affected vessel: right Qualified Code(s): I63.211 - Cerebral infarction due to unspecified occlusion or stenosis of right vertebral artery Assessment/Plan repeat head CT physical therapy if all goes well dc home in afternoon
[2019-04-14] MEDS ORDERED: GABAPENTIN 100 MG CAPSULE (FP) PO SCH (10:00)
[2019-04-14] MEDS ORDERED: POTASSIUM CHLORIDE TABS 20 MEQ TABLET.ER (FP) PO SCH (10:00)
[2019-04-14] MEDS ORDERED: EZETIMIBE 10 MG TABLET (FP) PO SCH (10:00)
[2019-04-14] MEDS ORDERED: metoPROLOL SUCCINATE 25 MG TAB.SR.24H (FP) PO SCH (10:00)
--- NOTE | 2019-04-14 10:29 | EKG ---
Test Reason : Blood Pressure : / mmHG Vent. Rate : 070 BPM Atrial Rate : 070 BPM P-R Int : 170 ms QRS Dur : 092 ms QT Int : 416 ms P-R-T Axes : 030 -12 078 degrees QTc Int : 449 ms SINUS RHYTHM WITH OCCASIONAL PREMATURE VENTRICULAR COMPLEXES LOW VOLTAGE QRS CANNOT RULE OUT ANTERIOR INFARCT (CITED ON OR BEFORE 11-NOV-2011) ABNORMAL ECG WHEN COMPARED WITH ECG OF 26-DEC-2018 13:49, PREMATURE VENTRICULAR COMPLEXES ARE NOW PRESENT ABERRANT CONDUCTION IS NO LONGER PRESENT NC INTERVAL HAS DECREASED NONSPECIFIC T WAVE ABNORMALITY NO LONGER EVIDENT IN INFERIOR LEADS Confirmed by BRISEYDA PATRICK MD ([id number]) on 04/14/2019 10:28:51 AM Referred By: Confirmed By:BRISEYDA PATRICK MD
[2019-04-14 12:43] VITALS: BP 160/88; PULSE 60; TEMP 98.6
--- NOTE | 2019-04-14 13:11 | DS ---
Physical Examination Vital Signs: Vital Signs Temperature 98.6 F 04/14/19 09:00 Pulse Rate 60 04/14/19 09:00 Respiratory Rate 20 04/14/19 09:32 Blood Pressure 160/88 04/14/19 09:00 O2 Sat by Pulse Oximetry (%) 96 04/14/19 09:32 Constitutional: Yes: Calm, Obese HENT: Yes: Normocephalic Neck: Yes: Trachea Midline Cardiovascular: Yes: Regular Rate and Rhythm Respiratory: Yes: CTA Bilaterally Gastrointestinal: Yes: Normal Bowel Sounds, Soft, Abdomen, Obese Edema: No Peripheral Pulses WNL: Yes Integumentary: Yes: Other (right periorbital edema and suborbital hematoma) Neurological: Yes: Weakness (mild chr. left) Psychiatric: Yes: WNL Labs: CBC, BMP 04/14/19 06:15 04/14/19 06:15 Discharge Summary Problems reviewed: Yes Reason For Visit: FALL,CLOSED HEAD INJURY Current Active Problems Anticoagulant long-term use (Acute) Facial hematoma (Acute) Fall (Acute) Hospital Course: admitted for observation after a mechanical fall and head injury. CT facial bones did not show any lilia injury/fracture 2 [address]s are ok, without intracranial bleed (on eliquis) can resume eliquis(was held due to trauma) otherwise ok, able to go home with outpt follow up Condition: Stable - Instructions Diet, Activity, Other Instructions: resume home medication follow up with within 1 week Referrals: Marcelino Hercules MD [Primary Care Provider] - Disposition: HOME - Home Medications Comprehensive Discharge Medication List: Ambulatory Orders Atorvastatin Ca [Lipitor] 80 mg PO HS 02/24/16 Gabapentin [Neurontin -] 300 mg PO BID 02/24/16 Apixaban [Eliquis -] 5 mg PO BID tablet 07/08/16 Aspirin [ASA -] 81 mg PO DAILY tab.chew 07/08/16 Ezetimibe [Zetia -] 10 mg PO DAILY tablet 07/08/16 Furosemide [Lasix -] 40 mg PO BID@0600,1400 tablet 07/08/16 traMADol HCL [Ultram -] 50 mg PO Q6H PRN #0 tablet MDD 200mg 07/08/16 Metoprolol Succinate [Toprol XL -] 25 mg PO BID 07/11/16 Potassium Chloride [K-Dur -] 20 meq PO DAILY 04/13/19
[2019-04-14] MEDS ORDERED: FUROSEMIDE 40 MG TABLET (FP) PO SCH (14:00)
[2019-04-14] MEDS ORDERED: ATORVASTATIN CA 80 MG TABLET (FP) PO SCH (22:00)
== END 2019-04-14 16:28 | disposition home or self-care (01) ==
LOC: JER 18:36 → JERBED 23:01 → J8W 04-14 02:16
PROVIDERS: ADMIT Internal Medicine; ATTEND Internal Medicine
PROC: 3E033GC Introduction of Other Therapeutic Substance into Peripheral Vein, Percutaneous Approach (ICD-10-PCS; principal; 2019-04-13)
PROC: 3E0337Z Introduction of Electrolytic and Water Balance Substance into Peripheral Vein, Percutaneous Approach (ICD-10-PCS; 2019-04-13)
DX: S00.83XA Contusion of other part of head, initial encounter (principal); I10 Essential (primary) hypertension; I25.10 Atherosclerotic heart disease of native coronary artery without angina pectoris; E78.5 Hyperlipidemia, unspecified; I69.354 Hemiplegia and hemiparesis following cerebral infarction affecting left non-dominant side; J45.909 Unspecified asthma, uncomplicated; E11.9 Type 2 diabetes mellitus without complications; K21.9 Gastro-esophageal reflux disease without esophagitis; E66.01 Morbid (severe) obesity due to excess calories; Z68.41 Body mass index [BMI] 40.0-44.9, adult; R26.2 Difficulty in walking, not elsewhere classified; Z99.89 Dependence on other enabling machines and devices; Z86.718 Personal history of other venous thrombosis and embolism; Z95.1 Presence of aortocoronary bypass graft; Z79.01 Long term (current) use of anticoagulants; Z95.5 Presence of coronary angioplasty implant and graft; Z88.0 Allergy status to penicillin; Z88.8 Allergy status to other drugs, medicaments and biological substances; Z79.82 Long term (current) use of aspirin
CPT/HCPCS: 36415; 70450-TC; 70486-TC; 71045-TC-FY; 72125-TC; 80053; 81003; 83735; 83880; 84100; 85025; 85610; 85730; 87086; 93005; 93010; 96374; 97116-GP; 99285-25; G0378; J7030

== ENCOUNTER 2020-09-29 05:52 | Observation (INO) | payer OTHER ==
[2020-09-29] MEDS ORDERED: ACETAMINOPHEN 1000 MG/100 ML VIAL (NON FORMULARY) IVPB ONE (07:52)
[2020-09-29] MEDS ORDERED: ACETAMINOPHEN INJECTION 100 ML IVPB ONE (08:31)
[2020-09-29 08:35] LABS: BASO % 0.8 % (0-2.0); EOS % 2.1 % (0-4.5); HEMATOCRIT 42.4 % (32.4-45.2); HEMOGLOBIN 14.2 GM/dL (10.7-15.3); LYMPH % 39.1 % (8-40); MCH 28.2 pg (25.7-33.7); MCHC 33.4 g/dl (32.0-36.0); MEAN CELL VOLUME 84.4 fl (80-96); MEAN PLT VOLUME 8.8 fl (7.5-11.1); PLATELET COUNT 165 K/MM3 (134-434); RBC 5.02 M/mm3 (3.60-5.2); RDW 14.5 % (11.6-15.6); WHITE BLOOD COUNT 7.5 K/mm3 (4.0-10.0)
[2020-09-29 08:43] LABS: INR 1.38 (0.83-1.09); PROTHROMBIN TIME (PATIENT) 16.6 SEC (9.7-13.0)
[2020-09-29 08:46] LABS: ACTIVATED PTT 35.5 SECONDS (25.2-36.5)
[2020-09-29 08:54] LABS: CALCIUM 9.7 mg/dL (8.5-10.1)
[2020-09-29 08:55] LABS: ALBUMIN 3.6 g/dl (3.4-5.0); MAGNESIUM 1.6 mg/dL (1.8-2.4)
[2020-09-29 08:58] LABS: CREATININE 0.8 mg/dL (0.55-1.3)
[2020-09-29 08:59] LABS: BILIRUBIN,TOTAL 0.4 mg/dL (0.2-1); TOT PROT 8.1 g/dl (6.4-8.2)
[2020-09-29 09:04] LABS: N-TERMINAL BNP 52.8 pg/ml (5-125)
[2020-09-29 11:56] LABS: CALCIUM 9.8 mg/dL (8.5-10.1)
[2020-09-29 11:57] LABS: ALBUMIN 3.4 g/dl (3.4-5.0); MAGNESIUM 1.6 mg/dL (1.8-2.4)
[2020-09-29 12:00] LABS: CREATININE 0.7 mg/dL (0.55-1.3)
[2020-09-29 12:02] LABS: BILIRUBIN,TOTAL 0.4 mg/dL (0.2-1); TOT PROT 7.3 g/dl (6.4-8.2)
[2020-09-29] MEDS ORDERED: SODIUM CHLORIDE NASAL SPRAY 44 ML BOTTLE NS ONE (12:23)
[2020-09-29] MEDS ORDERED: ACETAMINOPHEN 325 MG TABLET (FP) PO PRN (15:47)
[2020-09-29 17:45] VITALS: BMI 39.9
[2020-09-29] MEDS: traMADol HCL 50 MG TABLET PO PRN (17:51)
[2020-09-29] MEDS ORDERED: PT OWN MED DRAWER 7, Y5N ONE (17:54)
[2020-09-29] MEDS: ATORVASTATIN CA 80 MG TABLET (FP) PO SCH (21:43)
[2020-09-29] MEDS: metoPROLOL SUCCINATE 25 MG TAB.SR.24H (FP) PO SCH (21:43)
[2020-09-29] MEDS: APIXABAN 5 MG TABLET PO SCH (21:43)
[2020-09-29] MEDS: GABAPENTIN 300 MG CAPSULE PO SCH (21:43)
[2020-09-30] MEDS: metoPROLOL SUCCINATE 25 MG TAB.SR.24H (FP) PO SCH ×2 (09:47→21:14)
[2020-09-30] MEDS: ASPIRIN 81 MG CHEWABLE TABLETS PO SCH (09:47)
[2020-09-30] MEDS: GABAPENTIN 300 MG CAPSULE PO SCH ×2 (09:47→21:14)
[2020-09-30] MEDS: EZETIMIBE 10 MG TABLET (FP) PO SCH (09:47)
[2020-09-30] MEDS: APIXABAN 5 MG TABLET PO SCH ×2 (09:47→21:14)
[2020-09-30] MEDS: traMADol HCL 50 MG TABLET PO PRN ×2 (09:50→17:37)
[2020-09-30] MEDS: ATORVASTATIN CA 80 MG TABLET (FP) PO SCH (21:14)
[2020-09-30] MEDS ORDERED: DOCUSATE SODIUM 100 MG CAPSULE (FP) PO SCH (23:45)
[2020-10-01] MEDS ORDERED: CHLORTHALIDONE 25 MG TABLET PO SCH (10:00)
[2020-10-01] MEDS: ASPIRIN 81 MG CHEWABLE TABLETS PO SCH (10:10)
[2020-10-01] MEDS: EZETIMIBE 10 MG TABLET (FP) PO SCH (10:10)
[2020-10-01] MEDS: metoPROLOL SUCCINATE 25 MG TAB.SR.24H (FP) PO SCH (10:10)
[2020-10-01] MEDS: GABAPENTIN 300 MG CAPSULE PO SCH (10:10)
[2020-10-01] MEDS: APIXABAN 5 MG TABLET PO SCH (10:10)
[2020-10-01] MEDS: traMADol HCL 50 MG TABLET PO PRN (10:11)
[2020-10-01 15:04] VITALS: TEMP 98.6
[2020-10-01 18:45] VITALS: BP 154/67; PULSE 60
== END 2020-10-01 21:08 | disposition home health service (06) ==
LOC: JER 05:52 → UNDOADMOB 07:42 → JERBED 07:42 → INTOOBSV 15:48 → OBSVTOIN 15:48 → J4W 17:07 → JERBED 17:07 → J4W 10-01 08:28 → JERBED 10-01 08:28
PROVIDERS: ADMIT Internal Medicine; ATTEND Internal Medicine
PROC: 3E033NZ Introduction of Analgesics, Hypnotics, Sedatives into Peripheral Vein, Percutaneous Approach (ICD-10-PCS; principal; 2020-10-01)
DX: S09.90XA Unspecified injury of head, initial encounter (principal); I25.119 Atherosclerotic heart disease of native coronary artery with unspecified angina pectoris; I82.512 Chronic embolism and thrombosis of left femoral vein; I11.9 Hypertensive heart disease without heart failure; Z95.1 Presence of aortocoronary bypass graft; I48.0 Paroxysmal atrial fibrillation; Z79.01 Long term (current) use of anticoagulants; E66.9 Obesity, unspecified; Z68.39 Body mass index [BMI] 39.0-39.9, adult; Z95.5 Presence of coronary angioplasty implant and graft; I26.99 Other pulmonary embolism without acute cor pulmonale; E78.00 Pure hypercholesterolemia, unspecified; K21.9 Gastro-esophageal reflux disease without esophagitis; J45.909 Unspecified asthma, uncomplicated; Z99.89 Dependence on other enabling machines and devices; Z88.8 Allergy status to other drugs, medicaments and biological substances; Z88.0 Allergy status to penicillin; G47.33 Obstructive sleep apnea (adult) (pediatric); W22.8XXA Striking against or struck by other objects, initial encounter; Y93.89 Activity, other specified; Y92.002 Bathroom of unspecified non-institutional (private) residence as the place of occurrence of the external cause; I65.29 Occlusion and stenosis of unspecified carotid artery
CPT/HCPCS: 36415; 70450-TC; 70486-TC; 70551-TC; 71045-TC-FY; 72125-TC; 72170-TC-FY; 73523-TC-FY; 73560-TC-RT-FY; 80053; 82550; 82553; 82607; 83735; 83880; 84484; 85025; 85610; 85730; 93005; 93010; 96374; 97116-GP; 97161-GP; 99285-25; C9803; G0378; J0131; U0003; U0005

== ENCOUNTER 2022-04-15 18:11 | Inpatient (IN) | payer OTHER ==
[2022-04-15 18:22] VITALS: BMI 40.6
[2022-04-15] MEDS ORDERED: ALBUTEROL SO4 2.5/IPRATROPIUM 0.5 INH SOL 3 ML VIAL.NEB. NEB ONE ×2 (19:25→19:30)
[2022-04-15] MEDS ORDERED: DEXAMETHASONE SOD PHOSPHATE 20 MG/5 ML VIAL IVPB ONE (19:25)
[2022-04-15] MEDS ORDERED: ACETAMINOPHEN 500 MG TABLET (FP) PO ONE (19:27)
[2022-04-15] MEDS ORDERED: DEXAMETHASONE SOD PHOSPHATE 10 MG/1 ML VIAL ONE (19:30)
[2022-04-15] MEDS ORDERED: ACETAMINOPHEN 325 MG TABLET (FP) ONE (19:30)
[2022-04-15 20:04] LABS: BASO % 0.5 % (0-2.0); EOS % 2.1 % (0-4.5); HEMOGLOBIN 13.5 GM/dL (10.7-15.3); LYMPH % 27.8 % (8-40); MCH 26.8 pg (25.7-33.7); MCHC 32.1 g/dl (32.0-36.0); MEAN CELL VOLUME 83.7 fl (80-96); MEAN PLT VOLUME 9.1 fl (7.5-11.1); MONO % 7.3 % (3.8-10.2); NEUT % 62.3 % (42.8-82.8); PLATELET COUNT 170 10^3/uL (134-434); RBC 5.02 M/mm3 (3.60-5.2); RDW 14.2 % (11.6-15.6); WHITE BLOOD COUNT 9.2 K/mm3 (4.0-10.0)
[2022-04-15 20:19] LABS: ALBUMIN 3.3 g/dl (3.4-5.0); CALCIUM 9.1 mg/dL (8.5-10.1); MAGNESIUM 1.7 mg/dL (1.8-2.4)
[2022-04-15 20:20] LABS: URINE APPEARANCE CLEAR; URINE BILIRUBIN NEGATIVE (NEGATIVE); URINE COLOR YELLOW; URINE GLUCOSE (UA) NEGATIVE (NEGATIVE); URINE KETONE NEGATIVE (NEGATIVE); URINE LEUK ESTERASE NEGATIVE (NEGATIVE); URINE NITRITE NEGATIVE (NEGATIVE); URINE PROTEIN NEGATIVE (NEGATIVE); URINE UROBILINOGEN 0.2 mg/dL (0.2-1.0)
[2022-04-15 20:21] LABS: BLOOD UREA NITROGEN 12.7 mg/dL (7-18)
[2022-04-15 20:23] LABS: CREATININE 0.9 mg/dL (0.55-1.3)
[2022-04-15 20:25] LABS: BILIRUBIN,TOTAL 0.4 mg/dL (0.2-1); TOT PROT 7.4 g/dl (6.4-8.2)
[2022-04-15 20:28] LABS: N-TERMINAL BNP 114.6 pg/ml (5-125)
[2022-04-15 21:01] LABS: VENOUS BASE EXCESS 3.8 mmol/L (-2-2); VENOUS PCO2 41.7 mmHg (38-52); VENOUS PH 7.448 (7.310-7.410)
[2022-04-15 21:09] LABS: LACTIC ACID 2.5 mmol/L (0.4-2.0)
[2022-04-15] MEDS ORDERED: AZITHROMYCIN IVPB 500 MG in DEXTROSE 5%-WATER - 250 ML IVPB ONE (21:38)
[2022-04-15] MEDS ORDERED: SODIUM CHLORIDE 0.9% 500 ML INFUS.BAG IV ONE (21:38)
[2022-04-15] MEDS ORDERED: AZITHROMYCIN IVPB 500 MG/250 ML BAG IVPB ONE (21:47)
[2022-04-15] MEDS ORDERED: DOCUSATE SODIUM 100 MG CAPSULE (FP) PO PRN (22:19)
[2022-04-15] MEDS ORDERED: ATORVASTATIN CA 80 MG TABLET (FP) PO SCH (23:24)
[2022-04-15] MEDS ORDERED: APIXABAN 5 MG TABLET ONE (23:37)
[2022-04-15] MEDS ORDERED: ATORVASTATIN CA 80 MG TABLET (FP) ONE (23:37)
[2022-04-15] MEDS ORDERED: GABAPENTIN 300 MG CAPSULE ONE (23:38)
[2022-04-15] MEDS: GABAPENTIN 100 MG CAPSULE PO SCH (23:42)
[2022-04-15] MEDS: APIXABAN 5 MG TABLET PO SCH (23:42)
[2022-04-16] MEDS ORDERED: ACETAMINOPHEN 325 MG TABLET (FP) PO PRN (01:00)
[2022-04-16] MEDS ORDERED: traMADol HCL 50 MG TABLET PO PRN ×2 (02:24→19:51)
[2022-04-16] MEDS ORDERED: MELATONIN 5 MG TABLETS PO PRN ×2 (02:32→19:51)
[2022-04-16 03:38] LABS: LACTIC ACID 2.9 mmol/L (0.4-2.0)
[2022-04-16] MEDS ORDERED: SODIUM CHLORIDE 500 ML IV STA (04:31)
[2022-04-16 06:35] LABS: BASO % 0.3 % (0-2.0); EOS % 0.3 % (0-4.5); HEMATOCRIT 41.5 % (32.4-45.2); HEMOGLOBIN 13.2 GM/dL (10.7-15.3); LYMPH % 19.6 % (8-40); MCH 26.8 pg (25.7-33.7); MCHC 31.7 g/dl (32.0-36.0); MEAN CELL VOLUME 84.3 fl (80-96); MEAN PLT VOLUME 9.8 fl (7.5-11.1); NEUT % 78.8 % (42.8-82.8); PLATELET COUNT 178 10^3/uL (134-434); RBC 4.92 M/mm3 (3.60-5.2); RDW 14.6 % (11.6-15.6)
[2022-04-16] MEDS ORDERED: GABAPENTIN 300 MG CAPSULE ONE (06:39)
[2022-04-16] MEDS: GABAPENTIN 100 MG CAPSULE PO SCH ×2 (06:41→13:57)
[2022-04-16 06:53] LABS: CALCIUM 8.7 mg/dL (8.5-10.1)
[2022-04-16 06:54] LABS: ALBUMIN 2.9 g/dl (3.4-5.0); BLOOD UREA NITROGEN 14.2 mg/dL (7-18); INR 1.77 (0.83-1.09); MAGNESIUM 1.6 mg/dL (1.8-2.4); PROTHROMBIN TIME (PATIENT) 20.5 SEC (9.7-13.0)
[2022-04-16 06:56] LABS: ACTIVATED PTT 36.3 SECONDS (25.2-36.5)
[2022-04-16 06:58] LABS: BILIRUBIN,TOTAL 0.5 mg/dL (0.2-1); CREATININE 0.9 mg/dL (0.55-1.3)
[2022-04-16] MEDS: INSULIN SLIDING SCALE (NOVOLOG) 1 VIAL SQ SCH ×4 (08:40→21:42)
[2022-04-16] MEDS ORDERED: CHLORTHALIDONE 25 MG TABLET PO SCH (10:00)
[2022-04-16] MEDS ORDERED: AZITHROMYCIN IVPB 500 MG/250 ML BAG IVPB SCH ×2 (10:00→14:00)
[2022-04-16] MEDS ORDERED: ASPIRIN 81 MG CHEWABLE TABLETS PO SCH (10:00)
[2022-04-16] MEDS ORDERED: EZETIMIBE 10 MG TABLET (FP) PO SCH (10:00)
[2022-04-16] MEDS: APIXABAN 5 MG TABLET PO SCH ×2 (12:05→21:40)
[2022-04-16] MEDS: FUROSEMIDE 40 MG TABLET (FP) PO SCH (12:05)
[2022-04-16] MEDS: methylPREDNISolone NA SUCC 40 MG/1 ML VIAL IVPUSH SCH ×2 (13:58→17:14)
[2022-04-16 14:06] LABS: LACTIC ACID 2.9 mmol/L (0.4-2.0)
[2022-04-16] MEDS ORDERED: DOCUSATE SODIUM 100 MG CAPSULE (FP) PO PRN (19:51)
[2022-04-16] MEDS: ATORVASTATIN CA 80 MG TABLET (FP) PO SCH (21:40)
[2022-04-16] MEDS: GABAPENTIN 300 MG CAPSULE PO SCH (21:40)
[2022-04-17] MEDS: methylPREDNISolone NA SUCC 40 MG/1 ML VIAL IVPUSH SCH ×4 (01:27→21:47)
[2022-04-17] MEDS: GABAPENTIN 300 MG CAPSULE PO SCH ×3 (05:54→21:46)
[2022-04-17] MEDS: INSULIN SLIDING SCALE (NOVOLOG) 1 VIAL SQ SCH ×4 (06:04→21:47)
[2022-04-17] MEDS: APIXABAN 5 MG TABLET PO SCH ×2 (09:35→21:46)
[2022-04-17] MEDS: CHLORTHALIDONE 25 MG TABLET PO SCH (09:35)
[2022-04-17] MEDS: FUROSEMIDE 40 MG TABLET (FP) PO SCH (09:35)
[2022-04-17] MEDS: ASPIRIN 81 MG CHEWABLE TABLETS PO SCH ×2 (09:39→09:44)
[2022-04-17] MEDS: EZETIMIBE 10 MG TABLET (FP) PO SCH (09:39)
[2022-04-17] MEDS ORDERED: JARDIANCE 25 MG PO SCH (10:00)
[2022-04-17] MEDS: GLIMEPIRIDE 4 MG TABLET PO SCH (10:40)
[2022-04-17] MEDS: AZITHROMYCIN IVPB 500 MG/250 ML BAG IVPB SCH (14:14)
[2022-04-17] MEDS: ALBUTEROL SO4 2.5/IPRATROPIUM 0.5 INH SOL 3 ML VIAL.NEB. NEB SCH ×2 (14:35→20:19)
[2022-04-17] MEDS: ACETAMINOPHEN 325 MG TABLET (FP) PO PRN (15:54)
[2022-04-17 16:08] LABS: HEMATOCRIT 41.9 % (32.4-45.2); HEMOGLOBIN 13.2 GM/dL (10.7-15.3); MCH 26.3 pg (25.7-33.7); MCHC 31.4 g/dl (32.0-36.0); MEAN CELL VOLUME 83.8 fl (80-96); MEAN PLT VOLUME 9.4 fl (7.5-11.1); PLATELET COUNT 200 10^3/uL (134-434); RDW 14.1 % (11.6-15.6); WHITE BLOOD COUNT 14.2 K/mm3 (4.0-10.0)
[2022-04-17 16:27] LABS: ALBUMIN 3.1 g/dl (3.4-5.0); BLOOD UREA NITROGEN 27.3 mg/dL (7-18); CHLORIDE 99 mmol/L (98-107); SODIUM 137 mmol/L (136-145)
[2022-04-17 16:28] LABS: ANION GAP 10 MMOL/L (8-16); CALCIUM 9.2 mg/dL (8.5-10.1); CO2 28 mmol/L (21-32)
[2022-04-17 16:30] LABS: CREATININE 1.3 mg/dL (0.55-1.3); SGOT/AST 30 U/L (15-37); SGPT/ALT 50 U/L (13-61)
[2022-04-17 16:33] LABS: ALK PHOS 74 U/L (45-117); BILIRUBIN,TOTAL 0.2 mg/dL (0.2-1); TOT PROT 7.6 g/dl (6.4-8.2)
[2022-04-17 16:38] LABS: GLUCOSE,RANDOM 401 mg/dL (74-106); LACTIC ACID 2.8 mmol/L (0.4-2.0)
[2022-04-17] MEDS: PANTOPRAZOLE 40 MG TABLET PO SCH (17:38)
[2022-04-17] MEDS ORDERED: SODIUM CHLORIDE 1,000 ML IV SCH (18:15)
[2022-04-17] MEDS ORDERED: INSULIN (NOVOLOG) ASPART 100 UNITS/ML 10ML VIAL ONE (21:15)
[2022-04-17] MEDS: ATORVASTATIN CA 80 MG TABLET (FP) PO SCH (21:46)
[2022-04-18] MEDS: INSULIN SLIDING SCALE (NOVOLOG) 1 VIAL SQ SCH ×4 (06:53→23:14)
[2022-04-18] MEDS: GLIMEPIRIDE 4 MG TABLET PO SCH (06:54)
[2022-04-18] MEDS: GABAPENTIN 300 MG CAPSULE PO SCH ×3 (06:55→23:14)
[2022-04-18] MEDS ORDERED: INSULIN (NOVOLOG) ASPART 100 UNITS/ML 10ML VIAL ONE ×2 (07:00→23:05)
[2022-04-18] MEDS: ALBUTEROL SO4 2.5/IPRATROPIUM 0.5 INH SOL 3 ML VIAL.NEB. NEB SCH ×3 (07:45→20:15)
[2022-04-18] MEDS: methylPREDNISolone NA SUCC 40 MG/1 ML VIAL IVPUSH SCH (09:44)
[2022-04-18] MEDS: PANTOPRAZOLE 40 MG TABLET PO SCH (09:45)
[2022-04-18] MEDS: FUROSEMIDE 40 MG TABLET (FP) PO SCH (09:45)
[2022-04-18] MEDS: EZETIMIBE 10 MG TABLET (FP) PO SCH (09:45)
[2022-04-18] MEDS: APIXABAN 5 MG TABLET PO SCH ×2 (09:45→23:14)
[2022-04-18] MEDS: CHLORTHALIDONE 25 MG TABLET PO SCH (09:47)
[2022-04-18] MEDS: ASPIRIN 81 MG CHEWABLE TABLETS PO SCH (09:48)
[2022-04-18] MEDS: ACETAMINOPHEN 325 MG TABLET (FP) PO PRN (12:51)
[2022-04-18] MEDS: AZITHROMYCIN IVPB 500 MG/250 ML BAG IVPB SCH (14:51)
[2022-04-18 21:14] LABS: PH,URINE 6.5 (5.0-8.0); URINE APPEARANCE CLEAR; URINE BILIRUBIN NEGATIVE (NEGATIVE); URINE COLOR YELLOW; URINE GLUCOSE (UA) 3+ (NEGATIVE); URINE KETONE NEGATIVE (NEGATIVE); URINE LEUK ESTERASE NEGATIVE (NEGATIVE); URINE NITRITE NEGATIVE (NEGATIVE); URINE PROTEIN NEGATIVE (NEGATIVE); URINE UROBILINOGEN 0.2 mg/dL (0.2-1.0)
[2022-04-18] MEDS: ATORVASTATIN CA 80 MG TABLET (FP) PO SCH (23:14)
[2022-04-19] MEDS: INSULIN SLIDING SCALE (NOVOLOG) 1 VIAL SQ SCH ×4 (06:25→21:40)
[2022-04-19] MEDS: GLIMEPIRIDE 4 MG TABLET PO SCH (06:25)
[2022-04-19] MEDS: GABAPENTIN 300 MG CAPSULE PO SCH ×3 (06:25→21:39)
[2022-04-19] MEDS: ALBUTEROL SO4 2.5/IPRATROPIUM 0.5 INH SOL 3 ML VIAL.NEB. NEB SCH ×2 (09:00→19:37)
[2022-04-19] MEDS: APIXABAN 5 MG TABLET PO SCH ×2 (10:29→21:39)
[2022-04-19] MEDS: CHLORTHALIDONE 25 MG TABLET PO SCH (10:29)
[2022-04-19] MEDS: ASPIRIN 81 MG CHEWABLE TABLETS PO SCH (10:29)
[2022-04-19] MEDS: EZETIMIBE 10 MG TABLET (FP) PO SCH (10:30)
[2022-04-19] MEDS: FUROSEMIDE 40 MG TABLET (FP) PO SCH (10:30)
[2022-04-19] MEDS: PANTOPRAZOLE 40 MG TABLET PO SCH (10:30)
[2022-04-19 18:21] LABS: CREATININE 1.1 mg/dL (0.55-1.3)
[2022-04-19] MEDS: ATORVASTATIN CA 80 MG TABLET (FP) PO SCH (21:39)
[2022-04-20] MEDS: INSULIN SLIDING SCALE (NOVOLOG) 1 VIAL SQ SCH ×4 (06:07→21:41)
[2022-04-20] MEDS: GLIMEPIRIDE 4 MG TABLET PO SCH (06:11)
[2022-04-20] MEDS: GABAPENTIN 300 MG CAPSULE PO SCH ×3 (06:11→21:37)
[2022-04-20] MEDS: ALBUTEROL SO4 2.5/IPRATROPIUM 0.5 INH SOL 3 ML VIAL.NEB. NEB SCH ×3 (07:40→20:32)
[2022-04-20] MEDS: APIXABAN 5 MG TABLET PO SCH ×2 (09:17→21:37)
[2022-04-20] MEDS: CHLORTHALIDONE 25 MG TABLET PO SCH (09:17)
[2022-04-20] MEDS: ASPIRIN 81 MG CHEWABLE TABLETS PO SCH (09:17)
[2022-04-20] MEDS: FUROSEMIDE 40 MG TABLET (FP) PO SCH (09:17)
[2022-04-20] MEDS: EZETIMIBE 10 MG TABLET (FP) PO SCH (09:17)
[2022-04-20] MEDS: PANTOPRAZOLE 40 MG TABLET PO SCH (09:17)
[2022-04-20 10:54] LABS: LACTIC ACID 2.9 mmol/L (0.4-2.0)
[2022-04-20 10:59] LABS: BLOOD UREA NITROGEN 27.3 mg/dL (7-18)
[2022-04-20 11:00] LABS: CALCIUM 9.9 mg/dL (8.5-10.1)
[2022-04-20] MEDS ORDERED: INSULIN (NOVOLOG) ASPART 100 UNITS/ML 10ML VIAL ONE ×3 (11:32→21:40)
[2022-04-20] MEDS: POTASSIUM CHLORIDE TABS 20 MEQ TABLET.ER (FP) PO SCH (12:01)
[2022-04-20] MEDS: ATORVASTATIN CA 80 MG TABLET (FP) PO SCH (21:37)
[2022-04-20] MEDS: ACETAMINOPHEN 325 MG TABLET (FP) PO PRN (21:41)
[2022-04-21 05:19] VITALS: RESP 20
[2022-04-21] MEDS: INSULIN SLIDING SCALE (NOVOLOG) 1 VIAL SQ SCH ×2 (06:20→11:23)
[2022-04-21] MEDS: GLIMEPIRIDE 4 MG TABLET PO SCH (06:20)
[2022-04-21] MEDS: GABAPENTIN 300 MG CAPSULE PO SCH ×2 (06:20→13:39)
[2022-04-21] MEDS: ALBUTEROL SO4 2.5/IPRATROPIUM 0.5 INH SOL 3 ML VIAL.NEB. NEB SCH ×2 (08:19→15:00)
[2022-04-21] MEDS: APIXABAN 5 MG TABLET PO SCH (09:49)
[2022-04-21] MEDS: FUROSEMIDE 40 MG TABLET (FP) PO SCH (09:49)
[2022-04-21] MEDS: POTASSIUM CHLORIDE TABS 20 MEQ TABLET.ER (FP) PO SCH (09:49)
[2022-04-21] MEDS: CHLORTHALIDONE 25 MG TABLET PO SCH (09:50)
[2022-04-21] MEDS: EZETIMIBE 10 MG TABLET (FP) PO SCH (09:50)
[2022-04-21] MEDS: ASPIRIN 81 MG CHEWABLE TABLETS PO SCH (09:50)
[2022-04-21] MEDS: PANTOPRAZOLE 40 MG TABLET PO SCH (09:50)
[2022-04-21 12:09] VITALS: BP 119/57; PULSE 92; TEMP 98.3
== END 2022-04-21 16:24 | disposition home or self-care (01) | DRG 194 ==
LOC: JER 18:11 → JERBED 21:17 → J6S 04-16 09:40
PROVIDERS: ADMIT Internal Medicine; ATTEND Internal Medicine
DX: J18.9 Pneumonia, unspecified organism (principal); E87.20 Acidosis, unspecified; J44.1 Chronic obstructive pulmonary disease with (acute) exacerbation; Z68.41 Body mass index [BMI] 40.0-44.9, adult; I69.354 Hemiplegia and hemiparesis following cerebral infarction affecting left non-dominant side; E66.01 Morbid (severe) obesity due to excess calories; E11.65 Type 2 diabetes mellitus with hyperglycemia; R09.02 Hypoxemia; E78.5 Hyperlipidemia, unspecified; I10 Essential (primary) hypertension; G47.33 Obstructive sleep apnea (adult) (pediatric); I25.10 Atherosclerotic heart disease of native coronary artery without angina pectoris; Z95.1 Presence of aortocoronary bypass graft; Z95.5 Presence of coronary angioplasty implant and graft
CPT/HCPCS: 0241U-QW; 36415; 71045-TC-FY; 76775-TC; 80048; 80053; 81003; 82803; 82962; 83036; 83605; 83735; 83880; 84100; 84484; 85025; 85027; 85610; 85730; 86850; 86900; 86901; 87086; 93005; 93010; 94640; 97116-GP; 97161-GP; 99285-25